=== PATIENT | male | born 1965 | race Caucasian/White ===

== ENCOUNTER 2018-04-10 06:12 | Inpatient (IN) ==
[2018-04-10 08:12] LABS: Baso % (Auto) 0.5 % (0.0-2.0); Eos # (Auto) 0.2 th/mm3 (0.0-0.4); Eos % (Auto) 1.9 % (0.0-4.0); Hematocrit 41.6 % (39.0-51.0); Hemoglobin 14.3 gm/dL (13.0-17.0); Lymph # (Auto) 0.9 th/mm3 (1.0-4.8); Lymph % (Auto) 9.5 % (9.0-44.0); Mean Corpuscular HGB Conc 34.2 % (32.0-36.0); Mean Corpuscular Hemoglobin 32.4 pg (27.0-34.0); Mean Corpuscular Volume 94.6 fL (80.0-100.0); Mean Platelet Volume 8.1 fL (7.0-11.0); Mono # (Auto) 0.6 th/mm3 (0.0-0.9); Mono % (Auto) 5.9 % (0.0-8.0); Neut # (Auto) 7.7 th/mm3 (1.8-7.7); Neut % (Auto) 82.2 % (16.0-70.0); Platelet Count 267 th/mm3 (150-450); Red Cell Distribution Width 13.8 % (11.6-17.2); White Blood Count 9.4 th/mm3 (4.0-11.0)
--- NOTE | 2018-04-10 08:16 | XR ---
EXAM DATE: 04/10/2018 8:04 AM EDT AGE/SEX: 52 years / Male INDICATIONS: Shortness of breath intermittent for 1 month. CLINICAL DATA: This is the patient's initial encounter. Patient reports that signs and symptoms have been present for 1 month and indicates a pain score of 0/10. MEDICAL/SURGICAL HISTORY: None. None. COMPARISON: No prior exams available for comparison. FINDINGS: A single AP view of the chest demonstrates the lungs to be symmetrically aerated without evidence of mass, infiltrate or effusion. Moderate enlargement of cardiac silhouette. Pulmonary vascularity is no rmal. The cardiomediastinal contours are unremarkable. Osseous structures are intact. CONCLUSION: Moderate enlargement of the cardiac silhouette could be cardiomyopathy or pericardial effusion. Electronically signed by: Robret Sanchez MD 04/10/2018 8:14 AM EDT
[2018-04-10 08:33] LABS: Alanine Aminotransferase 31 U/L (12-78); Albumin 3.7 g/dL (3.4-5.0); Anion Gap 6 meq/L (5-15); Aspartate Aminotransferase 13 U/L (15-37); Blood Urea Nitrogen 20 mg/dL (7-18); Calcium 8.8 mg/dL (8.5-10.1); Carbon Dioxide 26.9 meq/L (21.0-32.0); Chloride 107 meq/L (98-107); Glomerular Filtration Rate 59 mL/min (>89); Glucose,Random 102 mg/dL (74-106); Lipase 120 U/L (73-393); Potassium 4.4 meq/L (3.5-5.1); Sodium 140 meq/L (136-145)
[2018-04-10 08:39] LABS: Alkaline Phosphatase 57 U/L (45-117); Creatine Kinase 89 U/L (39-308); Total Protein 6.8 g/dL (6.4-8.2); Troponin I 0.41 ng/mL (0.02-0.05)
--- NOTE | 2018-04-10 09:33 | ED ---
HPI General Chief Complaint: Abdominal Pain Stated Complaint: Back pain,Abd pain Time Seen by Provider: 04/10/18 07:12 History of Present Illness HPI narrative: This is a 52-year-old male with a history of aortic regurgitation , who presents today with one-month history of intermittent exertional epigastric pain. Patient reports the pain comes on and is rated as a 6-7 on the 10 scale. He states that it starts shortly after exerting himself. He states that it is relieved by rest. Patient also reports that sometimes the epigastric discomfort will be relieved by eating. He states that he presents today because he is also had some shortness of breath when he works out. He denies any chest pain, chest pressure. He denies any previous history of such. He does report that he has known aortic regurgitation and was told that he had a slightly enlarged heart. There are no other symptoms at the time of my examination. Related Data Home Medications Medication Instructions Recorded Confirmed No Known Home Medications 04/10/18 04/10/18 Allergies Allergy/AdvReac Type Severity Reaction Status Date / Time tree and shrub pollen Allergy Intermediate itchy rash Verified 04/10/18 07:48 poison oak extract Allergy Swelling Verified 04/10/18 07:47 of Lip/Tongue/Throat Review of Systems ROS: all other systems reviewed are negative Constitutional Denies chills and Denies fever(s) Eyes Reports system reviewed and no additional complaints, except as [facility] ENT Reports system reviewed and no additional complaints, except as [facility] Cardiovascular Denies chest pain, Denies rapid heart rate, Denies irregular heart rhythm, Reports palpitations and Reports other (Occasional "skipped beat".) Respiratory Denies chest congestion, Denies cough, Denies pain on inspiration, Denies pain with cough and Reports dyspnea Gastrointestinal Denies dysphagia, Denies dyspepsia, Denies nausea, Denies vomiting and Reports other (Epigastric pain. Brought on by exertion. Relieved with rest.) Genitourinary Denies hematuria and Denies flank pain Musculoskeletal Denies back pain and Reports other Integumentary/Breasts Denies new lesions and Denies rash Neurologic Reports system reviewed and no additional complaints, except as [facility] Psychiatric Reports system reviewed and no additional complaints, except as [facility] Medical History Medical History Aortic valve regurgitation (Acute) Palpitations (Acute) Social History Social History Substance History: No History of Abuse Second Hand Smoke Exposure: No Smoking Status: Never smoker Tobacco Type: Smokeless Tobacco How Often Do You Have a Drink Containing Alcohol: 2 to 3 times a week Recent Travel in [facility] within the Last 8 Weeks: No Recent Out of Country Travel within the Last 8 Weeks: No Immunization History Tetanus Immunization: Unsure Hx Influenza Vaccine This Season: No Exam Narrative Exam Narrative: GENERAL: Well-developed well-nourished male in no acute respiratory distress. SKIN: Focused skin assessment warm/dry. HEAD: Atraumatic. Normocephalic. EYES: No scleral icterus. No injection or drainage. ENT: No nasal bleeding or discharge. Mucous membranes pink and moist. NECK: Trachea midline. No JVD. Supple. CARDIOVASCULAR: Regular rate and rhythm. 3/6 systolic murmur left upper sternal border. RESPIRATORY: No accessory muscle use. Clear to auscultation. Breath sounds equal bilaterally. GASTROINTESTINAL: Abdomen soft, non-tender, nondistended. Questionable minimal discomfort over the right upper quadrant. No true Otero sign. No rebound. No pulsatile masses. MUSCULOSKELETAL: No obvious deformities. No clubbing. No cyanosis. No edema. NEUROLOGICAL: Awake and alert. No obvious cranial nerve deficits. Motor grossly within normal limits. Normal speech. PSYCHIATRIC: Appropriate mood and affect; insight and judgment normal. Course Initial Documented Vital Signs Temperature 97.7 F 04/10/18 06:16 Pulse Rate 81 04/10/18 06:16 Respiratory Rate 16 04/10/18 06:16 Blood Pressure 146/92 H 04/10/18 06:16 Pulse Oximetry 99 04/10/18 06:16 Last Documented Vital Signs Temperature 97.8 F 04/14/18 03:00 Pulse Rate 64 04/14/18 06:00 Respiratory Rate 16 04/13/18 23:00 Blood Pressure 104/76 04/14/18 03:00 Pulse Oximetry 97 04/14/18 03:00 Medical Decision Making [facility] Narrative Medical decision making narrative: 52-year-old male with a history of aortic regurgitation, presents today with complaints of exertional epigastric pain. Patient's had this on and off 1 month. Patient is pain-free at the time of examination. EKG shows LVH with T-wave inversion in the lateral leads. There is no acute ST elevation noted. Troponin is elevated at 0.41. The patient is pain-free at the time of my examination. Case was discussed with Dr. Anil Triplett, ferryboat operator helper on-call, who is requested we order a stat echocardiogram as well as inform the medical team that he will likely taken to [facility] today. I have informed the patient of the findings and he is amenable to the plan. He has been given an aspirin and 5 mg of Lopressor. Differential Diagnosis Differential Diagnosis: ACS versus peptic ulcer disease versus pancreatitis versus cholecystitis Lab Data Lab results reviewed: Yes I reviewed the patient's lab results. Result diagrams: 04/14/18 03:03 04/14/18 03:03 Lab Results 04/10/18 04/10/18 04/10/18 Range/Units 08:00 08:00 10:15 WBC 9.4 (4.0-11.0) th/mm3 RBC 4.40 L (4.50-5.90) mil/mm3 Hgb 14.3 (13.0-17.0) gm/dL Hct 41.6 (39.0-51.0) % MCV 94.6 (80.0-100.0) fL MCH 32.4 (27.0-34.0) pg MCHC 34.2 (32.0-36.0) % RDW 13.8 (11.6-17.2) % Plt Count 267 (150-450) th/mm3 MPV 8.1 (7.0-11.0) fL Neut % (Auto) 82.2 H (16.0-70.0) % Lymph % (Auto) 9.5 (9.0-44.0) % [place] % (Auto) 5.9 (0.0-8.0) % Eos % (Auto) 1.9 (0.0-4.0) % Baso % (Auto) 0.5 (0.0-2.0) % Neut # (Auto) 7.7 (1.8-7.7) th/mm3 Lymph # (Auto) 0.9 L (1.0-4.8) th/mm3 [place] # (Auto) 0.6 (0.0-0.9) th/mm3 Eos # (Auto) 0.2 (0.0-0.4) th/mm3 Baso # (Auto) 0.0 (0.0-0.2) th/mm3 WBC Differential . Differential Comment Auto diff final PT 11.6 (9.8-11.6) sec INR 1.1 Ratio APTT 25.5 (24.3-30.1) sec Sodium 140 (136-145) meq/L Potassium 4.4 (3.5-5.1) meq/L Chloride 107 (98-107) meq/L Carbon Dioxide 26.9 (21.0-32.0) meq/L Anion Gap 6 (5-15) meq/L BUN 20 H (7-18) mg/dL Creatinine 1.29 (0.60-1.30) mg/dL Estimated GFR 59 L (>89) mL/min Random Glucose 102 (74-106) mg/dL Hemoglobin A1c (4.3-6.0) % Calcium 8.8 (8.5-10.1) mg/dL Total Bilirubin 1.0 (0.2-1.0) mg/dL AST 13 L (15-37) U/L ALT 31 (12-78) U/L Alkaline Phosphatase 57 (45-117) U/L Total Creatine Kinase 89 (39-308) U/L Troponin I 0.41 H (0.02-0.05) ng/mL Total Protein 6.8 (6.4-8.2) g/dL Albumin 3.7 (3.4-5.0) g/dL Lipase 120 (73-393) U/L Urine Color (Yellw/Straw) Urine Clarity (Clear) Urine pH (5.0-8.5) Ur Specific [place] (1.002-1.035) Urine Protein (Neg-Trace) mg/dL Urine Glucose (UA) (Negative) mg/dL Urine Ketones (Negative) mg/dL Urine Occult Blood (Negative) Urine Nitrate (Negative) Urine Bilirubin (Negative) Urine Urobilinogen (Less than 2) mg/dL Ur Leukocyte Esterase (Negative) Micro UA Comment Urine Culture Comments Nasal Screen MRSA (PCR) (Negative) Blood Type Blood Type Recheck Weak D (Du) Antibody Screen MTS Gel Crossmatch Bld Prod Order Comment 04/10/18 04/10/18 04/10/18 Range/Units 10:20 14:00 16:40 WBC (4.0-11.0) th/mm3 RBC (4.50-5.90) mil/mm3 Hgb (13.0-17.0) gm/dL Hct (39.0-51.0) % MCV (80.0-100.0) fL MCH (27.0-34.0) pg MCHC (32.0-36.0) % RDW (11.6-17.2) % Plt Count (150-450) th/mm3 MPV (7.0-11.0) fL Neut % (Auto) (16.0-70.0) % Lymph % (Auto) (9.0-44.0) % [place] % (Auto) (0.0-8.0) % Eos % (Auto) (0.0-4.0) % Baso % (Auto) (0.0-2.0) % Neut # (Auto) (1.8-7.7) th/mm3 Lymph # (Auto) (1.0-4.8) th/mm3 [place] # (Auto) (0.0-0.9) th/mm3 Eos # (Auto) (0.0-0.4) th/mm3 Baso # (Auto) (0.0-0.2) th/mm3 WBC Differential Differential Comment PT (9.8-11.6) sec INR Ratio APTT (24.3-30.1) sec Sodium (136-145) meq/L Potassium (3.5-5.1) meq/L Chloride (98-107) meq/L Carbon Dioxide (21.0-32.0) meq/L Anion Gap (5-15) meq/L BUN (7-18) mg/dL Creatinine (0.60-1.30) mg/dL Estimated GFR (>89) mL/min Random Glucose (74-106) mg/dL Hemoglobin A1c (4.3-6.0) % Calcium (8.5-10.1) mg/dL Total Bilirubin (0.2-1.0) mg/dL AST (15-37) U/L ALT (12-78) U/L Alkaline Phosphatase (45-117) U/L Total Creatine Kinase (39-308) U/L Troponin I (0.02-0.05) ng/mL Total Protein (6.4-8.2) g/dL Albumin (3.4-5.0) g/dL Lipase (73-393) U/L Urine Color Straw Yellow (Yellw/Straw) Urine Clarity Clear Clear (Clear) Urine pH 5.0 5.0 (5.0-8.5) Ur Specific [place] 1.006 1.060 H (1.002-1.035) Urine Protein Negative Negative (Neg-Trace) mg/dL Urine Glucose (UA) Negative Negative (Negative) mg/dL Urine Ketones Negative Negative (Negative) mg/dL Urine Occult Blood Negative Negative (Negative) Urine Nitrate Negative Negative (Negative) Urine Bilirubin Negative Negative (Negative) Urine Urobilinogen Less than 2 Less than 2 (Less than 2) mg/dL Ur Leukocyte Esterase Negative Negative (Negative) Micro UA Comment Culture not ind Culture not ind Urine Culture Comments Culture not ind Culture not ind Nasal Screen MRSA (PCR) Not detected (Negative) Blood Type Blood Type Recheck Weak D (Du) Antibody Screen MTS Gel Crossmatch Bld Prod Order Comment 04/10/18 04/10/18 04/10/18 Range/Units 16:45 19:58 19:58 WBC 8.7 (4.0-11.0) th/mm3 RBC 4.36 L (4.50-5.90) mil/mm3 Hgb 14.3 (13.0-17.0) gm/dL Hct 40.2 (39.0-51.0) % MCV 92.2 (80.0-100.0) fL MCH 32.7 (27.0-34.0) pg MCHC 35.5 (32.0-36.0) % RDW 13.4 (11.6-17.2) % Plt Count 263 (150-450) th/mm3 MPV 8.3 (7.0-11.0) fL Neut % (Auto) (16.0-70.0) % Lymph % (Auto) (9.0-44.0) % [place] % (Auto) (0.0-8.0) % Eos % (Auto) (0.0-4.0) % Baso % (Auto) (0.0-2.0) % Neut # (Auto) (1.8-7.7) th/mm3 Lymph # (Auto) (1.0-4.8) th/mm3 [place] # (Auto) (0.0-0.9) th/mm3 Eos # (Auto) (0.0-0.4) th/mm3 Baso # (Auto) (0.0-0.2) th/mm3 WBC Differential Differential Comment PT (9.8-11.6) sec INR Ratio APTT (24.3-30.1) sec Sodium (136-145) meq/L Potassium (3.5-5.1) meq/L Chloride (98-107) meq/L Carbon Dioxide (21.0-32.0) meq/L Anion Gap (5-15) meq/L BUN (7-18) mg/dL Creatinine (0.60-1.30) mg/dL Estimated GFR (>89) mL/min Random Glucose (74-106) mg/dL Hemoglobin A1c (4.3-6.0) % Calcium (8.5-10.1) mg/dL Total Bilirubin (0.2-1.0) mg/dL AST (15-37) U/L ALT (12-78) U/L Alkaline Phosphatase (45-117) U/L Total Creatine Kinase (39-308) U/L Troponin I 0.43 H (0.02-0.05) ng/mL Total Protein (6.4-8.2) g/dL Albumin (3.4-5.0) g/dL Lipase (73-393) U/L Urine Color (Yellw/Straw) Urine Clarity (Clear) Urine pH (5.0-8.5) Ur Specific [place] (1.002-1.035) Urine Protein (Neg-Trace) mg/dL Urine Glucose (UA) (Negative) mg/dL Urine Ketones (Negative) mg/dL Urine Occult Blood (Negative) Urine Nitrate (Negative) Urine Bilirubin (Negative) Urine Urobilinogen (Less than 2) mg/dL Ur Leukocyte Esterase (Negative) Micro UA Comment Urine Culture Comments Nasal Screen MRSA (PCR) (Negative) Blood Type A Positive Blood Type Recheck Required Weak D (Du) Antibody Screen Negative MTS Gel Crossmatch Bld Prod Order Comment 04/10/18 04/11/18 04/11/18 Range/Units 19:58 02:43 02:43 WBC 7.0 (4.0-11.0) th/mm3 RBC 4.27 L (4.50-5.90) mil/mm3 Hgb 13.6 (13.0-17.0) gm/dL Hct 39.7 (39.0-51.0) % MCV 93.0 (80.0-100.0) fL MCH 31.9 (27.0-34.0) pg MCHC 34.3 (32.0-36.0) % RDW 13.5 (11.6-17.2) % Plt Count 248 (150-450) th/mm3 MPV 8.0 (7.0-11.0) fL Neut % (Auto) 63.0 (16.0-70.0) % Lymph % (Auto) 22.2 (9.0-44.0) % [place] % (Auto) 8.8 H (0.0-8.0) % Eos % (Auto) 5.3 H (0.0-4.0) % Baso % (Auto) 0.7 (0.0-2.0) % Neut # (Auto) 4.4 (1.8-7.7) th/mm3 Lymph # (Auto) 1.6 (1.0-4.8) th/mm3 [place] # (Auto) 0.6 (0.0-0.9) th/mm3 Eos # (Auto) 0.4 (0.0-0.4) th/mm3 Baso # (Auto) 0.0 (0.0-0.2) th/mm3 WBC Differential . Differential Comment Auto diff final PT (9.8-11.6) sec INR Ratio APTT 25.8 (24.3-30.1) sec Sodium (136-145) meq/L Potassium (3.5-5.1) meq/L Chloride (98-107) meq/L Carbon Dioxide (21.0-32.0) meq/L Anion Gap (5-15) meq/L BUN (7-18) mg/dL Creatinine (0.60-1.30) mg/dL Estimated GFR (>89) mL/min Random Glucose (74-106) mg/dL Hemoglobin A1c (4.3-6.0) % Calcium (8.5-10.1) mg/dL Total Bilirubin (0.2-1.0) mg/dL AST (15-37) U/L ALT (12-78) U/L Alkaline Phosphatase (45-117) U/L Total Creatine Kinase (39-308) U/L Troponin I 0.61 H* (0.02-0.05) ng/mL Total Protein (6.4-8.2) g/dL Albumin (3.4-5.0) g/dL Lipase (73-393) U/L Urine Color (Yellw/Straw) Urine Clarity (Clear) Urine pH (5.0-8.5) Ur Specific [place] (1.002-1.035) Urine Protein (Neg-Trace) mg/dL Urine Glucose (UA) (Negative) mg/dL Urine Ketones (Negative) mg/dL Urine Occult Blood (Negative) Urine Nitrate (Negative) Urine Bilirubin (Negative) Urine Urobilinogen (Less than 2) mg/dL Ur Leukocyte Esterase (Negative) Micro UA Comment Urine Culture Comments Nasal Screen MRSA (PCR) (Negative) Blood Type Blood Type Recheck Weak D (Du) Antibody Screen MTS Gel Crossmatch Bld Prod Order Comment 04/11/18 04/12/18 04/13/18 Range/Units 02:43 03:38 00:53 WBC 7.9 (4.0-11.0) th/mm3 RBC 4.31 L (4.50-5.90) mil/mm3 Hgb 13.8 (13.0-17.0) gm/dL Hct 40.0 (39.0-51.0) % MCV 93.0 (80.0-100.0) fL MCH 32.1 (27.0-34.0) pg MCHC 34.5 (32.0-36.0) % RDW 13.9 (11.6-17.2) % Plt Count 238 (150-450) th/mm3 MPV 8.3 (7.0-11.0) fL Neut % (Auto) (16.0-70.0) % Lymph % (Auto) (9.0-44.0) % [place] % (Auto) (0.0-8.0) % Eos % (Auto) (0.0-4.0) % Baso % (Auto) (0.0-2.0) % Neut # (Auto) (1.8-7.7) th/mm3 Lymph # (Auto) (1.0-4.8) th/mm3 [place] # (Auto) (0.0-0.9) th/mm3 Eos # (Auto) (0.0-0.4) th/mm3 Baso # (Auto) (0.0-0.2) th/mm3 WBC Differential Differential Comment PT (9.8-11.6) sec INR Ratio APTT (24.3-30.1) sec Sodium 142 (136-145) meq/L Potassium 4.2 (3.5-5.1) meq/L Chloride 109 H (98-107) meq/L Carbon Dioxide 26.3 (21.0-32.0) meq/L Anion Gap 7 (5-15) meq/L BUN 17 (7-18) mg/dL Creatinine 1.18 (0.60-1.30) mg/dL Estimated GFR 65 L (>89) mL/min Random Glucose 91 (74-106) mg/dL Hemoglobin A1c (4.3-6.0) % Calcium 8.6 (8.5-10.1) mg/dL Total Bilirubin (0.2-1.0) mg/dL AST (15-37) U/L ALT (12-78) U/L Alkaline Phosphatase (45-117) U/L Total Creatine Kinase (39-308) U/L Troponin I (0.02-0.05) ng/mL Total Protein (6.4-8.2) g/dL Albumin (3.4-5.0) g/dL Lipase (73-393) U/L Urine Color (Yellw/Straw) Urine Clarity (Clear) Urine pH (5.0-8.5) Ur Specific [place] (1.002-1.035) Urine Protein (Neg-Trace) mg/dL Urine Glucose (UA) (Negative) mg/dL Urine Ketones (Negative) mg/dL Urine Occult Blood (Negative) Urine Nitrate (Negative) Urine Bilirubin (Negative) Urine Urobilinogen (Less than 2) mg/dL Ur Leukocyte Esterase (Negative) Micro UA Comment Urine Culture Comments Nasal Screen MRSA (PCR) (Negative) Blood Type A Positive Blood Type Recheck Weak D (Du) Antibody Screen Negative MTS Gel Crossmatch See Detail Bld Prod Order Comment 04/13/18 04/13/18 04/13/18 Range/Units 00:53 03:37 03:37 WBC (4.0-11.0) th/mm3 RBC (4.50-5.90) mil/mm3 Hgb (13.0-17.0) gm/dL Hct (39.0-51.0) % MCV (80.0-100.0) fL MCH (27.0-34.0) pg MCHC (32.0-36.0) % RDW (11.6-17.2) % Plt Count (150-450) th/mm3 MPV (7.0-11.0) fL Neut % (Auto) (16.0-70.0) % Lymph % (Auto) (9.0-44.0) % [place] % (Auto) (0.0-8.0) % Eos % (Auto) (0.0-4.0) % Baso % (Auto) (0.0-2.0) % Neut # (Auto) (1.8-7.7) th/mm3 Lymph # (Auto) (1.0-4.8) th/mm3 [place] # (Auto) (0.0-0.9) th/mm3 Eos # (Auto) (0.0-0.4) th/mm3 Baso # (Auto) (0.0-0.2) th/mm3 WBC Differential Differential Comment PT 11.4 (9.8-11.6) sec INR 1.1 Ratio APTT (24.3-30.1) sec Sodium (136-145) meq/L Potassium (3.5-5.1) meq/L Chloride (98-107) meq/L Carbon Dioxide (21.0-32.0) meq/L Anion Gap (5-15) meq/L BUN (7-18) mg/dL Creatinine (0.60-1.30) mg/dL Estimated GFR (>89) mL/min Random Glucose (74-106) mg/dL Hemoglobin A1c 5.9 (4.3-6.0) % Calcium (8.5-10.1) mg/dL Total Bilirubin (0.2-1.0) mg/dL AST (15-37) U/L ALT (12-78) U/L Alkaline Phosphatase (45-117) U/L Total Creatine Kinase (39-308) U/L Troponin I (0.02-0.05) ng/mL Total Protein (6.4-8.2) g/dL Albumin (3.4-5.0) g/dL Lipase (73-393) U/L Urine Color (Yellw/Straw) Urine Clarity (Clear) Urine pH (5.0-8.5) Ur Specific [place] (1.002-1.035) Urine Protein (Neg-Trace) mg/dL Urine Glucose (UA) (Negative) mg/dL Urine Ketones (Negative) mg/dL Urine Occult Blood (Negative) Urine Nitrate (Negative) Urine Bilirubin (Negative) Urine Urobilinogen (Less than 2) mg/dL Ur Leukocyte Esterase (Negative) Micro UA Comment Urine Culture Comments Nasal Screen MRSA (PCR) (Negative) Blood Type Blood Type Recheck Weak D (Du) Cancelled Antibody Screen MTS Gel Crossmatch Bld Prod Order Comment 04/14/18 04/14/18 Range/Units 03:03 03:03 WBC 6.4 (4.0-11.0) th/mm3 RBC 4.32 L (4.50-5.90) mil/mm3 Hgb 13.9 (13.0-17.0) gm/dL Hct 40.7 (39.0-51.0) % MCV 94.4 (80.0-100.0) fL MCH 32.2 (27.0-34.0) pg MCHC 34.1 (32.0-36.0) % RDW 13.9 (11.6-17.2) % Plt Count 231 (150-450) th/mm3 MPV 8.3 (7.0-11.0) fL Neut % (Auto) (16.0-70.0) % Lymph % (Auto) (9.0-44.0) % [place] % (Auto) (0.0-8.0) % Eos % (Auto) (0.0-4.0) % Baso % (Auto) (0.0-2.0) % Neut # (Auto) (1.8-7.7) th/mm3 Lymph # (Auto) (1.0-4.8) th/mm3 [place] # (Auto) (0.0-0.9) th/mm3 Eos # (Auto) (0.0-0.4) th/mm3 Baso # (Auto) (0.0-0.2) th/mm3 WBC Differential Differential Comment PT (9.8-11.6) sec INR Ratio APTT (24.3-30.1) sec Sodium 143 (136-145) meq/L Potassium 4.2 (3.5-5.1) meq/L Chloride 110 H (98-107) meq/L Carbon Dioxide 27.3 (21.0-32.0) meq/L Anion Gap 6 (5-15) meq/L BUN 12 (7-18) mg/dL Creatinine 1.04 (0.60-1.30) mg/dL Estimated GFR 75 L (>89) mL/min Random Glucose 93 (74-106) mg/dL Hemoglobin A1c (4.3-6.0) % Calcium 8.7 (8.5-10.1) mg/dL Total Bilirubin (0.2-1.0) mg/dL AST (15-37) U/L ALT (12-78) U/L Alkaline Phosphatase (45-117) U/L Total Creatine Kinase (39-308) U/L Troponin I (0.02-0.05) ng/mL Total Protein (6.4-8.2) g/dL Albumin (3.4-5.0) g/dL Lipase (73-393) U/L Urine Color (Yellw/Straw) Urine Clarity (Clear) Urine pH (5.0-8.5) Ur Specific [place] (1.002-1.035) Urine Protein (Neg-Trace) mg/dL Urine Glucose (UA) (Negative) mg/dL Urine Ketones (Negative) mg/dL Urine Occult Blood (Negative) Urine Nitrate (Negative) Urine Bilirubin (Negative) Urine Urobilinogen (Less than 2) mg/dL Ur Leukocyte Esterase (Negative) Micro UA Comment Urine Culture Comments Nasal Screen MRSA (PCR) (Negative) Blood Type Blood Type Recheck Weak D (Du) Antibody Screen MTS Gel Crossmatch Bld Prod Order Comment Imaging Data Radiologist's impression: Chest X-Ray 04/10/18 07:36 CONCLUSION: Moderate enlargement of the cardiac silhouette could be cardiomyopathy or pericardial effusion. Carotid Doppler Study 04/11/18 16:24 CONCLUSION: 1. Right Internal Carotid Artery: No significant stenosis or atherosclerotic plaque is visualized. 2. Left Internal Carotid Artery: No significant stenosis or atherosclerotic plaque is visualized. 3. Antegrade flow both vertebral arteries. ECG Data EKG Prior to Arrival: No Attestation: I personally reviewed and interpreted this ECG as follows: (Sinus rhythm rate is 76. Patient had LVH by voltage criteria. There were inverted T waves noted in V5 V6, 1 and aVL. No acute ST elevation noted.) Discharge Plan Discharge Disposition Patient Disposition: 30 Still Patient Discharge Details Diagnosis: Non-STEMI (non-ST elevated myocardial infarction), Cardiomegaly, Aortic regurgitation Physicians Team ED Provider: Mathew Sandoval Primary Care Provider: Primary Care Kiana Barroso Attending Provider: Rick Toscano Other Providers: Anil Triplett ; Mirian Hernandez Status ED Status: Left Department Discharge Information Discharge Date/Time: 04/10/18 11:01
--- NOTE | 2018-04-10 09:50 | P.HPFP ---
History of Present Illness Primary Care Physician: No Primary Care Physician <Rick Toscano - 04/11/18 11:53> No Primary Care Physician <Heath Vazquez - 04/10/18 09:50> History of Present Illness: Patient is a 52-year-old male with past history of aortic regurgitation, cardiomegaly who presents today for abdominal pain. He reports that he began having abdominal pain approximately 1 month ago, is typically present when he is physically active. Is not exacerbated by position or food. At the same time he will have a pain in the center of his back. He also occasionally notes shortness of breath. He denies nausea, vomiting, fever , chills, chest pain, left arm or jaw pain, lightheadedness, change in vision, headache. He did attempt to relieve the abdominal pain with an antacid to no relief. He also reports one episode of dizziness yesterday. He reports he came in today because "I know my body I know when something is up." Patient reports normal bowel movements, soft, brown, no blood or black spots. Normal urination, no dysuria, no change in frequency/color/smell. No other complaints today. 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 Family Mother: Cholecystectomy, "Leaky valve" Father: RA Social EtOH: On the weekends, 8-12 beers Smoking: Chew tobacco ~ 35 years Drugs: None <Heath Vazquez - 04/10/18 11:06> - Diagnosis (1) Non-STEMI (non-ST elevated myocardial infarction) (2) Aortic regurgitation (3) Nutrition, metabolism, and development symptoms <Rick Toscano - 04/11/18 11:53> (1) Non-STEMI (non-ST elevated myocardial infarction) (2) Aortic regurgitation (3) Nutrition, metabolism, and development symptoms <Heath Vazquez - 04/10/18 10:51> Inpatient Certification: I certify that the inpatient services were ordered in accordance with Medicare regulations governing the order. This includes certification that hospital inpatient services are reasonable and necessary and in the case of services not specified as inpatient-only under 42 CFR 419.22(n), that they are appropriately provided as inpatient services in accordance to with the 2-midnight benchmark under 43 CFR 412.3(e) <Rick Toscano 04/11/18 11:53> Review of Systems Constitutional: Denies body ache(s), Denies chills, Denies fever(s), Denies headache(s), Denies lack of energy, Denies weakness <Heath Vazquez 11:06> Eyes: Denies blind spots, Denies blurry vision, Denies change in vision, Denies double vision, Denies loss of vision <Heath Vazquez 04/10/18 11:06> Ears, Nose, Mouth, and Throat: Denies abnormal hearing, Denies ear pain, Denies nosebleed, Denies nasal discharge <Heath Vazquez 04/10/18 11:06> Cardiovascular: Reports shortness of breath when lying down (Occasional SOB while lying down), Denies chest pain, Denies chest pain at rest, Denies chest pain with activity, Denies excessive sweating, Denies fast heart rate, Denies foot swelling, Denies generalized swelling, Denies leg pain with activity, Denies radiating jaw, neck or arm pain <Heath Vazquez 04/10/18 11:06> Respiratory: Denies cough, Denies coughing up blood, Denies snoring, Denies wheezing <Heath Vazquez 04/10/18 11:06> Gastrointestinal: Reports abdominal pain, Reports bloating, Reports heartburn, Denies black, tarry stools, Denies bright, red blood in stools, Denies change in bowel habits, Denies change in stools, Denies coffee ground vomit, Denies constipation, Denies loose stools, Denies nausea, Denies vomiting, Denies vomiting blood <Heath Vazquez 04/10/18 11:06> Genitourinary: Denies painful urination, Denies urinary frequency <Heath Vazquez 04/10/18 11:06> Musculoskeletal: Reports back pain, Denies joint pain, Denies muscle weakness <Heath Vazquez 04/10/18 11:06> Skin/Breast: Denies rash, Denies skin ulcer, Denies sores <Heath Vazquez 04/10/18 11:06> Neurologic: Denies abnormal hearing, Denies abnormal speech, Denies confusion, Denies dizziness, Denies fainting, Denies weakness <SuelorieHeath Morocho 11:06> Psychiatric: Denies anxiety, Denies confusion <SueHeath melo 04/10/18 11: 06> Endocrine: Denies excessive sweating, Denies flushing <SuelorieHeath Morocho 05/20 11:06> Hematologic/Lymphatic: Denies easy bleeding, Denies easy bruising <SueHeath melo A 04/10/18 11:06> PMFSH - History History Provided By: Patient <SuelorieDarrion 04/10/18 09:50> - Medical History Medical History: Medical History (Last Updated 04/10/18 @ 06:19 by Cruzito Jc) Aortic valve regurgitation Palpitations <Rick Toscano 04/11/18 11:53> Medical History (Last Updated 04/10/18 @ 06:19 by Cruzito Jc) Aortic valve regurgitation Palpitations <SueHeath melo 04/10/18 09:50> - Tobacco History Second Hand Smoke Exposure: No <Heath Vazquez 04/10/18 09:50> Tobacco Use In Past 30 Days: Yes <SueHeath melo 04/10/18 09:50> Smoking Status: Never smoker <SueHeath melo 04/10/18 09:50> Tobacco Type: Smokeless Tobacco <SueHeath melo 04/10/18 09:50> - Alcohol History How Often Do You Have a Drink Containing Alcohol: 2 to 3 times a week <Heath Vazquez 04/10/18 09:50> - Substance Use History Substance History: No History of Abuse <SueHeath melo 04/10/18 09:50> - Travel History Recent Travel in the [facility] Within the Last 8 Weeks: No <Heath Vazquez 04/10 09:50> Recent Travel Out of the Country Within the Last 8 Weeks: No <Heath Vazquez 04/10/18 09:50> - Immunization History Tetanus Immunization: Unsure <Heath Vazquez 04/10/18 09:50> Hx Influenza Vaccine This Season: No <Heath Vazquez 04/10/18 09:50> Medications and Allergies Allergies Allergy/AdvReac Type Severity Reaction Status Date / Time tree and shrub pollen Allergy Intermediate itchy rash Verified 04/10/18 07:48 poison oak extract Allergy Swelling Verified 04/10/18 07:47 of Lip/Tongue/Throat <Rick Toscano - 04/11/18 11:53> Home Medications Medication Instructions Recorded Confirmed Type No Known Home Medications 04/10/18 04/10/18 History <Rick Toscano - 04/11/18 11:53> Active Medications: Active Medications Al Hydroxide/Mg Hydroxide (Milk Of [place]) 30 ml PO Q12H PRN PRN Reason: Mild Constipation Chlorhexidine Gluconate (Hibiclens 4% Topical) 1 applicatio 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 [facility] Stop: 04/16/18 16:24 Sodium Chloride 500 ml/ (Cefazolin Sodium 500 mg) 0 ml IRRIGATION PADDED [employer]ODUCTS 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 [facility] Stop: 04/16/18 16:27 Dextrose (D50w Vial) 50 ml IV.PUSH UNSCH PRN PRN Reason: PER HYPOGLYCEMIA PROTOCOL Sodium Chloride (Ns Inj) 1,000 mls @ 100 mls/hr IV.CONT .Q10H [facility] Last Admin: 04/11/18 09:16 Dose: Not Given Insulin Human Regular 100 unit (/ Sodium Chloride) 100 mls @ 3 mls/hr IV.CONT TITRATE PRN; Protocol PRN Reason: See Protocol Cefazolin Sodium 2,000 mg/ (Sodium Chloride) 100 mls @ 200 mls/hr IV.SIG [employer] [facility] Stop: 04/16/18 16:27 Metoprolol Tartrate (Lopressor) 12.5 mg PO [employer] [facility] Stop: 04/16/18 16:27 Mupirocin (Bactroban 2% Nasal Oint) 1 applicatio EACH NARE BID [facility] Stop: 04/14/18 16:27 Last Admin: 04/11/18 09:15 Dose: 1 applicatio Ondansetron HCl (Zofran Inj) 4 mg IV.PUSH Q6H PRN PRN Reason: NAUSEA OR VOMITING Senna/Docusate Sodium (Lizett-Colace) 1 tab PO BID [facility] Last Admin: 04/11/18 09:15 Dose: Not Given Sennosides (Senokot) 17.2 mg PO Q12H PRN PRN Reason: Moderate Constipation Sodium Chloride (Ns Flush) 2 ml IV.FLUSH PRN PRN PRN Reason: FLUSH AFTER USING IV ACCESS Sodium Chloride (Ns Flush) 2 ml IV.FLUSH BID [facility] Last Admin: 04/11/18 09:15 Dose: 2 ml Sodium Chloride (Ns Flush) 2 ml IV.FLUSH PRN PRN PRN Reason: FLUSH AFTER USING IV ACCESS Sodium Chloride (Ns Flush) 2 ml IV.FLUSH BID [facility] Last Admin: 04/11/18 09:15 Dose: Not Given <Rick Toscano - 04/11/18 11:53> Active Medications Sodium Chloride (Ns Flush) 2 ml IV.FLUSH PRN PRN PRN Reason: FLUSH AFTER USING IV ACCESS <Heath Vazquez - 04/10/18 09:50> Exam Vital signs: Vital Signs 04/10/18 12:35 04/10/18 17:00 04/10/18 17:01 Temperature 97.8 F Pulse Rate 70 75 Respiratory Rate 16 Blood Pressure 116/83 Pulse Oximetry 96 97 04/10/18 18:00 04/10/18 19:00 04/10/18 20:00 Temperature 98.4 F Pulse Rate 68 73 72 Respiratory Rate 18 Blood Pressure 113/78 Pulse Oximetry 97 97 04/10/18 21:00 04/10/18 22:00 04/10/18 23:00 Temperature 98.7 F Pulse Rate 66 68 96 H Respiratory Rate 20 Blood Pressure 106/79 Pulse Oximetry 99 04/11/18 00:00 04/11/18 01:00 04/11/18 02:00 Temperature Pulse Rate 54 L 56 L 54 L Respiratory Rate Blood Pressure Pulse Oximetry 04/11/18 02:15 04/11/18 03:00 04/11/18 04:00 Temperature 97.9 F Pulse Rate 78 78 Respiratory Rate 20 Blood Pressure 113/79 Pulse Oximetry 97 99 04/11/18 05:00 04/11/18 06:00 04/11/18 07:00 Temperature Pulse Rate 58 L 62 74 Respiratory Rate Blood Pressure Pulse Oximetry 04/11/18 07:27 04/11/18 08:00 04/11/18 09:00 Temperature 97.4 F L Pulse Rate 61 60 82 Respiratory Rate 16 Blood Pressure 122/87 Pulse Oximetry 98 98 04/11/18 09:45 04/11/18 10:00 Temperature Pulse Rate 68 Respiratory Rate Blood Pressure Pulse Oximetry 98 Intake & Output 04/10/18 04/11/18 04/11/18 18:59 06:59 18:59 Intake Total 495 / 495 240 / 240 Output Total 300 / 300 Balance 195 / 195 240 / 240 Weight 108.5 kg Intake: IV 15 / 15 Heparin/NS PF Inj 1,000 ML @ 0 15 / 15 mls/hr .ROUTE .[facility] Rx#: [id number] Oral 480 / 480 240 / 240 Output: Urine 300 / 300 Other: # Voids 3 Date of Last Bowel Movement 04/10/18 04/10/18 04/11/18 <Rick Toscano - 04/11/18 11:53> Vital Signs 04/10/18 06:16 04/10/18 06:20 04/10/18 07:50 Temperature 97.7 F Pulse Rate 81 Respiratory Rate 16 17 Blood Pressure 146/92 H Pulse Oximetry 99 97 Intake & Output 04/09/18 04/10/18 04/10/18 18:59 06:59 18:59 Weight 106.594 kg <Heath Vazquez - 04/10/18 09:50> Narrative: GENERAL: Laying in bed, no acute distress SKIN: Warm and dry. No acute lesions. No CVA tenderness. HEAD: Atraumatic. Normocephalic. EYES: Pupils equal and round. No scleral icterus. No injection or drainage. ENT: No nasal bleeding or discharge. Mucous membranes pink and moist. NECK: Trachea midline. No JVD. CARDIOVASCULAR: Regular rate and rhythm. Significant murmur at right sternal border. RESPIRATORY: No accessory muscle use. Clear to auscultation. Breath sounds equal bilaterally. GASTROINTESTINAL: Abdomen soft, non-tender, nondistended. Hepatic and splenic margins not palpable. MUSCULOSKELETAL: Extremities without clubbing, cyanosis, or edema. No obvious deformities. NEUROLOGICAL: Awake and alert. No obvious cranial nerve deficits. Motor grossly within normal limits. Five out of 5 muscle strength in the arms and legs. Normal speech. PSYCHIATRIC: Appropriate mood and affect; insight and judgment normal. <Heath Vazquez 04/10/18 11:06> Results - Labs Result diagrams: 04/11/18 02:43 04/11/18 02:43 <Rick Toscano 08/10/18 11:53> Abnormal lab results 04/10/18 04/10/18 04/10/18 Range/Units 14:00 19:58 19:58 RBC 4.36 L (4.50-5.90) mil/mm3 [place] % (Auto) (0.0-8.0) % Eos % (Auto) (0.0-4.0) % Chloride (98-107) meq/L Estimated GFR (>89) mL/min Troponin I 0.43 H (0.02-0.05) ng/mL Ur Specific [place] 1.060 H (1.002-1.035) 04/11/18 04/11/18 04/11/18 Range/Units 02:43 02:43 02:43 RBC 4.27 L (4.50-5.90) mil/mm3 [place] % (Auto) 8.8 H (0.0-8.0) % Eos % (Auto) 5.3 H (0.0-4.0) % Chloride 109 H (98-107) meq/L Estimated GFR 65 L (>89) mL/min Troponin I 0.61 H* (0.02-0.05) ng/mL Ur Specific [place] (1.002-1.035) Short CBC 04/10/18 04/11/18 Range/Units 19:58 02:43 WBC 8.7 7.0 (4.0-11.0) th/mm3 Hgb 14.3 13.6 (13.0-17.0) gm/dL Hct 40.2 39.7 (39.0-51.0) % Plt Count 263 248 (150-450) th/mm3 BMP 04/11/18 02:43 Sodium 142 Potassium 4.2 Chloride 109 H Carbon Dioxide 26.3 BUN 17 Creatinine 1.18 Calcium 8.6 Cardiac Enzymes 04/10/18 04/11/18 Range/Units 19:58 02:43 Troponin I 0.43 H 0.61 H* (0.02-0.05) ng/mL Urine 04/10/18 04/10/18 Range/Units 10:20 14:00 Urine Color Straw Yellow (Yellw/Straw) Urine Clarity Clear Clear (Clear) Urine pH 5.0 5.0 (5.0-8.5) Ur Specific [place] 1.006 1.060 H (1.002-1.035) Urine Protein Negative Negative (Neg-Trace) mg/dL Urine Glucose (UA) Negative Negative (Negative) mg/dL <Rick Toscano - 04/11/18 11:53> Abnormal lab results 04/10/18 04/10/18 Range/Units 08:00 08:00 RBC 4.40 L (4.50-5.90) mil/mm3 Neut % (Auto) 82.2 H (16.0-70.0) % Lymph # (Auto) 0.9 L (1.0-4.8) th/mm3 BUN 20 H (7-18) mg/dL Estimated GFR 59 L (>89) mL/min AST 13 L (15-37) U/L Troponin I 0.41 H (0.02-0.05) ng/mL Short CBC 04/10/18 Range/Units 08:00 WBC 9.4 (4.0-11.0) th/mm3 Hgb 14.3 (13.0-17.0) gm/dL Hct 41.6 (39.0-51.0) % Plt Count 267 (150-450) th/mm3 BMP 04/10/18 08:00 Sodium 140 Potassium 4.4 Chloride 107 Carbon Dioxide 26.9 BUN 20 H Creatinine 1.29 Calcium 8.8 Cardiac Enzymes 04/10/18 Range/Units 08:00 Total Creatine Kinase 89 (39-308) U/L Troponin I 0.41 H (0.02-0.05) ng/mL Liver Function 04/10/18 Range/Units 08:00 Total Bilirubin 1.0 (0.2-1.0) mg/dL AST 13 L (15-37) U/L ALT 31 (12-78) U/L Alkaline Phosphatase 57 (45-117) U/L Albumin 3.7 (3.4-5.0) g/dL <Heath Vazquez - 04/10/18 09:50> - Imaging Impressions Carotid Doppler Study 04/11/18 16:24 CONCLUSION: 1. Right Internal Carotid Artery: No significant stenosis or atherosclerotic plaque is visualized. 2. Left Internal Carotid Artery: No significant stenosis or atherosclerotic plaque is visualized. 3. Antegrade flow both vertebral arteries. <Rick Toscano - 04/11/18 11:53> Impressions Chest X-Ray 04/10/18 07:36 CONCLUSION: Moderate enlargement of the cardiac silhouette could be cardiomyopathy or pericardial effusion. <Heath Vazquez - 04/10/18 09:50> Caprini VTE Risk Assessment Caprini VTE Risk Assessment: No/Low Risk (score <= 1) <Heath Vazquez - 05/20 11:06> [place] Risk Assessment Model: Point Value = 1 Point Value = 2 Point Value = 3 Point Value = 5 Age 41-60 Minor surgery BMI > 25 kg/m2 Swollen legs Varicose veins or History of unexplained or recurrent spontaneous Oral contraceptives or hormone replacement Sepsis (< 1 month) Serious lung disease, including pneumonia (< 1 month) Abnormal pulmonary function Acute myocardial infarction Congestive heart failure (< 1 month) History of inflammatory bowel disease Medical patient at bed rest Age 61-74 Arthroscopic surgery Major open surgery (> 45 min) Laparoscopic surgery (> 45 min) Malignancy Confined to bed (> 72 hours) Immobilizing plaster cast Central venous access Age >= 75 History of VTE Family history of VTE Factor V Leiden Prothrombin [id number] Lupus anticoagulant Anticardiolipin antibodies Elevated serum homocysteine Heparin-induced thrombocytopenia Other congenital or acquired thrombophilia Stroke (< 1 month) Elective arthroplasty Hip, pelvis, or leg fracture Acute spinal cord injury (< 1 month) <Rick Toscano - 04/11/18 11:53> Point Value = 1 Point Value = 2 Point Value = 3 Point Value = 5 Age 41-60 Minor surgery BMI > 25 kg/m2 Swollen legs Varicose veins or History of unexplained or recurrent spontaneous Oral contraceptives or hormone replacement Sepsis (< 1 month) Serious lung disease, including pneumonia (< 1 month) Abnormal pulmonary function Acute myocardial infarction Congestive heart failure (< 1 month) History of inflammatory bowel disease Medical patient at bed rest Age 61-74 Arthroscopic surgery Major open surgery (> 45 min) Laparoscopic surgery (> 45 min) Malignancy Confined to bed (> 72 hours) Immobilizing plaster cast Central venous access Age >= 75 History of VTE Family history of VTE Factor V Leiden Prothrombin [id number] Lupus anticoagulant Anticardiolipin antibodies Elevated serum homocysteine Heparin-induced thrombocytopenia Other congenital or acquired thrombophilia Stroke (< 1 month) Elective arthroplasty Hip, pelvis, or leg fracture Acute spinal cord injury (< 1 month) <Heath Vazquez - 04/10/18 09:50> Prophylaxis Regimen: Total Risk Factor Score Risk Level Prophylaxis Regimen 0-1 Low Early ambulation 2 Moderate Order ONE of the following: *Sequential Compression Device (SCD) *Heparin 5000 units SQ BID 3-4 Higher Order ONE of the following medications: *Heparin 5000 units SQ TID *Enoxaparin/Lovenox 40 mg SQ daily (WT < 150 kg, CrCl > 30 mL/min) *Enoxaparin/Lovenox 30 mg SQ daily (WT < 150 kg, CrCl > 10-29 mL/min) *Enoxaparin/Lovenox 30 mg SQ BID (WT < 150 kg, CrCl > 30 mL/min) AND/OR *Sequential Compression Device (SCD) 5 or more Highest Order ONE of the following medications: *Heparin 5000 units SQ TID (Preferred with Epidurals) *Enoxaparin/Lovenox 40 mg SQ daily (WT < 150 kg, CrCl > 30 mL/min) *Enoxaparin/Lovenox 30 mg SQ daily (WT < 150 kg, CrCl > 10-29 mL/min) *Enoxaparin/Lovenox 30 mg SQ BID (WT < 150 kg, CrCl > 30 mL/min) AND *Sequential Compression Device (SCD) <Rick Toscano - 04/11/18 11:53> Total Risk Factor Score Risk Level Prophylaxis Regimen 0-1 Low Early ambulation 2 Moderate Order ONE of the following: *Sequential Compression Device (SCD) *Heparin 5000 units SQ BID 3-4 Higher Order ONE of the following medications: *Heparin 5000 units SQ TID *Enoxaparin/Lovenox 40 mg SQ daily (WT < 150 kg, CrCl > 30 mL/min) *Enoxaparin/Lovenox 30 mg SQ daily (WT < 150 kg, CrCl > 10-29 mL/min) *Enoxaparin/Lovenox 30 mg SQ BID (WT < 150 kg, CrCl > 30 mL/min) AND/OR *Sequential Compression Device (SCD) 5 or more Highest Order ONE of the following medications: *Heparin 5000 units SQ TID (Preferred with Epidurals) *Enoxaparin/Lovenox 40 mg SQ daily (WT < 150 kg, CrCl > 30 mL/min) *Enoxaparin/Lovenox 30 mg SQ daily (WT < 150 kg, CrCl > 10-29 mL/min) *Enoxaparin/Lovenox 30 mg SQ BID (WT < 150 kg, CrCl > 30 mL/min) AND *Sequential Compression Device (SCD) <Heath Vazquez - 04/10/18 09:50> Assessment and Plan - Assessment (1) Non-STEMI (non-ST elevated myocardial infarction) Code(s): I21.4 - Non-ST elevation (NSTEMI) myocardial infarction Status: Acute (2) Aortic regurgitation Code(s): I35.1 - Nonrheumatic aortic (valve) insufficiency Status: Acute (3) Nutrition, metabolism, and development symptoms Code(s): R63.8 - Other symptoms and signs concerning food and fluid intake Status: Acute <Rick Toscano - 04/11/18 11:53> (1) Non-STEMI (non-ST elevated myocardial infarction) Code(s): I21.4 - Non-ST elevation (NSTEMI) myocardial infarction Status: Acute Plan: Patient presenting with NSTEMI, initial troponins 0.41. ER physician who reports he had spoken with Dr. Triplett who recommended aspirin, beta-joselyn, will likely take to catheterization later today. No heparin drip at this time. Currently without chest pain. -Serial troponins -Serial EKGs -Aspirin, Metoprolol administered -Follow-up cardiology recommendations -Follow-up stat echocardiogram (2) Aortic regurgitation Code(s): I35.1 - Nonrheumatic aortic (valve) insufficiency Status: Acute Plan: History of aortic regurgitation -Follow-up echocardiogram (3) Nutrition, metabolism, and development symptoms Code(s): R63.8 - Other symptoms and signs concerning food and fluid intake Status: Acute Plan: Fluids: Tolerating p.o. Electrolytes: Monitor and replete as needed Nutrition: Regular diet following cath <Heath Vazquez - 04/10/18 10:51> <Heath Vazquez A - Last Filed: 04/10/18 10:51> (2) Aortic regurgitation Qualifiers: Cardiac valve disease etiology: etiology unspecified Qualified Code(s): I35.1 - Nonrheumatic aortic (valve) insufficiency <Rick Toscano E - Last Filed: 04/11/18 11:53> (2) Aortic regurgitation Qualifiers: Cardiac valve disease etiology: etiology unspecified Qualified Code(s): I35.1 - Nonrheumatic aortic (valve) insufficiency <Heath Vazquez A - Last Filed: 04/10/18 10:51> (2) Aortic regurgitation Qualifiers: Cardiac valve disease etiology: etiology unspecified Qualified Code(s): I35.1 - Nonrheumatic aortic (valve) insufficiency <Rick Toscano E - Last Filed: 04/11/18 11:53> (2) Aortic regurgitation Qualifiers: Cardiac valve disease etiology: etiology unspecified Qualified Code(s): I35.1 - Nonrheumatic aortic (valve) insufficiency
[2018-04-10] MEDS: Metoprolol Inj 5 MG/5 ML Vial IV.PUSH ONE ×2 (10:06→10:39)
[2018-04-10 10:46] LABS: Activated Partial Thrombo Time 25.5 sec (24.3-30.1); INR 1.1 Ratio; Prothrombin Time 11.6 sec (9.8-11.6)
[2018-04-10] MEDS ORDERED: Heparin/NS PF Inj 1,000 ML ONE (11:04)
[2018-04-10] MEDS ORDERED: Heparin 10,000 UNITS/10 ML Vial (for IV use) ONE (11:05)
[2018-04-10] MEDS ORDERED: fentaNYL Citrate Inj 100 MCG/2 ML Ampul ONE (11:10)
[2018-04-10 11:20] LABS: Bilirubin,Urine Negative (Negative); Clarity,Urine Clear (Clear); Color,Urine Straw (Yellw/Straw); Glucose,Urine (UA) Negative (Negative); Leukocyte Esterase,Urine Negative (Negative); Nitrite,Urine Negative (Negative); Specific Gravity,Urine 1.006 (1.002-1.035)
--- NOTE | 2018-04-10 11:33 | MB ---
cc: Anil Triplett MD DATE: 04/10/2018 REASON FOR CONSULTATION: Evaluation of aortic valve disease and angina. HISTORY OF PRESENT ILLNESS: Da Santos is a 52-year-old man who is known to have aortic valve disease. He has not been to a doctor in many years. For the past month, he has been noticing some epigastric pain, worse with exertion. He has also had some shortness of breath and particularly some shortness of breath with lying down and exertional shortness of breath. He has been extra tired and finally came into the hospital, where he was found to have critical aortic valve disease. Denies syncope. He has got a family history of aortic valve disease, in that his father has had his aortic valve replaced and has not been to a doctor in years. 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 FAMILY HISTORY: Father had aortic valve replacement. 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 He is single. He does not smoke. He will drink beer heavily on Fridays and Saturdays, but not during the week. Denies illicit drug use. PHYSICAL EXAMINATION: GENERAL: Reveals a robust well-developed white male, mildly overweight. VITAL SIGNS: Charted. HEENT: Unremarkable. NECK: Shows delayed carotid upstrokes. CHEST: Clear to auscultation. CARDIOVASCULAR: S1 normal. S2 is diminished. He has a prolonged severe aortic stenosis type murmur. ABDOMEN: Soft, nontender. No masses or organomegaly. EXTREMITIES: No clubbing, cyanosis, or edema. LABORATORY DATA: EKG shows sinus rhythm, LVH, and LV strain. Hematocrit is 41.6. Creatinine is 1.29. Troponins are elevated at 0.41. Echo shows a critical aortic stenosis. The aortic valve is heavily calcified. It is probably tricuspid. Aortic root is dilated at 4.6 cm. LV function is severely impaired. There is a round density at the apex that I think is a calcified hematoma. IMPRESSION: Critical aortic stenosis - symptomatic, elevated troponin, impaired left ventricular function, and dilated aortic root. PLAN: I am going to perform diagnostic cardiac catheterization today. We will do this radially and inject the coronaries and then consult CT surgery. It appears that he is more likely going to need open surgery, as opposed to TAVR, because of the apical thrombus. Further therapy to be determined. MD WOLFGANG Deluca/lesley/sabina , 10:58 AM , 11:05 AM
--- NOTE | 2018-04-10 12:20 | CATHPROC ---
[employer] HIS Report Study Information Study Number Admission Scheduled Start Study Start [id number] Apr 10 2018 9:51AM 04/10/2018 Apr 10 2018 10:54AM [place] [facility] Electrophysiology Study Admit Source Facility Department Emergency department [facility] Physician and Clinical Staff Initial Anil Crowley Tractor Trailer Driver Satinder Nice,ROBERT Tractor Trailer Driver Debbie Layton,ROBERT Recorder Krissy Agustin,RT(R) Scrub Weston Dhillon,RT(R) X-Ray Jayleen Larson,RT(R) Procedures Performed Procedure Location (Site) Vessel Name Angiogram LV Asc. Aorta (A) Coronary Angiograms LCA Left Coronary Coronary Angiograms RCA Right Coronary L Heart Cath Equipment Time Client Care Representative Description Size Mfg Part Number Used/Scraped TRANSDUCER, TRUWAVE [id number] 11:21 DOUGLAS ARZATE * Used W/STOCKCOCK *[id number] 534-545T *[id number] 534-546T *[id number] 534-518T *7038584 534-620T *4294442 534-523T *[id number] 534-550S *[id number] [id number] 11:21 MALLINCKRODT SYRINGE, ANGIOMAT 150ML 150ML *[id number] Used 2SUB [id number] 11:21 [employer] BLANKET,WARM AIR CCL * Used *[id number] 11:21 [employer] PACK, CCL CUSTOM * Used *[id number] 11:21 [employer] SUPPORT, ARTERIAL ADULT 16461 *[id number] Used [id number] 11:21 [employer] PACER PEN, SKIN DUAL W/ RULER * Used *[id number] BAND, RADIAL COMPRESSION TR [id number] 12:11 [facility] [place] [facility] 29CM Used LARGE 29 *[id number] 11:21 [employer], a Division of [employer] WIRE, EXCHANGE 260CM 3MMJ 260CM Used *[id number] [id number] 11:21 NAMIC MANIFOLD, 4 PORT * Used *[id number] [id number] 11:55 NAMIC TUBING, HIGH PRESSURE 48" 48" Used *[id number] 11:21 [employer]COMED OMNIPAQUE, 350 MG, 100ML 100ML [id number] Used 12:09 [employer]COMED OMNIPAQUE, 350 MG, 150ML 150ML [id number] Used 12:09 NYCOMED OMNIPAQUE, 350 MG, 50ML 50ML [id number] Used 11:21 Tehnologii obratnyh zadach JELCO NEEDLE 4056 *[id number] Used CATHETER, FR5 OPTITORQUE [id number] 11:59 TERUMO MEDICAL FR 5 Used ONDINA RADIAL *[id number] CATHETER, FR5 OPTITORQUE [id number] 11:14 [employer] MEDICAL FR 5 Used RADIAL TIG 4.0 *[id number] CATHETER, FR5 OPTITORQUE [id number] 11:14 TER[employer] MEDICAL FR 5 Used RADIAL TIG 4.0 *[id number] SHEATH, FR6 TRANSRADIAL 80-1060 11:21 TER[employer] MEDICAL FR 6 Used SLENDER 10CM *[id number] History: Risk Factors Family History of Hypertension Dyslipidemia Previous GA Previous Heart Failure Premature CAD No No No No No Prior Valve Prior PCI Prior CABG Surgery No No No Cerebrovascular Peripheral Artery Chronic Lung On Dialysis Diabetes Disease Disease Disease No No No No No History: Stress Tests Stress or Imaging Studies Performed No Labs Hgb (g/dl) Hct (%) RBC (MIL/MM3) WBC (l/cumm) Platelets (thousands) 11.60-17.00 35.00-51.00 4.00-5.90 4.00-11.00 150.00-450.00 14.3 41.6 4.4 9.4 267 Glucose (mg/dl) BUN (mg/dl) Creatinine (mg/dl) BUN:Creatinine (1:x) 74.00-106.00 7.00-18.00 0.50-1.30 10.00-20.00 102 20 1.2 16.7 Na (meq/l) K (meq/l) Cl (meq/l) CO2 (mmol/L) Ca (mg/dl) 136.00-145.00 3.50-5.10 98.00-107.00 21.00-32.00 8.50-10.10 140 4.4 107 26.9 8.8 PT (sec) PTT (sec) INR (PTT:PT) 9.80-11.60 24.30-30.10 0.90-1.10 11.6 25.5 1.1 Troponin I (ng/ml) CPK (u/l) CPK-MB (ng/ML) 0.02-0.05 26.00-308.00 0.50-3.60 0.4 89 Not Drawn Medication Medication Total Dose (Bolus/Oral) Medication Total Dosage/Unit 1% XYLOCAINE 20 mL FENTANYL 50 mcg RADIAL COCKTAIL 9 mL (Bolus) VERSED 4 mg Medications (Bolus/Oral) Medication Time Given Dosage/Unit Administered By Reason VERSED 04/10/2018 11:18:47 AM 1 mg Arlet, Satinder 1 mg VERSED given in lab by Satinder Nice RN in Left Antecubital via Peripheral IV. Ordered by Anil Triplett. FENTANYL 04/10/2018 11:19:05 AM 50 mcg Arlet, Satinder 50 mcg FENTANYL given in lab by Satinder Nice RN in Left Antecubital via Peripheral IV. Ordered by Anil Ontiveros. VERSED 04/10/2018 11:21:11 AM 1 mg Arlet, Satinder 1 mg VERSED given in lab by Satinder Nice RN via Peripheral IV. Ordered by Anil Triplett. VERSED 04/10/2018 11:23:10 AM 1 mg Arlet, Satinder 1 mg VERSED given in lab by Satinder Nice RN in Left Antecubital via Peripheral IV. Ordered by Anil Triplett. 1% XYLOCAINE 04/10/2018 11:23:45 AM 20 mL Anil Triplett 20 mL 1% XYLOCAINE given in lab by Anil Triplett in Right Radial via Subcutaneous. Ordered by Anil Triplett. Ntg 200mcg Verapamil 2.5mg Heparin RADIAL COCKTAIL 04/10/2018 11:26:00 AM 5 mL (Bolus) Anil Triplett 2500U 5 mL (Bolus) RADIAL COCKTAIL given in lab by Anil Triplett in Right Radial via Intra-arterial. Using [Solution Name]. Reason: Ntg 200mcg Verapamil 2.5mg Heparin 2500U. VERSED 04/10/2018 11:41:05 AM 1 mg Arlet, Satinder 1 mg VERSED given in lab by Satinder Nice RN in Left Antecubital via Peripheral IV. Ordered by Anil Triplett. RADIAL COCKTAIL 04/10/2018 11:42:17 AM 4 mL (Bolus) Anil Triplett 5 mL (Bolus) RADIAL COCKTAIL given in lab by Anil Triplett via Radial. Using [Solution Name]. Reason: Ntg 200mcg Verapamil 2.5mg Medication (Drip) Medication Time Given Dosage/Unit Concentration/Unit Diluent (ml) Solution IV Solutions 04/10/2018 11:04:25 AM 0 mL (IV) 500 NaCl .9 IV Solutions given in lab by Debbie Layton RN in Left Antecubital via Peripheral IV. Pump/Drip Benito w = 20 ml/hr using NaCl .9. Ordered by Anil Triplett. Initial Case Assessment Cardiovascular HR NIBP 76 133/97 Edema Present Skin color Skin None Normal Warm Dry Circulatory - Right Pulses Dorsalis Pedis Femoral Radial 2 2 2 Scale (0,1,2,3,4,d) Circulatory - Left Pulses Dorsalis Pedis Femoral Radial 2 2 Scale (0,1,2,3,4,d) Neurological State Oriented to time-place- Alert Moves all extremities person Respiration - General Respiration Rate SpO2 (%) (B/min) 14 97 Chronological Log Time Study Chronological Log 10:52:00 Patient arrived via Bed. 11:03:47 Patient Name, D.O.B, / Armband Verified By R.N. 11:03:48 Consent signed by the physician and the patient and verified by the [facility] staff. 11:03:49 Pre-op and post- op instructions given; patient acknowledges understanding of instructions. 11:04:09 Allens test performed on the right radial and ulnar artery. 11:04:11 Patient has been NPO for More than 6Hrs. 11:04:12 Skin Breakdown- none per pt 11:04:15 Patient Warmer Placed on the Table. 11:04:17 Loyd Prominences Protected 11:04:24 A # 20 IV was noted in the Antecubital (left). Grade = 0 IV Solutions given in lab by Debbie Layton RN in Left Antecubital via Peripheral IV. Pump/Dr ip Flow = 20 ml/hr using 11:04:25 NaCl .9. Ordered by Anil Triplett. 11:04:26 History and physical on the chart or being dictated. Vitals capture started with the following parameters, Patient=Adult, Interval=5 min, Initial Pr piecbg=321 mmHg, 11:06:29 Deflation Rate=5 mmHg, Cuff placed on Left Arm 11:07:17 HR=76 bpm, VROP=671/97 mmhg, SpO2=97.0 %, Resp=14 B/min, Pain=0, Jacey=10, Palmer=2 Assessment: Initial Case, HR=76 BPM, CPWE=652/97 mmhg, Edema=None, Color=Normal, Skin = Warm, D ry Right Pulses: Bebeto Ped=2, Femoral=2, Radial=2 11:09:14 Left Pulses: Bebeto Ped=2, Femoral=2 Neurological: State=Alert, Ox3, RAI Respiration: Resp=14 B/min, SpO2=97 % 11:09:23 Reference ECG taken 11:10:47 Right Radial and groin(s) prepped with 2% chlorhexidine, and draped after a 3 min. waiting time. 11:12:01 HR=73 bpm, XBAB=372/97 mmhg, SpO2=97.0 %, Resp=14 B/min, Pain=0, Jacey=10, Palmer=2 11:13:36 MD arrived. 11:17:39 HR=73 bpm, HYOW=044/96 mmhg, SpO2=96.0 %, Resp=10 B/min, Pain=0, Jacey=10, Palmer=2 11:18:40 Pressure channel 1 zeroed. 11:18:47 1 mg VERSED given in lab by Satinder Nice RN in Left Antecubital via Peripheral IV. Ordered by Anil Triplett. 11:19:05 50 mcg FENTANYL given in lab by Satinder Nice RN in Left Antecubital via Peripheral IV. Ord ered by Anil Triplett. Time Out. Correct patient, correct procedure, correct physician, labs, allergies, and equipment verified with photo lab specialist 11:20:11 team present. Fire risk assesment completed (see hard stop sheet for coding). Time Out Conc urred by MD and individual staff in procedure. 11:21:08 Case Start 11:21:11 1 mg VERSED given in lab by Satinder Nice RN via Peripheral IV. Ordered by Anil Triplett. 11:21:16 Verbal Stimulation=2 Physical Stimulation=2 Airway=2 Respiration=2 TOTAL=8. (0=absent, 1=li mited, 2=present) 11:21:59 HR=72 bpm, OUEK=015/95 mmhg, SpO2=96.0 %, Pain=0, Jacey=10, Palmer=2 11:23:10 1 mg VERSED given in lab by Arlet, Satinder, RN in Left Antecubital via Peripheral IV. Ordered by Anil Triplett. 11:23:45 20 mL 1% XYLOCAINE given in lab by Anil Triplett in Right Radial via Subcutaneous. Ordered by Anil Triplett. 11:24:16 Access site was Right Radial Artery . A SHEATH, FR6 TRANSRADIAL SLENDER 10CM FR 6 was advanced into the Radial (right) using the Perc utaneous 11:24:35 technique. 5 mL (Bolus) RADIAL COCKTAIL given in lab by Anil Triplett in Right Radial via Intra-arterial. Using [Solution Name]. 11:26:00 Reason: Ntg 200mcg Verapamil 2.5mg Heparin 2500U. 11:27:00 HR=80 bpm, VYPV=600/88 mmhg, SpO2=95 %, Pain=0, Jacey=10, Palmer=2 A JR 5.0 INFINITI CATHETER FR 5 was advanced over a wire. OMNIPAQUE, 350 MG, 100ML 100ML was us ed for 11:28:19 injections. 11:32:04 HR=74 bpm, LCTL=503/74 mmhg, SpO2=92 %, Pain=0, Jacey=10, Palmer=2 After removing the current catheter a AL 1 INFINITI CATHETER FR 5 was advanced over a WIRE, EXC HANGE 260CM 11:35:31 3MMJ 260CM. 11:37:03 HR=70 bpm, YNWG=863/79 mmhg, SpO2=93.0 %, Pain=0, Jacey=10, Palmer=2 11:39:00 Catheter was removed 11:41:05 1 mg VERSED given in lab by Satinder Nice, ROBERT in Left Antecubital via Peripheral IV. Ordered by Anil Triplett. 11:42:02 HR=74 bpm, UGKO=814/85 mmhg, SpO2=94.0 %, Resp=10 B/min, Pain=0, Jacey=10, Palmer=2 5 mL (Bolus) RADIAL COCKTAIL given in lab by Anil Triplett via Radial. Using [Solution Name]. R jon: Ntg 200mcg 11:42:17 Verapamil 2.5mg A AL 2 INFINITI CATHETER FR 5 was advanced over a wire. OMNIPAQUE, 350 MG, 100ML 100ML was used for 11:43:24 injections. 11:44:05 Pressure channel 1 zeroed. Recorded Pressure: Ao, HR=81, Condition=Condition 1 11:44:53 (Aorta) Ao 94/80/88 11:47:03 HR=68 bpm, INUO=708/76 mmhg, SpO2=90 %, Resp=8 B/min After removing the current catheter a JL 4.0 INFINITI CATHETER FR 6 was advanced over a WIRE, E XCHANGE 260CM 11:51:13 3MMJ 260CM. 11:52:04 HR=63 bpm, OZEY=879/75 mmhg, SpO2=90.0 % 11:57:03 HR=63 bpm, KPPO=564/74 mmhg, SpO2=93.0 %, Resp=15 B/min, Pain=0, Jacey=10, Palmer=2 11:58:03 The LCA was injected and visualized at various angles. OMNIPAQUE, 350 MG, 100ML 100ML used . After removing the current catheter a CATHETER, FR5 OPTITORQUE ONDINA RADIAL FR 5 was advanced o piyush a WIRE, 12:00:03 EXCHANGE 260CM 3MMJ 260CM. 12:02:02 HR=71 bpm, CCJT=786/80 mmhg, SpO2=92.0 %, Resp=10 B/min, Pain=0, Jacey=10, Palmer=2 12:04:59 The RCA was injected and visualized at various angles. OMNIPAQUE, 350 MG, 100ML 100ML use d. After removing the current catheter a PIGTAIL STR. INFINITI CATHETER FR 5 was advanced over a WIRE, EXCHANGE 12:06:42 260CM 3MMJ 260CM. 12:07:03 HR=70 bpm, SCHU=043/75 mmhg, SpO2=93.0 %, Resp=10 B/min, Pain=0, Jacey=10, Palmer=2 12:08:50 The Asc. Aorta (A) was injected at 20 cc/sec for a total of 40. OMNIPAQUE, 350 MG, 50ML 50 ML used. 12:10:21 Catheter was removed 12:10:29 Case End (Physician broke scrub) Radial Compression Device Used. 11 mLs of air placed in BAND, RADIAL COMPRESSION TR LARGE 29 2 9CM. Affected 12:11:58 hand 96 % O2 saturation. 12:12:04 HR=67 bpm, PMAT=600/80 mmhg, SpO2=97.0 %, Resp=14 B/min, Pain=0, Jacey=10, Palmer=2 12:12:08 No case complications noted. 12:12:09 Cine recording checked. 12:12:11 Holding Area notified. 12:12:18 A Left Heart Cath was performed. 12:16:37 Vitals capture stopped. 12:18:18 Patient moved to stretcher End Study - Contrast Media Used In Study Contrast Total Opened (mL) Total Used (mL) Total Wasted (mL) Omnipaque 175 175 0 End Study - Maximum Contrast Load Max Contrast Load (mL) 445.1 End Study - Radiation Exposure Fluoro Time (minutes) 24.2 End Study - Patient Disposition Complications Transferred To Interventional Outcome No Telemetry Bed No attempt made
--- NOTE | 2018-04-10 12:39 | ECHRPT ---
Indication: CARDIOMYOPATHY CONCLUSIONS Severely dilated left ventricle. Mild concentric left ventricular hypertrophy. The left ventricular systolic function is severely reduced with an estimated ejection fraction in th e range of 15%. There is diffuse global hypokinesis with distinct regional wall motion abnormalities. There is a small [id number] round mobile, calcified apical left ventricular thrombus. The right ventricular systoilc function is mildly decreased. The left atrial size is mildly enlarged. dilated proximal ascending aorta 4.56 cm Mitral annular calcification is present. Trace mitral valve regurgitation. Severe tricuspid calcific aortic valve stenosis. Aortic valve area is 0.38 cm. Aortic valve mean gradient is 45 mmHg. There is trace tricuspid valve regurgitation. The estimated pulmonary arterial pressure is 29 mmHg. The inferior vena cava is mildly dilated. BP: / HR: Rhythm: MEASUREMENTS (Male / Female) Normal Values Technical Quality: 2D ECHO LV Diastolic Diameter PLAX 7.5 cm 4.2 - 5.9 / 3.9 - 5.3 cm LV Systolic Diameter PLAX 6.9 cm IVS Diastolic Thickness 1.3 cm 0.6 - 1.0 / 0.6 - 0.9 cm LVPW Diastolic Thickness 1.2 cm 0.6 - 1.0 / 0.6 - 0.9 cm LV Relative Wall Thickness 0.3 RV Internal Dim ED PLAX 2.1 cm LVOT Diameter 2.1 cm LA Systolic Diameter LX 4.3 cm 3.0 - 4.0 / 2.7 - 3.8 cm DOPPLER AV Peak Velocity 441.0 cm/s AV Peak Gradient 77.8 mmHg AV Mean Gradient 45.0 mmHg AV Velocity Time Integral 107.0 cm LVOT Peak Velocity 43.6 cm/s LVOT Peak Gradient 0.8 mmHg LVOT Velocity Time Integral 11.8 cm AV Area Cont Eq vti 0.4 cm AV Area Cont Eq pk 0.3 cm TR Peak Velocity 183.0 cm/s TR Peak Gradient 13.4 mmHg Right Atrial Pressure 15.0 mmHg Pulmonary Artery Systolic Pressu 28.4 mmHg Right Ventricular Systolic Press 28.4 mmHg FINDINGS LEFT VENTRICLE Severely dilated left ventricle. Mild concentric left ventricular hypertrophy. The left ventricular systolic function is severely reduced with an estimated ejection fraction in th e range of 15%. There is diffuse global hypokinesis with distinct regional wall motion abnormalities. There is a small [id number] round mobile, calcified apical left ventricular thrombus. RIGHT VENTRICLE The right ventricular systoilc function is mildly decreased. LEFT ATRIUM The left atrial size is mildly enlarged. RIGHT ATRIUM The right atrial size is normal. ATRIAL SEPTUM Normal atrial septal thickness without atrial level shunting by limited color doppler interrogation. AORTA dilated proximal ascending aorta 4.56 cm MITRAL VALVE Mitral annular calcification is present. Trace mitral valve regurgitation. AORTIC VALVE Severe tricuspid calcific aortic valve stenosis. Aortic valve area is 0.38 cm. Aortic valve mean gradient is 45 mmHg. TRICUSPID VALVE There is trace tricuspid valve regurgitation. The estimated pulmonary arterial pressure is 29 mmHg. PULMONARY VALVE No pulmonary valve regurgitation or stenosis. VESSELS The inferior vena cava is mildly dilated. PERICARDIUM No pericardial effusion. Anil Triplett MD (Electronically Signed) Final Date:10 April 2018 12:39
--- NOTE | 2018-04-10 12:44 | MA ---
cc: Anil Triplett MD DATE: 04/10/2018 PROCEDURES PERFORMED: Coronary angiography supravalvular aortography. PREOPERATIVE DIAGNOSIS: Critical aortic stenosis. POSTOPERATIVE DIAGNOSIS: Critical aortic stenosis. DESCRIPTION OF PROCEDURE: The patient was brought to the cardiac catheterization lab in the fasting state. The right wrist was prepped and draped in a sterile fashion. He was sedated with IV Versed and IV fentanyl. Using 1% lidocaine for local anesthesia, a Terumo slender sheath was inserted in the right radial artery without difficulty. Next, coronary angiography was performed. His coronaries were difficult to visualize due to the dilated aorta and the aortic stenosis. I successfully imaged the left coronary artery with a 6-Vietnamese left #4 Aashish catheter. I successfully administered the right coronary artery with a Chaparro catheter. I was unsuccessful with the right Aashish left 4 and a left 2 Amplatz catheters. I then switched to a pigtail catheter, obtain a supravalvular aortogram. This was then removed. Terumo band was placed. There were no complications. FINDINGS: HEMODYNAMICS: Aortic pressure was 94/80 with a mean of 88. CORONARY ANGIOGRAPHY: Coronary circulation is right dominant. The left main coronary artery appears normal. It trifurcates into the left anterior descending, circumflex, and right coronary arteries. These were all large and normal appearing. The right coronary artery was dominant, large and normal. It has a high anterior takeoff. SUPRAVALVULAR AORTOGRAM: The aortic valve can be seen to be tricuspid. There is no aortic regurgitation. The aortic root is dilated. CONCLUSIONS: 1. Normal coronary arteries. 2. Known critical aortic stenosis by echo. 3. Tricuspid aortic valve. 4. Dilated aortic root with no aortic regurgitation. Anil Triplett MD VEW/DL , 12:32 PM , 12:38 PM
[2018-04-10] MEDS ORDERED: Iohexol 350 MG/ML 100 ML Vial (for Cath Lab) IVCONTRAST ONE (13:00)
[2018-04-10] MEDS ORDERED: Dextrose 50% in Water 50 ML Vial IV.PUSH PRN (16:24)
[2018-04-10] MEDS ORDERED: Insulin Regular (For Infusion) 100 UNIT in Sodium Chlor 0.9% Inj 99 ML IV.CONT PRN (16:24)
[2018-04-10] MEDS ORDERED: Sodium Chloride 0.9% Irr Bot 500 ML, ceFAZolin Inj 500 MG IRRIGATION SCH ×2 (16:30)
[2018-04-10] MEDS ORDERED: Chlorhexidine 4% Topical 120 APPLIC/120 ML Bottle TOPICAL SCH (16:30)
--- NOTE | 2018-04-10 16:35 | P.PNCV ---
- Note Subjective/Hospital Course: pt seen and evaluated , full consult to follow sts data discussed with pt RISK SCORES About the STS Risk Calculator Procedure: AV Replacement Risk of Mortality: 2.08% Morbidity or Mortality: 21.399% Long Length of Stay: 7.824% Short Length of Stay: 32.645% Permanent Stroke: 0.463% Prolonged Ventilation: 13.281% DSW Infection: 0.382% Renal Failure: 3.79% scheduled for AVR on Saturday Objective: Vital Signs - 24 hr 04/10/18 06:16 04/10/18 06:20 04/10/18 07:50 Temperature 97.7 F Pulse Rate 81 Respiratory Rate 16 17 Blood Pressure 146/92 H Pulse Oximetry 99 97 04/10/18 12:35 Temperature Pulse Rate Respiratory Rate Blood Pressure Pulse Oximetry 96 Labs: Laboratory Results - last 12 hr 04/10/18 04/10/18 04/10/18 08:00 08:00 10:15 WBC 9.4 RBC 4.40 L Hgb 14.3 Hct 41.6 MCV 94.6 MCH 32.4 MCHC 34.2 RDW 13.8 Plt Count 267 MPV 8.1 Neut % (Auto) 82.2 H Lymph % (Auto) 9.5 [place] % (Auto) 5.9 Eos % (Auto) 1.9 Baso % (Auto) 0.5 Neut # (Auto) 7.7 Lymph # (Auto) 0.9 L [place] # (Auto) 0.6 Eos # (Auto) 0.2 Baso # (Auto) 0.0 WBC Differential . Differential Comment Auto diff final PT 11.6 INR 1.1 APTT 25.5 Sodium 140 Potassium 4.4 Chloride 107 Carbon Dioxide 26.9 Anion Gap 6 BUN 20 H Creatinine 1.29 Estimated GFR 59 L Random Glucose 102 Calcium 8.8 Total Bilirubin 1.0 AST 13 L ALT 31 Alkaline Phosphatase 57 Total Creatine Kinase 89 Troponin I 0.41 H Total Protein 6.8 Albumin 3.7 Lipase 120 Urine Color Urine Clarity Urine pH Ur Specific [place] Urine Protein Urine Glucose (UA) Urine Ketones Urine Occult Blood Urine Nitrate Urine Bilirubin Urine Urobilinogen Ur Leukocyte Esterase Micro UA Comment Urine Culture Comments 04/10/18 10:20 WBC RBC Hgb Hct MCV MCH MCHC RDW Plt Count MPV Neut % (Auto) Lymph % (Auto) [place] % (Auto) Eos % (Auto) Baso % (Auto) Neut # (Auto) Lymph # (Auto) [place] # (Auto) Eos # (Auto) Baso # (Auto) WBC Differential Differential Comment PT INR APTT Sodium Potassium Chloride Carbon Dioxide Anion Gap BUN Creatinine Estimated GFR Random Glucose Calcium Total Bilirubin AST ALT Alkaline Phosphatase Total Creatine Kinase Troponin I Total Protein Albumin Lipase Urine Color Straw Urine Clarity Clear Urine pH 5.0 Ur Specific [place] 1.006 Urine Protein Negative Urine Glucose (UA) Negative Urine Ketones Negative Urine Occult Blood Negative Urine Nitrate Negative Urine Bilirubin Negative Urine Urobilinogen Less than 2 Ur Leukocyte Esterase Negative Micro UA Comment Culture not ind Urine Culture Comments Culture not ind Result Diagrams: 04/10/18 08:00 04/10/18 08:00
[2018-04-10] MEDS ORDERED: ceFAZolin Inj 2,000 MG in Sodium Chlor 0.9% Inj 80 ML IV.SIG SCH (17:00)
[2018-04-10 17:23] LABS: Bilirubin,Urine Negative (Negative); Clarity,Urine Clear (Clear); Color,Urine Yellow (Yellw/Straw); Glucose,Urine (UA) Negative (Negative); Leukocyte Esterase,Urine Negative (Negative); Nitrite,Urine Negative (Negative)
[2018-04-10 21:01] LABS: Hematocrit 40.2 % (39.0-51.0); Hemoglobin 14.3 gm/dL (13.0-17.0); Mean Corpuscular HGB Conc 35.5 % (32.0-36.0); Mean Corpuscular Hemoglobin 32.7 pg (27.0-34.0); Mean Corpuscular Volume 92.2 fL (80.0-100.0); Mean Platelet Volume 8.3 fL (7.0-11.0); Platelet Count 263 th/mm3 (150-450); Red Blood Count 4.36 mil/mm3 (4.50-5.90); Red Cell Distribution Width 13.4 % (11.6-17.2); White Blood Count 8.7 th/mm3 (4.0-11.0)
[2018-04-10] MEDS: Mupirocin 2% Nasal Oint Topical Syringe EACH NARE SCH (21:30)
--- NOTE | 2018-04-10 21:52 | ECG ---
Date Performed: 04/10/2018 Time Performed: 07:27:44 PTAGE: 52 years EKG: Sinus rhythm WITH FIRST DEGREE AV BLOCK POSSIBLE LEFT ATRIAL ENLARGEMENT LEFT VENTRICULAR HYPERTROPHY AND ST-T CH MAKSIM ABNORMAL ECG PREVIOUS TRACING : 02/17/2010 21.18 Compared to previous tracing, LVH and ST-T changes present DOCTOR: Devora Zendejas Interpretating Date/Time 04/10/2018 21:51:03
[2018-04-11 02:56] LABS: Baso % (Auto) 0.7 % (0.0-2.0); Eos # (Auto) 0.4 th/mm3 (0.0-0.4); Eos % (Auto) 5.3 % (0.0-4.0); Hematocrit 39.7 % (39.0-51.0); Hemoglobin 13.6 gm/dL (13.0-17.0); Lymph # (Auto) 1.6 th/mm3 (1.0-4.8); Lymph % (Auto) 22.2 % (9.0-44.0); Mean Corpuscular HGB Conc 34.3 % (32.0-36.0); Mean Corpuscular Hemoglobin 31.9 pg (27.0-34.0); Mono # (Auto) 0.6 th/mm3 (0.0-0.9); Mono % (Auto) 8.8 % (0.0-8.0); Neut # (Auto) 4.4 th/mm3 (1.8-7.7); Platelet Count 248 th/mm3 (150-450); Red Blood Count 4.27 mil/mm3 (4.50-5.90); Red Cell Distribution Width 13.5 % (11.6-17.2)
[2018-04-11 03:17] LABS: Calcium 8.6 mg/dL (8.5-10.1); Carbon Dioxide 26.3 meq/L (21.0-32.0); Potassium 4.2 meq/L (3.5-5.1)
--- NOTE | 2018-04-11 06:57 | P.PNFP ---
Subjective Interval history: Attending note: Pleasant 52-year-old gentleman admitted with an exertional epigastric discomfort and at the time of presentation the patient was aware of his heart "skipping all over the place ". Patient was taken to the [facility] by Dr. Anil Triplett, coronary arteries appeared patent however there was severe aortic valve disease with stenosis. Retro-respectively the patient has been symptomatic with increasing fatigue with exertion and recently while working when up 2 flights of stairs finding that he really was becoming more dyspneic. The epigastric pain would also come on with exertion and be relieved with rest. States his general health has been good, only minor surgery for a skin lesion in the past. Currently comfortable. Please refer to the resident H&P for complete discussion of past medical history, family history and social history, review of systems. Results - Labs Result diagrams: 04/11/18 02:43 04/11/18 02:43 Abnormal lab results 04/10/18 04/10/18 04/10/18 Range/Units 08:00 08:00 14:00 RBC 4.40 L (4.50-5.90) mil/mm3 Neut % (Auto) 82.2 H (16.0-70.0) % [place] % (Auto) (0.0-8.0) % Eos % (Auto) (0.0-4.0) % Lymph # (Auto) 0.9 L (1.0-4.8) th/mm3 Chloride (98-107) meq/L BUN 20 H (7-18) mg/dL Estimated GFR 59 L (>89) mL/min AST 13 L (15-37) U/L Troponin I 0.41 H (0.02-0.05) ng/mL Ur Specific [place] 1.060 H (1.002-1.035) 04/10/18 04/10/18 04/11/18 Range/Units 19:58 19:58 02:43 RBC 4.36 L (4.50-5.90) mil/mm3 Neut % (Auto) (16.0-70.0) % [place] % (Auto) (0.0-8.0) % Eos % (Auto) (0.0-4.0) % Lymph # (Auto) (1.0-4.8) th/mm3 Chloride (98-107) meq/L BUN (7-18) mg/dL Estimated GFR (>89) mL/min AST (15-37) U/L Troponin I 0.43 H 0.61 H* (0.02-0.05) ng/mL Ur Specific [place] (1.002-1.035) 04/11/18 04/11/18 Range/Units 02:43 02:43 RBC 4.27 L (4.50-5.90) mil/mm3 Neut % (Auto) (16.0-70.0) % [place] % (Auto) 8.8 H (0.0-8.0) % Eos % (Auto) 5.3 H (0.0-4.0) % Lymph # (Auto) (1.0-4.8) th/mm3 Chloride 109 H (98-107) meq/L BUN (7-18) mg/dL Estimated GFR 65 L (>89) mL/min AST (15-37) U/L Troponin I (0.02-0.05) ng/mL Ur Specific [place] (1.002-1.035) Short CBC 04/10/18 04/10/18 04/11/18 Range/Units 08:00 19:58 02:43 WBC 9.4 8.7 7.0 (4.0-11.0) th/mm3 Hgb 14.3 14.3 13.6 (13.0-17.0) gm/dL Hct 41.6 40.2 39.7 (39.0-51.0) % Plt Count 267 263 248 (150-450) th/mm3 BMP 04/10/18 04/11/18 08:00 02:43 Sodium 140 142 Potassium 4.4 4.2 Chloride 107 109 H Carbon Dioxide 26.9 26.3 BUN 20 H 17 Creatinine 1.29 1.18 Calcium 8.8 8.6 Cardiac Enzymes 04/10/18 04/10/18 04/11/18 Range/Units 08:00 19:58 02:43 Total Creatine Kinase 89 (39-308) U/L Troponin I 0.41 H 0.43 H 0.61 H* (0.02-0.05) ng/mL Liver Function 04/10/18 Range/Units 08:00 Total Bilirubin 1.0 (0.2-1.0) mg/dL AST 13 L (15-37) U/L ALT 31 (12-78) U/L Alkaline Phosphatase 57 (45-117) U/L Albumin 3.7 (3.4-5.0) g/dL Urine 04/10/18 04/10/18 Range/Units 10:20 14:00 Urine Color Straw Yellow (Yellw/Straw) Urine Clarity Clear Clear (Clear) Urine pH 5.0 5.0 (5.0-8.5) Ur Specific [place] 1.006 1.060 H (1.002-1.035) Urine Protein Negative Negative (Neg-Trace) mg/dL Urine Glucose (UA) Negative Negative (Negative) mg/dL - Imaging Impressions Chest X-Ray 04/10/18 07:36 CONCLUSION: Moderate enlargement of the cardiac silhouette could be cardiomyopathy or pericardial effusion. Physical Exam Vital signs: Vital Signs 04/10/18 07:50 04/10/18 10:10 04/10/18 12:35 Temperature Pulse Rate Respiratory Rate Blood Pressure Pulse Oximetry 97 97 96 04/10/18 17:00 04/10/18 17:01 04/10/18 18:00 Temperature 97.8 F Pulse Rate 70 75 68 Respiratory Rate 16 Blood Pressure 116/83 Pulse Oximetry 97 04/10/18 19:00 04/10/18 20:00 04/10/18 21:00 Temperature 98.4 F Pulse Rate 73 72 66 Respiratory Rate 18 Blood Pressure 113/78 Pulse Oximetry 97 97 04/10/18 22:00 04/10/18 23:00 04/11/18 00:00 Temperature 98.7 F Pulse Rate 68 96 H 54 L Respiratory Rate 20 Blood Pressure 106/79 Pulse Oximetry 99 04/11/18 01:00 04/11/18 02:00 04/11/18 02:15 Temperature Pulse Rate 56 L 54 L Respiratory Rate Blood Pressure Pulse Oximetry 97 04/11/18 03:00 04/11/18 04:00 04/11/18 05:00 Temperature 97.9 F Pulse Rate 78 78 58 L Respiratory Rate 20 Blood Pressure 113/79 Pulse Oximetry 99 04/11/18 06:00 Temperature Pulse Rate 62 Respiratory Rate Blood Pressure Pulse Oximetry Intake & Output 04/10/18 04/10/18 04/11/18 06:59 18:59 06:59 Intake Total 495 / 495 Output Total 300 / 300 Balance 195 / 195 Weight 106.594 kg 108.5 kg Intake: IV 15 / 15 Heparin/NS PF Inj 1,000 ML @ 0 15 / 15 mls/hr .ROUTE .[employer] [facility] Rx#: [id number] Oral 480 / 480 Output: Urine 300 / 300 Other: Date of Last Bowel Movement 04/10/18 04/10/18 Narrative: Vital signs noted, normotensive. General appearance: Middle-aged gentleman who is alert oriented and pleasant conversation resting comfortably. HEENT: Nonlocalizing. Lungs: Clear to auscultation, possibly minuscule rales at the base. Cardiac: Systolic murmur over the aortic area, unable at this time to appreciate any diastolic murmurs. Regular rhythm. No S3. Abdomen: Soft, no organomegaly, tenderness, masses. Extremities: Calves are supple, feet are warm and dry. Labs reviewed. Last troponin 0 0.61. EKG LVH/strain. Assessment and Plan - Assessment (1) Non-STEMI (non-ST elevated myocardial infarction) Code(s): I21.4 - Non-ST elevation (NSTEMI) myocardial infarction Status: Acute Plan: Patient presenting with NSTEMI, initial troponins 0.41. ER physician who reports he had spoken with Dr. Triplett who recommended aspirin, beta-joselyn, will likely take to catheterization later today. No heparin drip at this time. Currently without chest pain. -Serial troponins -Serial EKGs -Aspirin, Metoprolol administered -Follow-up cardiology recommendations -Follow-up stat echocardiogram (2) Aortic regurgitation Code(s): I35.1 - Nonrheumatic aortic (valve) insufficiency Status: Acute Plan: History of aortic regurgitation -Follow-up echocardiogram (3) Nutrition, metabolism, and development symptoms Code(s): R63.8 - Other symptoms and signs concerning food and fluid intake Status: Acute Plan: Fluids: Tolerating p.o. Electrolytes: Monitor and replete as needed Nutrition: Regular diet following cath - Assessment and Plan Clinical assessment: 52-year-old gentleman with progressive aortic stenosis becoming quite symptomatic. Markedly diminished ejection fraction. Cardiovascular surgery is planned for 04/14/2018. Medical team will follow as appropriate. Case discussed with resident medical team and agree with plans as ordered by resident medical team. Rick Toscano MD. (2) Aortic regurgitation Qualifiers: Cardiac valve disease etiology: etiology unspecified Qualified Code(s): I35.1 - Nonrheumatic aortic (valve) insufficiency
[2018-04-11] MEDS: Senna/Docusate Sodium 8.6/50 MG Tablet PO SCH ×3 (07:20→21:46)
--- NOTE | 2018-04-11 07:32 | MB ---
cc: Mirian Hernandez MD DATE: 04/10/2018 HISTORY OF PRESENT ILLNESS: This 52-year-old male presented to the emergency room with shortness of breath without exertion for the last month. No syncope or chest pain, but the breathing has become worse over the past week. He has not seen a physician since 2008. He was seen in the past for fatigue and worked up for presyncope in 2005, was seen at that time by Dr. Calderon, was found to have some heart murmur, had an echo, was told he had some aortic valve involvement. The patient presented with a troponin of 0.41. However, the heart catheterization showed no evidence of coronary disease, possibly elevated due to critical aortic stenosis. He underwent also an echocardiogram which showed a valve area of 0.38, with some trace tricuspid valve regurgitation, trace mitral valve regurgitation, pulmonary artery pressures of 29 mmHg, ejection fraction of 15%, diffuse global AP hypokinesis. There was also a small 12 x 14 mm, round mobile calcified apical left ventricular thrombus. We were consulted for aortic valve replacement. PAST MEDICAL HISTORY: Includes aortic valve disease. PAST SURGICAL HISTORY: He has had some right ulnar nerve surgery. He had a tumor removed, which was benign. ALLERGIES: INCLUDE TREE AND SHRUB POLLEN, POISON OAK EXTRACT. HOME MEDICATIONS: Include multivitamin, L-carnitine, baby aspirin. FAMILY HISTORY: Father had a history of aortic valve replacement, but apparently from suicide. Mother is alive, relatively healthy, has history of COPD. SOCIAL HISTORY: The patient is . No children. 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 No tobacco use. No illicit drugs. He does drink beer heavily on the weekends. He also admits to working out 5 days a week at the gym and he admits to using steroids, injecting and orally, in the late . REVIEW OF SYSTEMS: GENERAL: No night sweats, fever, heat and cold intolerance. SKIN: No psoriasis, itching or hives. HEENT: No blurred vision, hearing loss. RESPIRATORY: Positive for shortness of breath, paroxysmal nocturnal dyspnea. CARDIOVASCULAR: As above in the HPI. GASTROINTESTINAL: He has had some recent abdominal discomfort. No nausea or vomiting. GENITOURINARY: No burning, frequency, urgency. CENTRAL NERVOUS SYSTEM: No history of TIA, CVA or seizure disorder. ENDOCRINOLOGY: No history of diabetes and no hypothyroidism. PHYSICAL EXAMINATION: VITAL SIGNS: Blood pressure 146/90, heart rate of 80, temperature max 97.7, O2 saturation 97% on room air. GENERAL: The patient is awake, alert, in no acute distress. HEENT: Head is normocephalic, atraumatic. Pupils equal and reactive. Oral mucosa pink, moist. NECK: Supple. No JVD. HEART: Sounds S1, S2. Grade 3/6 systolic murmur best heard on the left sternal border. LUNGS: Clear to auscultation. No wheezes, rales or rhonchi. ABDOMEN: Soft, nontender. No masses or organomegaly. EXTREMITIES: No cyanosis, clubbing or edema. LABORATORY DATA: Shows hemoglobin of 14, hematocrit of 41, white cell count of 9, platelet count of 267. Sodium 140, potassium 4.4, BUN of 20, creatinine 1.29, AST 13, ALT 31. INR 1.1. Urinalysis is unremarkable. STUDY: EKG shows sinus rhythm with left ventricular hypertrophy. Echo again showing severe critical aortic stenosis with a valve area of 0.38. The aortic root is dilated to 4.6 cm. There is also again a small left apical ventricular thrombus. IMPRESSION AND PLAN: This is again a 52-year-old male with a significant cardiomyopathy, with an ejection fraction of 15%, severe aortic stenosis, mildly elevated troponin secondary to the severe aortic stenosis. No evidence of coronary artery disease as per the heart catheterization. Procedures, alternatives and risks have been discussed with the patient. Risk of mortality is 2.8. Planning, at this time, will be for aortic valve replacement. The patient wants to decide over the weekend whether he wants to go with a mechanical versus a tissue valve. Further planning as per Dr. Mirian Hernandez. Dictated by CELIO Acevedo MD [facility]/JERE , 04:43 PM , 04:53 PM
--- NOTE | 2018-04-11 08:11 | P.PNCA ---
Subjective Interval history: No complaints. No angina, SOB Physical Exam Vital signs: Vital Signs 04/10/18 10:10 04/10/18 12:35 04/10/18 17:00 Temperature Pulse Rate 70 Respiratory Rate Blood Pressure Pulse Oximetry 97 96 04/10/18 17:01 04/10/18 18:00 04/10/18 19:00 Temperature 97.8 F 98.4 F Pulse Rate 75 68 73 Respiratory Rate 16 18 Blood Pressure 116/83 113/78 Pulse Oximetry 97 97 04/10/18 20:00 04/10/18 21:00 04/10/18 22:00 Temperature Pulse Rate 72 66 68 Respiratory Rate Blood Pressure Pulse Oximetry 97 04/10/18 23:00 04/11/18 00:00 04/11/18 01:00 Temperature 98.7 F Pulse Rate 96 H 54 L 56 L Respiratory Rate 20 Blood Pressure 106/79 Pulse Oximetry 99 04/11/18 02:00 04/11/18 02:15 04/11/18 03:00 Temperature 97.9 F Pulse Rate 54 L 78 Respiratory Rate 20 Blood Pressure 113/79 Pulse Oximetry 97 99 04/11/18 04:00 04/11/18 05:00 04/11/18 06:00 Temperature Pulse Rate 78 58 L 62 Respiratory Rate Blood Pressure Pulse Oximetry 04/11/18 07:00 04/11/18 07:27 Temperature 97.4 F L Pulse Rate 74 61 Respiratory Rate 16 Blood Pressure 122/87 Pulse Oximetry 98 Intake & Output 04/10/18 04/11/18 04/11/18 18:59 06:59 18:59 Intake Total 495 / 495 240 / 240 Output Total 300 / 300 Balance 195 / 195 240 / 240 Weight 108.5 kg Intake: IV 15 / 15 Heparin/NS PF Inj 1,000 ML @ 0 15 / 15 mls/hr .ROUTE .[facility] Rx#: [id number] Oral 480 / 480 240 / 240 Output: Urine 300 / 300 Other: # Voids 3 Date of Last Bowel Movement 04/10/18 04/10/18 04/11/18 Narrative: Obese Alert in NAD Chest clear CV S1S2 RRR with murmur Abd soft Ext no C/C/E. Right wrist OK Assessment and Plan - Assessment (1) Elevated troponin Code(s): R74.8 - Abnormal levels of other serum enzymes Status: Acute Plan: secondary to cardiomyoapthy, not AMI (2) Critical aortic valve stenosis Code(s): I35.0 - Nonrheumatic aortic (valve) stenosis Status: Acute Plan: AVR needed (3) Normal coronary arteries Code(s): Z03.89 - Encounter for observation for other suspected diseases and conditions ruled out Status: Acute (4) Left ventricular apical thrombus Status: Acute Plan: will need anticoagulation post-op. It looks calcified and old (5) Dilated cardiomyopathy Code(s): I42.0 - Dilated cardiomyopathy Status: Acute Plan: Likely secondary to (6) Angina of effort Code(s): I20.8 - Other forms of angina pectoris Status: Acute Plan: secondary to - Plan Dr. Salazar missile control pilot and will see prn. Please call if questions or CV problems over the weekend.
[2018-04-11] MEDS: Mupirocin 2% Nasal Oint Topical Syringe EACH NARE SCH ×2 (09:15→21:45)
[2018-04-11] MEDS: Sod Chloride 0.9% Inj 1,000 ML IV.CONT SCH ×2 (09:16→21:45)
--- NOTE | 2018-04-11 10:06 | US ---
EXAM DATE: 04/11/2018 9:52 AM EDT AGE/SEX: 52 years / Male INDICATIONS: Pre-op for aortic valve replacement. CLINICAL DATA: This is the patient's initial encounter. Patient reports that signs and symptoms have been present for 1 day and indicates a pain score of 0/10. MEDICAL/SURGICAL HISTORY: . Aortic valve regurgitation. Palpitations. . COMPARISON: No prior exams available for comparison. VELOCITY PARAMETERS: ICA/CCA Ratio: Right 0.8 , Left 0.7 ICA: Right 46 cm/sec, Left 54 cm/sec CCA: Right 61 cm/sec, Left 76 cm/sec ECA: Right 53 cm/sec, Left 54 cm/sec Vertebral: Right 26 cm/sec antegrade, Left 27 cm/sec antegrade FINDINGS: Right Carotid: No significant plaque is visualized.The waveforms are within normal limits. Left Carotid: No significant plaque is visualized. The waveforms are within normal limits. Other: None. CONCLUSION: 1. Right Internal Carotid Artery: No significant stenosis or atherosclerotic plaque is visualized. 2. Left Internal Carotid Artery: No significant stenosis or atherosclerotic plaque is visualized. 3. Antegrade flow both vertebral arteries. Electronically signed by: Juwan Salgado MD 04/11/2018 10:04 AM EDT
--- NOTE | 2018-04-11 13:26 | P.PNCV ---
- Note Subjective/Hospital Course: 04/11 The ECHO and angiographic findings were discussed in detail with the patient and his family. The option of mechanical versus tissue valve was discussed in detail as well as the advantages and disadvantages of both types of valves. He understands the provided information and wishes to opt for the tissue valve to avoid life-long anticoagulation therapy. The risks, complications including but not limited to bleeding, infection, stroke, myocardial injury and , and benefits of the surgical procedure were discussed in details and all questions answered. He understands the provided information and agrees to proceed with the planned operation. We will plan on proceeding with the surgical procedure as describe above on Saturday. Thank you for allowing me to participate in the care of this patient. Objective: Vital Signs - 24 hr 04/10/18 17:00 04/10/18 17:01 04/10/18 18:00 Temperature 97.8 F Pulse Rate 70 75 68 Respiratory Rate 16 Blood Pressure 116/83 Pulse Oximetry 97 Result Diagrams: 04/11/18 02:43 04/11/18 02:43
--- NOTE | 2018-04-11 14:35 | ECG ---
Date Performed: 04/10/2018 Time Performed: 21:14:32 PTAGE: 52 years EKG: Sinus rhythm with 1st degree A-V block Prolonged QT interval Leftward axis LVH with secondary repolarization abno rmality Extensive ST-T changes may be due to hypertrophy and/or ischemia Abnormal ECG Since the PREVIOUS TRACING , no significant change noted PREVIOUS TRACIN04/10/2018 07.27 DOCTOR: Lj Peterson Interpretating Date/Time 04/11/2018 14:32:39
[2018-04-12 04:27] LABS: Hemoglobin 13.8 gm/dL (13.0-17.0); Mean Corpuscular HGB Conc 34.5 % (32.0-36.0); Mean Corpuscular Hemoglobin 32.1 pg (27.0-34.0); Mean Platelet Volume 8.3 fL (7.0-11.0); Platelet Count 238 th/mm3 (150-450); Red Blood Count 4.31 mil/mm3 (4.50-5.90); Red Cell Distribution Width 13.9 % (11.6-17.2); White Blood Count 7.9 th/mm3 (4.0-11.0)
[2018-04-12] MEDS: Sod Chloride 0.9% Inj 1,000 ML IV.CONT SCH ×2 (07:10→14:28)
[2018-04-12] MEDS: Senna/Docusate Sodium 8.6/50 MG Tablet PO SCH ×2 (09:22→20:43)
[2018-04-12] MEDS: Mupirocin 2% Nasal Oint Topical Syringe EACH NARE SCH ×2 (09:22→20:43)
--- NOTE | 2018-04-12 10:09 | P.PNFP ---
Subjective Interval history: Patient seen and examined today. No acute events overnight. Denies nausea, vomiting, fever, chills, abdominal pain, chest pain, shortness of breath, left arm or jaw pain, lightheadedness, dizziness, sweating. No other complaints at this time. Results - Labs Result diagrams: 04/12/18 03:38 04/11/18 02:43 Abnormal lab results 04/12/18 Range/Units 03:38 RBC 4.31 L (4.50-5.90) mil/mm3 Short CBC 04/12/18 Range/Units 03:38 WBC 7.9 (4.0-11.0) th/mm3 Hgb 13.8 (13.0-17.0) gm/dL Hct 40.0 (39.0-51.0) % Plt Count 238 (150-450) th/mm3 - Imaging Impressions Carotid Doppler Study 04/11/18 16:24 CONCLUSION: 1. Right Internal Carotid Artery: No significant stenosis or atherosclerotic plaque is visualized. 2. Left Internal Carotid Artery: No significant stenosis or atherosclerotic plaque is visualized. 3. Antegrade flow both vertebral arteries. Physical Exam Vital signs: Vital Signs 04/11/18 11:00 04/11/18 12:00 04/11/18 13:00 Temperature 97.8 F Pulse Rate 70 74 76 Respiratory Rate 16 Blood Pressure 121/81 Pulse Oximetry 99 04/11/18 14:00 04/11/18 15:21 04/11/18 15:23 Temperature 97.8 F Pulse Rate 68 70 70 Respiratory Rate 16 Blood Pressure 123/83 Pulse Oximetry 97 04/11/18 16:14 04/11/18 17:00 04/11/18 18:00 Temperature Pulse Rate 69 76 78 Respiratory Rate Blood Pressure Pulse Oximetry 04/11/18 19:00 04/11/18 20:00 04/11/18 21:00 Temperature 98.7 F Pulse Rate 69 72 66 Respiratory Rate 22 Blood Pressure 115/75 Pulse Oximetry 99 99 04/11/18 22:00 04/11/18 23:00 04/12/18 00:00 Temperature Pulse Rate 64 58 L 54 L Respiratory Rate 18 Blood Pressure Pulse Oximetry 04/12/18 01:00 04/12/18 02:00 04/12/18 03:00 Temperature 97.9 F Pulse Rate 69 59 L 66 Respiratory Rate 18 Blood Pressure 107/66 Pulse Oximetry 96 04/12/18 04:00 04/12/18 05:00 04/12/18 06:00 Temperature Pulse Rate 60 70 69 Respiratory Rate Blood Pressure Pulse Oximetry 04/12/18 07:00 Temperature 98.0 F Pulse Rate 75 Respiratory Rate 20 Blood Pressure 107/77 Pulse Oximetry 94 L Intake & Output 04/11/18 04/12/18 04/12/18 18:59 06:59 18:59 Intake Total 1939 1200 / 1200 Output Total 1999 900 / 900 Balance -60 / -60 300 / 300 Weight 106 kg Intake: Oral 1939 1200 / 1200 Output: Urine 1999 900 / 900 Other: Date of Last Bowel Movement 04/11/18 04/11/18 04/11/18 Narrative: GENERAL: Sitting in chair, no acute distress SKIN: Warm and dry. HEAD: Atraumatic. Normocephalic. EYES: Pupils equal and round. No scleral icterus. No injection or drainage. ENT: No nasal bleeding or discharge. Mucous membranes pink and moist. NECK: Trachea midline. No JVD. CARDIOVASCULAR: Regular rate and rhythm. Significant systolic murmur at right sternal border RESPIRATORY: No accessory muscle use. Clear to auscultation. Breath sounds equal bilaterally. GASTROINTESTINAL: Abdomen soft, non-tender, nondistended. Hepatic and splenic margins not palpable. MUSCULOSKELETAL: Extremities without clubbing, cyanosis, or edema. No obvious deformities. NEUROLOGICAL: Awake and alert. No obvious cranial nerve deficits. Motor grossly within normal limits. Five out of 5 muscle strength in the arms and legs. Normal speech. PSYCHIATRIC: Appropriate mood and affect; insight and judgment normal. Assessment and Plan - Assessment (1) Severe aortic stenosis Code(s): I35.0 - Nonrheumatic aortic (valve) stenosis Status: Acute Plan: Echocardiogram showing significant severe aortic stenosis as noted below. Cardiothoracic surgery on . -Plan for AVR on Saturday Echocardiogram conclusions: Severely dilated left ventricle. Mild concentric left ventricular hypertrophy. The left ventricular systolic function is severely reduced with an estimated ejection fraction in the range of 15%. There is diffuse global hypokinesis with distinct regional wall motion abnormalities. There is a small [id number] round mobile, calcified apical left ventricular thrombus. The right ventricular systoilc function is mildly decreased. The left atrial size is mildly enlarged. dilated proximal ascending aorta 4.56 cm Mitral annular calcification is present. Trace mitral valve regurgitation. Severe tricuspid calcific aortic valve stenosis. Aortic valve area is 0.38 cm. Aortic valve mean gradient is 45 mmHg. There is trace tricuspid valve regurgitation. The estimated pulmonary arterial pressure is 29 mmHg. The inferior vena cava is mildly dilated. (2) Non-STEMI (non-ST elevated myocardial infarction) Code(s): I21.4 - Non-ST elevation (NSTEMI) myocardial infarction Status: Acute Plan: Patient presenting with suspected NSTEMI, initial troponins 0.41. Currently without chest pain. Cardiac catheterization without significant pathology. Echocardiogram shows significant aortic stenosis requiring AVR. -See plan for severe aortic stenosis (3) Aortic regurgitation Code(s): I35.1 - Nonrheumatic aortic (valve) insufficiency Status: Acute Plan: History of aortic regurgitation, to have AVR (4) Nutrition, metabolism, and development symptoms Code(s): R63.8 - Other symptoms and signs concerning food and fluid intake Status: Acute Plan: Fluids: Tolerating p.o. Electrolytes: Monitor and replete as needed Nutrition: Regular diet (3) Aortic regurgitation Qualifiers: Cardiac valve disease etiology: etiology unspecified Qualified Code(s): I35.1 - Nonrheumatic aortic (valve) insufficiency
[2018-04-13] MEDS: Sod Chloride 0.9% Inj 1,000 ML IV.CONT SCH ×3 (03:38→21:36)
[2018-04-13 04:20] LABS: INR 1.1 Ratio; Prothrombin Time 11.4 sec (9.8-11.6)
[2018-04-13] MEDS: Senna/Docusate Sodium 8.6/50 MG Tablet PO SCH ×2 (08:29→20:26)
[2018-04-13] MEDS: Mupirocin 2% Nasal Oint Topical Syringe EACH NARE SCH ×2 (08:29→20:26)
--- NOTE | 2018-04-13 10:45 | P.PNFP ---
Subjective Interval history: Attending note: Patient seen with resident, out of bed in chair eating breakfast , has absolutely no physical complaints, anticipate surgery on 04/14/2018. Results - Labs Result diagrams: 04/12/18 03:38 04/11/18 02:43 Abnormal lab results 04/13/18 Range/Units 00:53 MTS Gel Crossmatch See Detail Physical Exam Vital signs: Vital Signs 04/12/18 11:00 04/12/18 12:00 04/12/18 13:00 Temperature 98.6 F Pulse Rate 64 70 84 Respiratory Rate 20 Blood Pressure 102/69 Pulse Oximetry 98 04/12/18 14:00 04/12/18 14:30 04/12/18 15:00 Temperature 97.9 F Pulse Rate 65 68 74 Respiratory Rate 20 Blood Pressure 105/72 Pulse Oximetry 96 04/12/18 16:00 04/12/18 17:00 04/12/18 19:00 Temperature 97.8 F Pulse Rate 73 75 64 Respiratory Rate Blood Pressure 110/77 Pulse Oximetry 98 04/12/18 20:00 04/12/18 21:00 04/12/18 22:00 Temperature Pulse Rate 66 66 62 Respiratory Rate Blood Pressure Pulse Oximetry 04/12/18 23:00 04/13/18 00:00 04/13/18 01:00 Temperature Pulse Rate 68 61 58 L Respiratory Rate 18 Blood Pressure Pulse Oximetry 04/13/18 02:00 04/13/18 03:00 04/13/18 04:00 Temperature 98 F Pulse Rate 62 70 70 Respiratory Rate Blood Pressure 106/69 Pulse Oximetry 97 04/13/18 05:00 04/13/18 06:00 04/13/18 07:00 Temperature 98.2 F Pulse Rate 63 65 78 Respiratory Rate 20 Blood Pressure 106/68 Pulse Oximetry 99 04/13/18 08:00 04/13/18 09:00 04/13/18 10:00 Temperature Pulse Rate 65 90 74 Respiratory Rate Blood Pressure Pulse Oximetry Intake & Output 04/12/18 04/13/18 04/13/18 18:59 06:59 18:59 Intake Total 1440 / 1440 480 / 480 Output Total 1600 / 1600 1550 / 1550 Balance -160 / -160 -1070 / -1070 Weight 105.5 kg Intake: Oral 1440 / 1440 480 / 480 Output: Urine 1600 / 1600 1550 / 1550 Other: Date of Last Bowel Movement 04/11/18 04/11/18 04/11/18 # Bowel Movements 0 Narrative: Vital signs noted. General appearance Very healthy middle-aged gentleman who appears quite comfortable. HEENT: Nonlocalizing. Lungs: Clear to auscultation. Cardiac: Systolic murmur over the aortic area, no irregularities, no S3. Assessment and Plan - Assessment (1) Severe aortic stenosis Code(s): I35.0 - Nonrheumatic aortic (valve) stenosis Status: Acute Plan: Echocardiogram showing significant severe aortic stenosis as noted below. Cardiothoracic surgery on . -Plan for AVR on Saturday Echocardiogram conclusions: Severely dilated left ventricle. Mild concentric left ventricular hypertrophy. The left ventricular systolic function is severely reduced with an estimated ejection fraction in the range of 15%. There is diffuse global hypokinesis with distinct regional wall motion abnormalities. There is a small [id number] round mobile, calcified apical left ventricular thrombus. The right ventricular systoilc function is mildly decreased. The left atrial size is mildly enlarged. dilated proximal ascending aorta 4.56 cm Mitral annular calcification is present. Trace mitral valve regurgitation. Severe tricuspid calcific aortic valve stenosis. Aortic valve area is 0.38 cm. Aortic valve mean gradient is 45 mmHg. There is trace tricuspid valve regurgitation. The estimated pulmonary arterial pressure is 29 mmHg. The inferior vena cava is mildly dilated. (2) Non-STEMI (non-ST elevated myocardial infarction) Code(s): I21.4 - Non-ST elevation (NSTEMI) myocardial infarction Status: Acute Plan: Patient presenting with suspected NSTEMI, initial troponins 0.41. Currently without chest pain. Cardiac catheterization without significant pathology. Echocardiogram shows significant aortic stenosis requiring AVR. -See plan for severe aortic stenosis (3) Aortic regurgitation Code(s): I35.1 - Nonrheumatic aortic (valve) insufficiency Status: Acute Plan: History of aortic regurgitation, to have AVR (4) Nutrition, metabolism, and development symptoms Code(s): R63.8 - Other symptoms and signs concerning food and fluid intake Status: Acute Plan: Fluids: Tolerating p.o. Electrolytes: Monitor and replete as needed Nutrition: Regular diet - Assessment and Plan Clinical assessment: 52-year-old gentleman with progressive aortic stenosis becoming quite symptomatic. Markedly diminished ejection fraction. Cardiovascular surgery is planned for 04/14/2018. Medical team will follow as appropriate. Case discussed with resident medical team and agree with plans as ordered by resident medical team. Rick Toscano MD. Clinical assessment 04/13/2010: Clinically stable for cardiac surgery, will transfer to cardiovascular services and be available on an as-needed basis for medical concerns. Rick Toscano MD (3) Aortic regurgitation Qualifiers: Cardiac valve disease etiology: etiology unspecified Qualified Code(s): I35.1 - Nonrheumatic aortic (valve) insufficiency
[2018-04-13 12:58] LABS: Hemoglobin A1c 5.9 % (4.3-6.0)
[2018-04-13] MEDS ORDERED: Chlorhexidine Gluconate 2% 1 Pack (2 Cloths) TOPICAL SCH (22:45)
[2018-04-13] MEDS ORDERED: Sodium Chlor 0.9% Inj 500 ML IV.SIG SCH (23:00)
[2018-04-14 03:33] LABS: Hematocrit 40.7 % (39.0-51.0); Hemoglobin 13.9 gm/dL (13.0-17.0); Mean Corpuscular HGB Conc 34.1 % (32.0-36.0); Mean Corpuscular Hemoglobin 32.2 pg (27.0-34.0); Mean Corpuscular Volume 94.4 fL (80.0-100.0); Mean Platelet Volume 8.3 fL (7.0-11.0); Platelet Count 231 th/mm3 (150-450); Red Blood Count 4.32 mil/mm3 (4.50-5.90); Red Cell Distribution Width 13.9 % (11.6-17.2); White Blood Count 6.4 th/mm3 (4.0-11.0)
[2018-04-14 03:42] LABS: Calcium 8.7 mg/dL (8.5-10.1); Carbon Dioxide 27.3 meq/L (21.0-32.0); Potassium 4.2 meq/L (3.5-5.1)
[2018-04-14] MEDS: Metoprolol Tartrate 25 MG Tablet PO SCH (05:24)
[2018-04-14] MEDS ORDERED: Heparin - SQ 10,000 UNITS/ML Vial ONE (06:49)
[2018-04-14] MEDS ORDERED: ceFAZolin 2 GM Premix Inj 2 GM/50 ML PIGGYBACK IV.SIG ONE (06:49)
[2018-04-14] MEDS ORDERED: CUST1000P IRRIGATION ONE (07:29)
[2018-04-14] MEDS ORDERED: Heparin 10,000 UNITS/10 ML Vial (for IV use) ONE ×2 (07:29→15:12)
[2018-04-14] MEDS ORDERED: Calcium Chloride Inj 1 GM/10 ML Syringe ONE (07:30)
[2018-04-14] MEDS ORDERED: Potassium Chlor 40 mEq Premix 40 MEQ/100 ML PIGGYBACK ONE (07:31)
[2018-04-14] MEDS ORDERED: Albumin Human 25% Inj 50 ML IV.SIG ONE (07:32)
[2018-04-14] MEDS: Sod Chloride 0.9% Inj 1,000 ML IV.CONT SCH ×2 (10:05→18:36)
[2018-04-14] MEDS: Senna/Docusate Sodium 8.6/50 MG Tablet PO SCH ×2 (11:53→20:31)
[2018-04-14] MEDS: Mupirocin 2% Nasal Oint Topical Syringe EACH NARE SCH (11:53)
[2018-04-14] MEDS ORDERED: Dexmedetomidine Inj 200 MCG/2 ML Vial IV.CONT ONE (12:00)
[2018-04-14] MEDS ORDERED: Heparin - SQ 10,000 UNITS/ML Vial OTHER ONE (12:00)
[2018-04-14] MEDS ORDERED: Protamine Sulfate Inj 250 MG/25 ML Vial IV.CONT ONE (12:00)
[2018-04-14] MEDS ORDERED: Dextrose 5% in Water Inj 100 ML IV.SIG ONE (12:00)
[2018-04-14] MEDS ORDERED: Phenylephrine/NS 1000 MCG/10ML Syringe IV.PUSH ONE (12:00)
[2018-04-14] MEDS ORDERED: Post-op Orders (for Pharmacy) OTHER STA (12:23)
[2018-04-14] MEDS ORDERED: Calcium Chloride Inj 1 GM/10 ML Syringe IV.PUSH PRN (12:23)
[2018-04-14] MEDS ORDERED: Dextrose 50% in Water 50 ML Vial IV.PUSH PRN (12:23)
[2018-04-14] MEDS ORDERED: Acetaminophen 650 MG Supp RECTAL PRN (12:23)
[2018-04-14] MEDS ORDERED: RESP: Racemic Epinephrine 2.25% 0.5 ML Neb NEB SCH (12:23)
[2018-04-14] MEDS ORDERED: fentaNYL Citrate Inj 100 MCG/2 ML Ampul IV.PUSH PRN (12:23)
[2018-04-14] MEDS ORDERED: Morphine Sulfate Inj 2 MG/ML Vial IV.PUSH PRN (12:23)
[2018-04-14] MEDS ORDERED: Phenylephrine Inj 40 MG in Dextrose 5% in Water Inj 496 ML IV.CONT PRN ×2 (12:23)
[2018-04-14] MEDS ORDERED: Insulin Regular (For Infusion) 100 UNIT in Sodium Chlor 0.9% Inj 99 ML IV.CONT PRN (12:23)
[2018-04-14] MEDS ORDERED: Clevidipine Inj 25 MG/50 ML VIAL IV.CONT PRN (12:23)
[2018-04-14] MEDS ORDERED: Albumin Human 5% Inj 250 ML IV.SIG PRN (12:23)
[2018-04-14] MEDS ORDERED: Metoprolol Inj 5 MG/5 ML Vial IV.PUSH PRN (12:23)
[2018-04-14] MEDS ORDERED: Calcium Chloride Inj 1 GM in Sodium Chlor 0.9% Inj 100 ML IV.SIG PRN (12:23)
[2018-04-14] MEDS ORDERED: Magnesium Sulfate Inj 2 GM in Sodium Chlor 0.9% Inj 96 ML IV.SIG PRN (12:23)
[2018-04-14] MEDS ORDERED: Potassium Chlor 20 mEq Premix 20 MEQ/100 ML PIGGYBACK IV.SIG PRN ×2 (12:23)
[2018-04-14] MEDS ORDERED: Dexmedetomidine Inj 200 MCG in Sodium Chlor 0.9% Inj 48 ML IV.CONT PRN (12:23)
[2018-04-14] MEDS ORDERED: hydrALAZINE HCl Inj 20 MG/ML Vial IV.PUSH PRN (12:23)
--- NOTE | 2018-04-14 12:36 | P.OP ---
Date of procedure: 04/14/18 Anesthesia: SIRISHAA Surgeon: Mirian Hernandez MD Operation and Findings: PREOPERATIVE DIAGNOSES 1. Critical Aortic Stenosis. 2. Severe Left Ventricular Dysfunction (EF 15%) 3. NSTEMI 4. Left Ventricular Apical Thrombus POSTOPERATIVE DIAGNOSES Same SURGICAL PROCEDURE Aortic Valve Replacement with a 29 mm Medtronic Mosaic Cinch Tissue valve. DRYING OVEN ATTENDANT KARRI Graham ANESTHESIA General endotracheal. AS400 ADMINISTRATOR Stephen Kwok CRNA, Bonny Mittal MD PREPARATION ChloraPrep. NEEDLE, SPONGE AND INSTRUMENT COUNT Correct. DRAINS Two 32-[place] mediastinal tubes. COMPLICATIONS None. INDICATIONS The patient is a 52-year-old gentleman with critical aortic stenosis, presenting for surgical correction of the above pathology. DESCRIPTION OF PROCEDURE The patient was brought to the operating room and placed supine on the OR table. Following the induction of adequate general endotracheal anesthesia and placement of appropriate monitoring devices, the patient was then prepped and draped in the standard sterile fashion. Median sternotomy was performed, the pericardium was divided in the midline and the cradle created. The patient was systemically heparinized and anticoagulation monitored by serial ACT measurements. Then 2 pursestring sutures of 2-0 Ethibond were placed on the aorta proximal to the takeoff of the innominate artery, another was placed in the right atrial appendage. At this point, aortic and 2-stage venous cannulae were introduced and attached to the arterial and venous components of the bypass circuit respectively. Antegrade cardioplegia cannula and a left ventricular vent, through the right superior pulmonary vein, were also placed. The patient was placed on cardiopulmonary bypass and core cooling initiated to a temperature of 32 degrees centigrade. The crossclamp was applied and 1.5 l of cardioplegia solution ([facility] HTK) given in an antegrade fashion in addition to topical cooling with slushed saline. Upon achieving adequate diastolic arrest of the heart a transverse aortotomy was performed. Additional 500 mL's of cardioplegia was then given directly into the coronary ostia. The aortic valve was then excised. The valve was very heavily calcified with the calcific process extending onto the anterior leaflet of the Mitral valve. Complete circumferential decalcification was performed and care was taken to aspirate and remove all particulate matter. Horizontal mattress sutures of interrupted 2- 0 Ethibond were placed on the aortic annulus with pledgets on the ventricular side. After adequate sizing, a 29 mm Medtronic Mosaic tissue valve was brought in the surgical field and the sutures passed through the skirt. The valve was seated using Cor-knots. This appeared to be a good fit. Gradual rewarming was initiated and the aortotomy closed in 2 layers. This was with 4-0 Prolene; the 1st layer being horizontal mattress, the 2nd layer being running baseball stitch. The cross clamp was removed and upon achieving normothermic cardiac activity, transesophageal echocardiography revealed a well-situated aortic prosthesis with no evidence of perivalvular leak and no aortic stenosis or aortic regurgitation. Protamine was administered. Decannulation was performed and all sites were inspected for hemostasis. At this point the closure was undertaken. The pericardium was reapproximated in the midline. Two ventricular pacing wires and 2 chest tubes placed, and the sternum was reapproximated using stainless steel sternal wires. The musculo-fascial layer was then closed in 3 layers. The patient tolerated the procedure well and was transferred to open heart recovery in stable condition.
[2018-04-14] MEDS ORDERED: Sodium Bicarbonate 8.4% Inj 50 MEQ/50 ML Syringe ONE (13:10)
[2018-04-14] MEDS ORDERED: fentaNYL Citrate Inj 250 MCG/5 ML Ampul ONE ×2 (13:27→14:48)
[2018-04-14] MEDS ORDERED: Sodium Bicarbonate 8.4% Inj 50 MEQ/50 ML Syringe IV.PUSH ONE (13:45)
[2018-04-14] MEDS ORDERED: Atropine Inj 1 MG/10 ML Syringe IV.PUSH ONE (13:45)
[2018-04-14] MEDS ORDERED: Atropine Inj 1 MG/10 ML Syringe ONE (13:45)
--- NOTE | 2018-04-14 13:48 | XR ---
EXAM DATE: 04/14/2018 1:23 PM EDT AGE/SEX: 52 years / Male INDICATIONS: Post op AVR. CLINICAL DATA: This is the patient's initial encounter. Patient reports that signs and symptoms have been present for 1 day and indicates a pain score of Nonresponsive. MEDICAL/SURGICAL HISTORY: . Aortic valve regurgitation. . Palpitations. COMPARISON: C, CHEST 1V SINGLE AP, 04/10/2018. . FINDINGS: The heart is enlarged. The patient is post median sternotomy. The endotracheal tube, nasogastric tube , mediastinal drain and right jugular line are in satisfactory position. The heart is enlarged. There is minimal atelectatic change in the lung bases. CONCLUSION: Cardiomegaly. Supportive but in satisfactory position. Minimal atelectatic changes within the lung bases. Electronically signed by: Andrew Palafox MD 04/14/2018 1:46 PM EDT
[2018-04-14] MEDS ORDERED: Propofol Inj 500 MG/50 ML Vial ONE ×2 (13:50→14:24)
[2018-04-14 13:56] LABS: Baso % (Auto) 0.2 % (0.0-2.0); Eos # (Auto) 0.1 th/mm3 (0.0-0.4); Eos % (Auto) 0.3 % (0.0-4.0); Hematocrit 38.3 % (39.0-51.0); Hemoglobin 12.5 gm/dL (13.0-17.0); Lymph # (Auto) 0.7 th/mm3 (1.0-4.8); Mean Corpuscular HGB Conc 32.7 % (32.0-36.0); Mean Corpuscular Hemoglobin 31.1 pg (27.0-34.0); Mean Corpuscular Volume 95.2 fL (80.0-100.0); Mean Platelet Volume 8.8 fL (7.0-11.0); Mono # (Auto) 1.3 th/mm3 (0.0-0.9); Mono % (Auto) 5.7 % (0.0-8.0); Neut # (Auto) 20.2 th/mm3 (1.8-7.7); Neut % (Auto) 90.8 % (16.0-70.0); Platelet Count 153 th/mm3 (150-450); Red Blood Count 4.02 mil/mm3 (4.50-5.90); Red Cell Distribution Width 14.1 % (11.6-17.2); White Blood Count 22.2 th/mm3 (4.0-11.0)
[2018-04-14] MEDS ORDERED: EPOPROSTENOL NEB SCH ×2 (14:00)
[2018-04-14] MEDS ORDERED: SODIUM CHLOR 0.9% NEB SCH ×2 (14:00)
[2018-04-14] MEDS ORDERED: DOPamine 800 MG/500 ML Premix 800 MG/500 ML PLAST..BAG IV.CONT PRN (14:02)
[2018-04-14 14:07] LABS: Activated Partial Thrombo Time 28.5 sec (24.3-30.1); INR 1.3 Ratio; Prothrombin Time 13.5 sec (9.8-11.6)
[2018-04-14] MEDS ORDERED: Propofol 1000 mg/100 ml Inj 1,000 MG/100 ML BOTTLE IV.CONT PRN (14:20)
--- NOTE | 2018-04-14 14:26 | ECG ---
Date Performed: 04/14/2018 Time Performed: 13:38:23 PTAGE: 52 years EKG: Marked baseline artifact SINUS BRADYCARDIA WITH FIRST DEGREE AV BLOCK BORDERLINE LEFT AXIS DEVIATION LEFT VENTRICULAR HYPERTROPHY AND ST-T CHANGE ABNORMAL ECG There is probably no significant difference although the marked artifact does affect things. I would repeat EKG. PREVIOUS TRACING : 04/10/2018 21.14 DOCTOR: Rene Adkins Interpretating Date/Time 04/14/2018 14:24:54
--- NOTE | 2018-04-14 14:27 | CT ---
EXAM DATE: 04/14/2018 2:21 PM EDT AGE/SEX: 52 years / Male INDICATIONS: Post cardiac valve placement, left side flaccid. CLINICAL DATA: This is the patient's initial encounter. Patient reports that signs and symptoms have been present for 1 day and indicates a pain score of Nonresponsive. MEDICAL/SURGICAL HISTORY: Non-responsive. . cardiac valve placement RADIATION DOSE: 62.19 CTDI (mGy) COMPARISON: No prior exams available for comparison. TECHNIQUE: CT of the head without contrast. Using automated exposure control and adjustment of the mA and/or kV according to patient size, radiation dose was kept as low as reasonably achievable to ob tain optimal diagnostic quality images. DICOM format image data is available electronically for revi ew and comparison. FINDINGS: Cerebrum: The ventricles are normal for age. No evidence of midline shift, mass lesion, hemorrhage or acute infarction. No extraaxial fluid collections are seen. Posterior Fossa: The cerebellum and brainstem are intact. The 4th ventricle is midline. The cerebe llopontine angle is unremarkable. Extracranial: The visualized portion of the orbits is intact. Skull: The calvaria is intact. No evidence of skull fracture. CONCLUSION: 1. Motion otherwise negative, CTA pending Report was called to Dr. Hernandez while on scanner Electronically signed by: Felipe Palafox MD 04/14/2018 2:25 PM EDT
[2018-04-14 14:30] LABS: Eosinophils 1 % (0-4); Lymphocytes 4 % (9-44); Monocytes 4 % (0-8); Platelet Estimate Normal (Normal); Platelet Morphology Normal (Normal); Promyelocyte 1 % (0-0)
--- NOTE | 2018-04-14 15:07 | CT ---
EXAM DATE: 04/14/2018 2:50 PM EDT AGE/SEX: 52 years / Male INDICATIONS: Post cardiac valve placement, left side flaccid. CLINICAL DATA: This is the patient's initial encounter. Patient reports that signs and symptoms have been present for 1 day and indicates a pain score of Nonresponsive. MEDICAL/SURGICAL HISTORY: Non-responsive. . cardiac valve placement RADIATION DOSE: 12.09 CTDI (mGy) ; Combined studies COMPARISON: [facility], CTA NECK W CONTRAST W 3D, 04/14/2018. . TECHNIQUE: Volumetric scanning was performed using a multi-row detector CT scanner during bolus infu kisha of 50 ml Visipaque 320 (iodixanol) nonionic water-soluble contrast as a cumulative dose for mul tiple exams. The data was post processed with a variety of visualization algorithms including full volume maximum intensity projection, multi-planar sliding thin slab reformation, curved planar reform ation, and surface rendering techniques. Using automated exposure control and adjustment of the mA a nd/or kV according to patient size, radiation dose was kept as low as reasonably achievable to obtain optimal diagnostic quality images. DICOM format image data is available electronically for review a nd comparison. FINDINGS: There is excellent visualization of the major intracranial arteries out to the second-order branch ve ssels. Occlusion of the right M1 segment. Intracranial vessels are otherwise patent CONCLUSION: 1. Right M1 embolic event. 2. Results were called to Dr. Hernandez at the time of this dictation. Electronically signed by: David Blackburn MD 04/14/2018 3:05 PM EDT
--- NOTE | 2018-04-14 15:08 | CT ---
EXAM DATE: 04/14/2018 2:51 PM EDT AGE/SEX: 52 years / Male INDICATIONS: Post cardiac valve placement, left side flaccid. CLINICAL DATA: This is the patient's initial encounter. Patient reports that signs and symptoms have been present for 1 day and indicates a pain score of Nonresponsive. MEDICAL/SURGICAL HISTORY: Non-responsive. . cardiac valve placement RADIATION DOSE: 12.09 CTDI (mGy) ; Combined studies COMPARISON: No prior exams available for comparison. TECHNIQUE: Volumetric scanning was performed using a multirow detector CT scanner during bolus infus ion of 50 ml Visipaque 320 (iodixanol) nonionic water-soluble contrast as a cumulative dose for mult iple exams. The data was postprocessed with a variety of visualization algorithms including full-vo lume maximum intensity projection, multiplanar sliding thin-slab reformation, curved-planar reformati on, and surface-rendering techniques. Using automated exposure control and adjustment of the mA and/ or kV according to patient size, radiation dose was kept as low as reasonably achievable to obtain op timal diagnostic quality images. DICOM format image data is available electronically for review and comparison. Percent stenosis is calculated using the diameter of the stenotic region over the diameter of the nor mal distal internal carotid artery. FINDINGS: Aortic Arch: There is a three-vessel origin of the great vessels from the aorta. No evidence of ost ial narrowing Right Carotid: The common carotid artery is intact. The carotid bulb has a normal configuration wit hout ulceration or narrowing. The internal carotid artery lumen is smooth without stenosis. The ext ernal carotid artery is intact. Left Carotid: The common carotid artery is intact. The carotid bulb has a normal configuration with out ulceration or narrowing. The internal carotid artery lumen is smooth without stenosis. The exte rnal carotid artery is intact. Vertebrals: Both vertebrals are diminutive but patent. CONCLUSION: Arch and cervical vessels are patent. Both vertebrals are symmetrically diminutive. Electronically signed by: David Blackburn MD 04/14/2018 3:07 PM EDT
--- NOTE | 2018-04-14 15:35 | P.RAD ---
Post Procedure Progress Note - Procedure Information Procedure Date: 04/14/18 Supervising Radiologist: Leon Tucker MD Assisting Physician: Andrew Palafox Anesthesia: General - Plan of Activity Patient to Unit: PACU Patient Condition: Good See PACS Report for procedural detail/treatment.
--- NOTE | 2018-04-14 15:47 | P.CONCC ---
History of Present Illness Service: Critical care medicine Consult date: 04/14/18 Requesting Physician: Mirian Hernandez Reason for Consult: postop resp failure Primary Care Provider: No Primary Care Physician Chief Complaint: s/p Aortic valve replacement History of Present Illness: 52-year-old male who was admitted with shortness of breath diagnosed to have a critical aortic stenosis as well as an apical LV thrombus by echo. He underwent cardiac catheterization by Dr. Anil Triplett and had essentially clean coronaries. Patient was evaluated by CT surgery Dr. Mirian Hernandez, and underwent aortic valve replacement on 04/14/2018 under general anesthesia following which he was transferred to CVICU. Critical care consult was requested by Dr. Hernandez for postop respiratory failure. I evaluated the patient immediately on being notified of the consult and CVICU. Patient was hypoxic initially with O2 sats in the 88% range which gradually improved with increasing PEEP on 100% FiO2. As patient started arousing from anesthesia it was noted that he was not moving his left upper and lower extremity however was able to follow commands with his right upper and lower extremity including squeezing my hands and limiting his right knee, wiggling toes on the right foot. Embolic stroke was suspected with left hemiplegia and stroke alert was called. I immediately discussed the case with Dr. Hernandez as well as with Dr. Satinder Palafox from interventional radiology. I also spoke with Dr. Hernandez from neurology following stroke alert who evaluated patient in CT room. Patient was taken for head CT which was negative for any bleed. CTA was concerning for right MCA occlusion hence patient was taken to interventional radiology to attempt mechanical clot retrieval. Patient did receive half an amp of atropine for bradycardia as well as was started on Levophed for borderline blood pressures prior to transporting for CAT scan. Review of Systems unobtainable due to endotracheal tube PMFSH - History History Provided By: Patient - Medical History Medical History: Medical History (Last Reviewed 04/14/18 @ 14:19 by Logan Villarreal) Aortic valve regurgitation Palpitations - Tobacco History Second Hand Smoke Exposure: No Tobacco Use In Past 30 Days: Yes (Snuff Daily) Smoking Status: Never smoker Tobacco Type: Smokeless Tobacco - Alcohol History How Often Do You Have a Drink Containing Alcohol: 2 to 3 times a week - Substance Use History Substance History: No History of Abuse - Travel History Recent Travel in the [facility] Within the Last 8 Weeks: No Recent Travel Out of the Country Within the Last 8 Weeks: No - Immunization History Tetanus Immunization: Unsure Hx Influenza Vaccine This Season: No Medications and Allergies Active Medications: Active Medications Acetaminophen (Tylenol) 650 mg PO Q4H PRN PRN Reason: FEVER > 101 F Acetaminophen (Tylenol Supp) 650 mg RECTAL Q4H PRN PRN Reason: FEVER > 101 F Hydrocodone Bitart/Acetaminophen ([place] 5/325) 1 tab PO Q3H PRN PRN Reason: PAIN SCALE 1 TO 5 Al Hydroxide/Mg Hydroxide (Milk Of [place]) 30 ml PO Q12H PRN PRN Reason: Mild Constipation Albuterol (Duoneb Neb (Prn)) 1 ampul NEB Q2HR NEB PRN PRN Reason: WHEEZING Albuterol (Duoneb Neb (Nahun)) 1 ampul NEB Q6HR NEB [facility] Amiodarone HCl (Cordarone) 200 mg PO Q12HR [facility] Aspirin (Aspirin Chew) 81 mg PO DAILY [facility] Calcium Chloride (Calcium Chloride Inj) 0.5 gm IV.PUSH UNSCH PRN PRN Reason: SEE LABEL COMMENTS Chlorhexidine Gluconate (Hibiclens 4% Topical) 1 applicatio TOPICAL MICROBIOLOGY TECHNICIAN [facility] Stop: 04/16/18 16:24 Chlorhexidine Gluconate (Chlorhexidine 2% Cloth) 3 pack TOPICAL MICROBIOLOGY TECHNICIAN [facility] Stop: 04/16/18 22:35 Sodium Chloride 500 ml/ (Cefazolin Sodium 500 mg) 0 ml IRRIGATION MICROBIOLOGY TECHNICIAN [facility] Stop: 04/16/18 16:27 Dextrose (D50w Vial) 50 ml IV.PUSH UNSCH PRN PRN Reason: PER HYPOGLYCEMIA PROTOCOL Dextrose (D50w Vial) 50 ml IV.PUSH UNSCH PRN PRN Reason: PER HYPOGLYCEMIA PROTOCOL Fentanyl Citrate (Fentanyl Inj) 25 mcg IV.PUSH Q1H PRN PRN Reason: BREAKTHROUGH PAIN Sodium Chloride (Ns Inj) 1,000 mls @ 100 mls/hr IV.CONT .Q10H [facility] Last Admin: 04/14/18 10:05 Dose: Not Given Insulin Human Regular 100 unit (/ Sodium Chloride) 100 mls @ 3 mls/hr IV.CONT TITRATE PRN; Protocol PRN Reason: See Protocol Cefazolin Sodium 2,000 mg/ (Sodium Chloride) 100 mls @ 200 mls/hr IV.SIG MICROBIOLOGY TECHNICIAN [facility] Stop: 04/16/18 16:27 Lactated Ringer's (Lr 1000 Ml Inj) 1,000 mls @ 30 mls/hr IV.SIG .Q24H [facility] Stop: 04/16/18 22:35 Last Infusion: 04/14/18 10:07 Dose: Infused Sodium Chloride (Ns Inj) 500 mls @ 30 mls/hr IV.SIG .Q10H [facility] Stop: 04/16/18 22:35 Acetaminophen (Ofirmev Inj) 1,000 mg in 100 mls @ 400 mls/hr IV.SIG Q6H [facility] Stop: 04/15/18 07:14 Albumin Human (Buminate 5% Inj) 250 mls @ 250 mls/hr IV.SIG UNSCH PRN PRN Reason: SEE LABEL COMMENTS Cefazolin Sodium 2,000 mg/ (Sodium Chloride) 100 mls @ 200 mls/hr IV.SIG Q8H [facility] Stop: 04/16/18 04:29 Clevidipine (Cleviprex Inj) 25 mg in 50 mls @ 2 mls/hr IV.CONT TITRATE PRN; Protocol PRN Reason: Per protocol Dexmedetomidine HCl 200 mcg/ (Sodium Chloride) 50 mls @ 5.27 mls/hr IV.CONT TITRATE PRN; Protocol PRN Reason: Per Protocol Insulin Human Regular 100 unit (/ Sodium Chloride) 100 mls @ 3 mls/hr IV.CONT TITRATE PRN; Protocol PRN Reason: See Protocol Magnesium Sulfate Inj 2 gm/ (Sodium Chloride) 100 mls @ 50 mls/hr IV.SIG PRN PRN PRN Reason: SEE LABEL COMMENTS Magnesium Sulfate Inj 2 gm/ (Sodium Chloride) 100 mls @ 50 mls/hr IV.SIG PRN PRN PRN Reason: SEE LABEL COMMENTS Potassium Chloride (Kcl 20 Meq Premix Inj) 20 meq in 100 mls @ 50 mls/hr IV.SIG PRN PRN PRN Reason: SEE LABEL COMMENTS Potassium Chloride (Kcl 20 Meq Premix Inj) 20 meq in 100 mls @ 50 mls/hr IV.SIG PRN PRN PRN Reason: SEE LABEL COMMENTS Potassium Chloride (Kcl 20 Meq Premix Inj) 20 meq in 100 mls @ 50 mls/hr IV.SIG PRN PRN PRN Reason: SEE LABEL COMMENTS Calcium Chloride 1 gm/ Sodium (Chloride) 110 mls @ 100 mls/hr IV.SIG PRN PRN PRN Reason: SEE LABEL COMMENTS Lactated Ringer's (Lr 1000 Ml Inj) 500 mls @ 500 mls/hr IV.SIG .Q1H PRN PRN Reason: SEE LABEL COMMENTS Phenylephrine HCl 40 mg/ (Dextrose) 500 mls @ 30 mls/hr IV.CONT TITRATE PRN; Protocol PRN Reason: Per Protocol Dopamine HCl/Dextrose (Dopamine 800 Mg/500 Ml Premix) 800 mg in 500 mls @ 11.869 mls/hr IV.CONT TITRATE PRN; Protocol PRN Reason: Per Protocol Epoprostenol Sodium 35 ml/ (Sodium Chloride) 100 mls @ 8 mls/hr NEB Q8H [facility] Norepinephrine Bitartrate (Levophed-Dextrose 4 Mg/250 Ml Drip) 4 mg in 250 mls @ 7.5 mls/hr IV.SIG TITRATE PRN; Protocol PRN Reason: Per Protocol Propofol (Diprivan 1000 Mg/100 Ml Inj) 1,000 mg in 100 mls @ 3.165 mls/hr IV.CONT TITRATE PRN; Protocol PRN Reason: Per Protocol Ketorolac Tromethamine (Toradol Inj) 15 mg IV.PUSH Q6H PRN PRN Reason: SEE LABEL COMMENTS Stop: 04/16/18 12:22 Meperidine HCl (Demerol Inj) 12.5 mg IV.PUSH Q4H PRN PRN Reason: SHIVERING Metoprolol Tartrate (Lopressor) 12.5 mg PO MICROBIOLOGY TECHNICIAN [facility] Stop: 04/16/18 16:27 Last Admin: 04/14/18 05:24 Dose: 12.5 mg Metoprolol Tartrate (Lopressor Inj) 2.5 mg IV.PUSH Q1H PRN PRN Reason: SEE LABEL COMMENTS Morphine Sulfate (Morphine Inj) 1 mg IV.PUSH Q10M PRN PRN Reason: PAIN SCALE 1 TO 5 Mupirocin (Bactroban 2% Nasal Oint) 1 applicatio EACH NARE BID [facility] Stop: 04/14/18 16:27 Last Admin: 04/14/18 11:53 Dose: Not Given Ondansetron HCl (Zofran Inj) 4 mg IV.PUSH Q6H PRN PRN Reason: NAUSEA OR VOMITING Ondansetron HCl (Zofran Inj) 4 mg IV.PUSH Q6H PRN PRN Reason: NAUSEA OR VOMITING Pantoprazole Sodium (Protonix) 40 mg PO DAILY@06 [facility] Phenylephrine HCl (Neosynephrine Inj) 0.1 mg IV.PUSH UNSCH PRN PRN Reason: SEE LABEL COMMENTS Potassium Chloride (K-Dur) 20 meq PO UNSCH PRN PRN Reason: SEE LABEL COMMENTS Potassium Chloride (K-Dur) 40 meq PO UNSCH PRN PRN Reason: SEE LABEL COMMENTS Povidone Iodine (Betadine 5% Antisepsis Kit) 1 applicatio EACH NARE MICROBIOLOGY TECHNICIAN [facility] Stop: 04/16/18 22:35 Senna/Docusate Sodium (Lizett-Colace) 1 tab PO BID [facility] Last Admin: 04/14/18 11:53 Dose: Not Given Sennosides (Senokot) 17.2 mg PO Q12H PRN PRN Reason: Moderate Constipation Sodium Bicarbonate (Sodium Bicarbonate 8.4% Inj) 50 meq IV.PUSH UNSCH PRN PRN Reason: SEE LABEL COMMENTS Sodium Bicarbonate (Sodium Bicarbonate 8.4% Inj) 100 meq IV.PUSH UNSCH PRN PRN Reason: SEE LABEL COMMENTS Sodium Chloride (Ns Flush) 2 ml IV.FLUSH PRN PRN PRN Reason: FLUSH AFTER USING IV ACCESS Sodium Chloride (Ns Flush) 2 ml IV.FLUSH BID [facility] Last Admin: 04/14/18 11:53 Dose: Not Given Sodium Chloride (Ns Flush) 2 ml IV.FLUSH PRN PRN PRN Reason: FLUSH AFTER USING IV ACCESS Sodium Chloride (Ns Flush) 2 ml IV.FLUSH BID [facility] Last Admin: 04/14/18 11:53 Dose: Not Given Sodium Chloride (Ns Flush) 2 ml IV.FLUSH PRN PRN PRN Reason: FLUSH AFTER USING IV ACCESS Sodium Chloride (Ns Flush) 2 ml IV.FLUSH BID [facility] Terbutaline Sulfate (Brethine Inj) 1 mg SQ ONCE PRN PRN Reason: Extravasation Terbutaline Sulfate (Brethine Inj) 1 mg SQ UNSCH PRN PRN Reason: For Extravasation Terbutaline Sulfate (Brethine Inj) 1 mg SQ UNSCH PRN PRN Reason: For Extravasation Terbutaline Sulfate (Brethine Inj) 1 mg SQ ONCE PRN PRN Reason: Extravasation Terbutaline Sulfate (Brethine Inj) 1 mg SQ UNSCH PRN PRN Reason: For Extravasation Allergies Allergy/AdvReac Type Severity Reaction Status Date / Time tree and shrub pollen Allergy Intermediate itchy rash Verified 04/10/18 07:48 poison oak extract Allergy Swelling Verified 04/10/18 07:47 of Lip/Tongue/Throat Home Medications Medication Instructions Recorded Confirmed Type No Known Home Medications 04/10/18 04/10/18 History Physical Exam Vital signs: Vital Signs 04/13/18 16:00 04/13/18 17:00 04/13/18 18:00 Temperature Pulse Rate 80 89 66 Respiratory Rate Blood Pressure Pulse Oximetry 04/13/18 19:00 04/13/18 20:00 04/13/18 21:00 Temperature 97.7 F Pulse Rate 72 68 61 Respiratory Rate Blood Pressure 96/66 L Pulse Oximetry 97 04/13/18 22:00 04/13/18 23:00 04/14/18 00:00 Temperature Pulse Rate 62 60 54 L Respiratory Rate 16 Blood Pressure Pulse Oximetry 04/14/18 01:00 04/14/18 02:00 04/14/18 03:00 Temperature 97.8 F Pulse Rate 63 58 L 65 Respiratory Rate Blood Pressure 104/76 Pulse Oximetry 97 04/14/18 04:00 04/14/18 05:00 04/14/18 06:00 Temperature Pulse Rate 65 63 64 Respiratory Rate Blood Pressure Pulse Oximetry 04/14/18 13:05 04/14/18 13:33 Temperature Pulse Rate 47 L Respiratory Rate 16 16 Blood Pressure Pulse Oximetry 83 L Intake & Output 04/13/18 04/14/18 04/14/18 18:59 06:59 18:59 Intake Total 1440 / 1440 620 / 620 4050 / 4050 Output Total 1500 / 1500 1900 / 1900 2600 / 2600 Balance -60 / -60 -1280 / -1280 1450 / 1450 Weight 105.5 kg Intake: IV 1050 / 1050 LR 1000 mL Inj 1,000 ML @ 30 1000 / 1000 mls/hr IV.SIG .Q24H [facility] Rx#: [id number] Ancef 2 GM Premix Inj 2 gm In 50 / 50 50 ml @ 0 mls/hr IV.SIG .STK- [facility] Rx#:[id number] Oral 1440 / 1440 620 / 620 Anesthesia Amount 3000 / 3000 Output: Urine 1500 / 1500 1900 / 1900 Estimated Blood Loss 2000 / 2000 Urine Amount (Catheter) 600 / 600 Indwelling Temp Sensing 600 / 600 Catheter Other: Date of Last Bowel Movement 04/11/18 04/13/18 # Bowel Movements 0 1 Narrative: HEENT/ Neuro: Sedated, arousable, orally intubated, no pallor, no icterus, tongue/ mucosa moist. Pupils bilaterally constricted 2 mm(immediate postop) following commands including squeezing with right hand as well as with mucosa and bending right knee however dense hemiplegia with no movements noted in left foot and lower extremity. Neck: No JVD Chest/Pulm: on mech vent, good air entry bilaterally, no wheezing or crackles CVS: Sternotomy site with wound VAC in place, S1-S2 regular, no murmur, chest tube in place with minimal sanguinous output. GI/abdomen: soft, nontender, bowel sounds sluggish Extremities: warm bilaterally, no edema - Urinary Catheter Management Indwelling Temp Sensing Catheter Cath placed during this visit: yes Reason for continuing: Hourly intake/output Insertion date: 04/14/18 Insertion time: 08:00 Assessment and Plan - Assessment and Plan Plan: 52-year-old male with: Critical aortic stenosis status post aortic valve replacement. Day 0 Postop respiratory failure on mechanical ventilation Embolic stroke with left hemiplegia LV thrombus Bradycardia Hypotension Plan: Neuro: Stroke alert called earlier. Head CT negative for bleed. CTA suggestive of right MCA territory occlusion following which patient taken for interventional radiology for mechanical clot retrieval. On aspirin preoperatively. Neurology consulted. Okay for aspirin and heparin gtt if needed per discussion with Dr. Mirian Hernandez. Neurochecks per protocol. Further recommendations per neurology. Cardiovascular: Status post aortic valve replacement postop day 0. Being followed by CT surgery Follow chest tube output. On Levophed to maintain map greater than 65. Use dopamine if needed for bradycardia. Received half amp of atropine following arrival to CVICU for bradycardia. Pulmonary: On mechanical ventilation. Vent bundle, bronchodilators as needed. Attempt to wean FiO2. PEEP increased to +8 earlier for hypoxia. Postop chest x-ray shows well-expanded lung baez, cardiomegaly. Hold off on maintaining till improvement in neurologic status following stroke alert. GI/liver: N.p.o. for now. If not extubated tomorrow will consider tube feeds. Renal/: IV hydration, strict intake output, monitor and replete electrolyte, follow BUN/creatinine. ID: Periop antibiotic prophylaxis per CT surgery. Heme: Follow CBC and coags. Antiplatelet therapy/anticoagulation to be decided by neurology/interventional radiology following intervention. Endocrine: Insulin drip for glycemic control if needed during immediate postop period. Prophylaxis: Protonix/SCDs. Subcu heparin/Lovenox when okay with CT surgery unless started on heparin GTT following stroke intervention. Discussed with Dr. Lawanda Hernandez, Dr. Hernandez, Dr. Satinder Palafox. Condition critical. Time spent on critical care excluding procedures 120 minutes including initial evaluation, discussion with multiple physicians, accompanying patient for imaging following stroke alert.
[2018-04-14] MEDS: Heparin Drip 25,000 UNIT/250 ML BAG IV.CONT PRN (16:17)
--- NOTE | 2018-04-14 16:18 | IR ---
CORRECTION REPORT, added Timeline, 05/30/18 EXAM DATE: 04/14/2018 4:00 PM EDT AGE/SEX: 52 years / Male INDICATIONS: 52-year-old male with right M1 occlusion post op. CLINICAL DATA: This is the patient's initial encounter. Patient reports that signs and symptoms have been present for 1 day and indicates a pain score of Nonresponsive. 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 . FLUORO TIME (min): 8.2 IMAGE SERIES: 6 ACCESS SITE: Right femoral artery CONTRAST (cc): 35 Visipaque (iodixanol) Anesthesia and pain control was provided by the Anesthesia department. DEVICE(S): Right common femoral artery Angio-Seal 6F TIMELINE: Interventional Team Called: 1440 Interentional Team Arrived: 1440 Interventional Team Ready 1440 Patient Arrival: 1443 Groin Puncture: 1456 Recanalization: 1521 PROCEDURE : 1. Ultrasound-guided puncture of the access site. 2. Conscious sedation with continuous EKG and Oximetry monitoring. 3. Cerebral angiography 4. Mechanical thrombectomy of right M1 occlusion The risks, benefits and alternatives to the procedure were explained and verbal and written consent w as obtained. The site was prepped in sterile fashion. Full sterile technique was used, including ca p, mask, sterile gloves and gown and a large sterile sheet. Hand hygiene and 2% chlorhexidine and/or betadine/alcohol prep was utilized per protocol for cutaneous antisepsis. Sterile gel and sterile p robe cover were utilized for ultrasound guidance. The skin and subcutaneous tissues were infiltrated with local anesthetic solution. With ultrasound and fluoroscopic guidance the selected artery was punctured and a Neuron Max sheath w as placed. A 5 [place] JB2 catheter was then used to select the right internal carotid artery. Angiogr aphy was performed confirming the findings of proximal right M1 occlusion. Next, a proximal men micro catheter was advanced with the assistance of an individual the microwire into the right M2 branch. AC E 68 catheter was then advanced to the leading edge of the thrombus and suction applied. Catheter was subsequently retracted and removed through the sheath. Follow-up cerebral angiography demonstrated T ICI 3 revascularization of the MCA territory. Wires and catheters were then removed. The puncture site was closed with 6 [place] Angio-Seal device and hemostasis was obtained. The patient tolerated the procedure well and there were no complications. Conscious sedation was performed with the prescribed dosages and duration as above in the presence of an independent trained radiology nurse to assist in the monitoring of the patient. EKG and oximetry remained stable throughout the procedure. CONCLUSION: 1. Proximal right M1 occlusion. 2. Uncomplicated mechanical thrombectomy of right M1 thrombus with TICI 3 revascularization. Electronically signed by: Leon Tucker MD 04/14/2018 4:17 PM EDT Electronically signed by: Leon Tucker MD 05/30/2018 3:49 PM EDT
--- NOTE | 2018-04-14 16:23 | MB ---
cc: Ward Hernandez MD, PhD DATE: 04/14/2018 REASON FOR CONSULTATION: Stroke alert. HISTORY OF PRESENT ILLNESS: Mr. Wood is a 52-year-old man who has a cardiomyopathy with an ejection fraction of 15%. Had a small left ventricular thrombus on echocardiogram, severe aortic valve stenosis. The patient underwent surgery earlier today for aortic valve replacement. He is noted to have dense left hemiplegia when he was awakening after anesthesia. A stroke alert was therefore called. He was able to move the right side well. PAST MEDICAL HISTORY: History of severe aortic stenosis, congestive heart failure, right ulnar nerve tumor removal. CURRENT MEDICATIONS: 1. Tylenol p.r.n. 2. [place] p.r.n. pain. 3. Albuterol p.r.n. 4. Amiodarone 200 mg b.i.d. 5. Aspirin 81 mg daily. 6. Calcium chloride. 7. Cefazolin. 8. Clevidipine. NEUROLOGICAL PHYSICAL EXAMINATION: VITAL SIGNS: Blood pressure is 104/76, pulse. HIGHER CORTICAL FUNCTION: The patient is sedated. Follows simple commands. Cranial nerves grossly intact. On motor exam, he has got a left hemiplegia. He can move the left arm slightly. Would grade at approximately 1/5 in strength. Left leg is 0/5 strength. He has normal movement of the right arm and right leg. IMAGING STUDIES: CT brain without contrast is negative. CT angiogram shows evidence of a right MCA thrombus. LABORATORY DATA: The white count 22,200, hemoglobin 12.5, hematocrit 38.3%, platelet count 153,000. PT 13.5, INR 1.3, APTT 28.5. Sodium is 143, potassium 4.2, chloride 110, CO2 27.3, BUN is 12, creatinine 1.04, GFR 75, glucose 163. IMPRESSION: Acute right middle cerebral artery stroke. There is evidence of large vessel occlusion in the right MCA. The patient is currently being transported to the interventional radiology suite for thrombectomy. He is not a candidate for IV tPA because of the recent surgery. Ward Hernandez MD, PhD TACO/rudy , 02:50 PM , 02:58 PM
[2018-04-14] MEDS: EPOPROSTENOL NEB SCH ×2 (18:36→22:02)
[2018-04-14] MEDS: SODIUM CHLOR NEB SCH ×2 (18:36→22:02)
[2018-04-14 18:45] LABS: INR 1.3 Ratio
[2018-04-14 18:59] LABS: Troponin I 5.26 ng/mL (0.02-0.05)
[2018-04-14] MEDS: ceFAZolin Inj 2,000 MG in Sodium Chlor 0.9% Inj 80 ML IV.SIG SCH (20:48)
--- NOTE | 2018-04-15 03:08 | XR ---
EXAM DATE: 04/15/2018 2:43 AM EDT AGE/SEX: 52 years / Male INDICATIONS: Short of breath. CLINICAL DATA: This is the patient's subsequent encounter. Patient reports that signs and symptoms h ave been present for 3 days and indicates a pain score of 0/10. MEDICAL/SURGICAL HISTORY: . Aortic valve regurgitation. CABG. COMPARISON: [facility] [place], CHEST 1V SINGLE AP, 04/14/2018. . FINDINGS: A single AP view of the chest demonstrates cardiomegaly with previous CABG. Mediastinal chest tubes a re stable. Bibasilar densities greater left lower lobe. Nasogastric tube and endotracheal tube remove d. Right jugular line stable position.. The cardiomediastinal contours are unremarkable. Osseous st ructures are intact. CONCLUSION: Cardiomegaly with bibasilar densities, greater left lower lobe. Electronically signed by: Robert Sanchez MD 04/15/2018 3:06 AM EDT
[2018-04-15] MEDS: Sod Chloride 0.9% Inj 1,000 ML IV.CONT SCH ×3 (03:41→23:20)
[2018-04-15] MEDS: ceFAZolin Inj 2,000 MG in Sodium Chlor 0.9% Inj 80 ML IV.SIG SCH ×3 (03:47→20:44)
[2018-04-15] MEDS: Ketorolac Inj 30 MG/ML (IVP) Vial IV.PUSH PRN ×2 (05:03→12:28)
[2018-04-15 05:08] LABS: Hematocrit 31.4 % (39.0-51.0); Hemoglobin 10.5 gm/dL (13.0-17.0); Mean Corpuscular HGB Conc 33.6 % (32.0-36.0); Mean Corpuscular Hemoglobin 31.6 pg (27.0-34.0); Mean Corpuscular Volume 94.1 fL (80.0-100.0); Mean Platelet Volume 8.3 fL (7.0-11.0); Platelet Count 163 th/mm3 (150-450); Red Blood Count 3.33 mil/mm3 (4.50-5.90); Red Cell Distribution Width 13.6 % (11.6-17.2); White Blood Count 12.8 th/mm3 (4.0-11.0)
[2018-04-15 05:32] LABS: Calcium 7.8 mg/dL (8.5-10.1); Carbon Dioxide 26.8 meq/L (21.0-32.0); Potassium 3.8 meq/L (3.5-5.1)
[2018-04-15] MEDS: Potassium Chlor 20 mEq Premix 20 MEQ/100 ML PIGGYBACK IV.SIG PRN (06:11)
[2018-04-15] MEDS: EPOPROSTENOL NEB SCH (06:12)
[2018-04-15] MEDS: Magnesium Sulfate Inj 2 GM in Sodium Chlor 0.9% Inj 96 ML IV.SIG PRN (06:12)
[2018-04-15] MEDS: SODIUM CHLOR NEB SCH (06:12)
[2018-04-15] MEDS ORDERED: Dextrose 50% in Water 50 ML Vial IV.PUSH PRN (09:04)
[2018-04-15] MEDS ORDERED: Sod Phosphate/Sod Biphosphate (Adult) Enema 133 ML Bottle RECTAL PRN (09:04)
[2018-04-15] MEDS ORDERED: Bisacodyl 10 MG Supp RECTAL PRN (09:04)
--- NOTE | 2018-04-15 09:09 | P.PNCC ---
Subjective Subjective Remarks/Hospital Course: 04/14: 52-year-old male who was admitted with shortness of breath diagnosed to have a critical aortic stenosis as well as an apical LV thrombus by echo. He underwent cardiac catheterization by Dr. Anil Triplett and had essentially clean coronaries. Patient was evaluated by CT surgery Dr. Mirian Hernandez, and underwent aortic valve replacement on 04/14/2018 under general anesthesia following which he was transferred to CVICU. Critical care consult was requested by Dr. Hernandez for postop respiratory failure. I evaluated the patient immediately on being notified of the consult and CVICU. Patient was hypoxic initially with O2 sats in the 88% range which gradually improved with increasing PEEP on 100% FiO2. As patient started arousing from anesthesia it was noted that he was not moving his left upper and lower extremity however was able to follow commands with his right upper and lower extremity including squeezing my hands and bending his right knee, wiggling toes on the right foot. Embolic stroke was suspected with left hemiplegia and stroke alert was called. I immediately discussed the case with Dr. Hernandez as well as with Dr. Satinder Palafox from interventional radiology. I also spoke with Dr. Hernandez from neurology following stroke alert who evaluated patient in CT room. Patient was taken for head CT which was negative for any bleed. CTA was concerning for right MCA occlusion hence patient was taken to interventional radiology to attempt mechanical clot retrieval. Patient did receive half an amp of atropine for bradycardia as well as was started on Levophed for borderline blood pressures prior to transporting for CAT scan. Objective Vital Signs / I&O: Vital Signs 04/14/18 13:00 04/14/18 13:05 04/14/18 13:33 Temperature 98.0 F Pulse Rate 56 L 47 L Respiratory Rate 17 16 16 Blood Pressure 117/65 Pulse Oximetry 86 L 83 L 04/14/18 15:42 04/14/18 15:54 04/14/18 16:39 Temperature 98.3 F Pulse Rate 64 Respiratory Rate 18 18 Blood Pressure 117/65 Pulse Oximetry 97 98 99 04/14/18 17:10 04/14/18 17:30 04/14/18 18:23 Temperature Pulse Rate 63 Respiratory Rate Blood Pressure Pulse Oximetry 98 99 04/14/18 19:00 04/14/18 19:45 04/14/18 20:30 Temperature 99.1 F Pulse Rate 59 L Respiratory Rate 16 12 Blood Pressure 124/68 Pulse Oximetry 99 98 97 04/14/18 21:45 04/14/18 22:01 04/14/18 23:05 Temperature Pulse Rate 61 Respiratory Rate 14 21 Blood Pressure Pulse Oximetry 97 97 04/14/18 23:15 04/14/18 23:20 04/15/18 03:32 Temperature 99.0 F 98.8 F Pulse Rate 64 60 Respiratory Rate 21 15 Blood Pressure 115/63 110/65 Pulse Oximetry 94 L 99 94 L 04/15/18 03:40 04/15/18 07:00 04/15/18 08:39 Temperature 97.8 F Pulse Rate 72 83 Respiratory Rate 24 18 Blood Pressure 130/64 Pulse Oximetry 98 93 L Intake & Output 04/14/18 04/15/18 04/15/18 18:59 06:59 18:59 Intake Total 4260 / 4260 600 / 600 Output Total 3415 / 3415 850 / 850 Balance 845 / 845 -250 / -250 Weight 110 kg Intake: IV 1260 / 1260 400 / 400 Ofirmev Inj 1,000 mg In 100 ml 100 / 100 200 / 200 @ 400 mls/hr IV.SIG Q6H [facility] Rx# :[id number] Calcium Chloride Inj 1 GM In NS 110 / 110 Inj 100 ML @ 100 mls/hr IV.SIG PRN PRN Rx#:[id number] LR 1000 mL Inj 1,000 ML @ 30 1000 / 1000 0 / 0 mls/hr IV.SIG .Q24H [facility] Rx#: [id number] Ancef 2 GM Premix Inj 2 gm In 50 / 50 50 ml @ 0 mls/hr IV.SIG .STK- [facility] Rx#:[id number] Ancef Inj 2,000 MG In NS Inj 80 200 / 200 ML @ 200 mls/hr IV.SIG Q8H [facility] Rx#:[id number] Oral 200 / 200 Anesthesia Amount 3000 / 3000 Output: Estimated Blood Loss 2000 / 2000 Urine Amount (Catheter) 1125 / 1125 500 / 500 Indwelling Temp Sensing 1125 / 1125 500 / 500 Catheter Gastric Drainage 50 / 50 Oral Orogastric Tube 50 / 50 Chest Tube Drainage 240 / 240 350 / 350 #1 240 / 240 350 / 350 Other: Date of Last Bowel Movement 04/13/18 Result Diagrams: 04/15/18 04:54 04/15/18 04:54 Objective Remarks: HEENT/Neuro: Pallor present, no icterus, tongue moist, SANA, Awake alert oriented 3, speech is slightly slurred. Following commands. Moving all 4 extremities with grade 4 power in left upper and lower extremities which is a significant improvement compared to his initial eval on 04/14 in the immediate postop period With dense left hemiplegia Neck: No JVD Chest/pulmonary: On 10 L O2 via facemask, air entry decreased bilaterally at bases, scattered rhonchi, no wheezing Cardiovascular: S1-S2 regular no gallop or murmur. Wound VAC over sternotomy site. Chest tube with 350cc output overnight GI/abdomen: Soft, nontender, bowel sounds present Extremities: Warm bilaterally, no edema Assessment and Plan - Assessment and Plan Plan: 52-year-old male with: Critical aortic stenosis status post aortic valve replacement 04/14 Postop respiratory failure Embolic stroke with left hemiplegia LV thrombus Bradycardia Hypotension Plan: Neuro: Stroke alert called on 04/14 immediate postop period following arrival to CVICU. Head CT negative for bleed. CTA suggestive of right MCA territory occlusion following which patient taken for interventional radiology and successful mechanical clot retrieval from occluded M! segment of right MCA performed. On aspirin preoperatively. Neurology consulted and following. Aspirin and heparin gtt per Neurology. Neurochecks per protocol. Awaiting repeat head CT on 04/15. Further recommendations per neurology. Cardiovascular: Status post aortic valve replacement postop day 1. Being followed by CT surgery Follow chest tube output. Off levophed. Pulmonary: Extubated on 04/14 night, requiring 10 lit O2. bronchodilators as needed. Attempt to wean FiO2. PEEP increased to +8 earlier for hypoxia. Postop chest x-ray shows well-expanded lung baez, cardiomegaly. Hold off on maintaining till improvement in neurologic status following stroke alert. GI/liver: Speech and swallow eval per stroke protocol. Advance p.o. diet as tolerated. Renal/: strict intake output, monitor and replete electrolyte, follow BUN/ creatinine. Lasix 20 mg IV 1 dose to mobilize fluids ID: Periop antibiotic prophylaxis per CT surgery. Heme: Follow CBC and coags. Antiplatelet therapy/anticoagulation per neurology. On heparin GTT, aspirin. Endocrine: Insulin drip for glycemic control if needed during immediate postop period. Prophylaxis: Protonix/SCDs. heparin GTT.
--- NOTE | 2018-04-15 09:18 | P.PNCV ---
- Note Subjective/Hospital Course: This 52-year-old male presented to the emergency room with shortness of breath without exertion for the last month. No syncope or chest pain, but the breathing has become worse over the past week. He has not seen a physician since 2008. He was seen in the past for fatigue and worked up for presyncope in 2005, was seen at that time by Dr. Calderon, was found to have some heart murmur , had an echo, was told he had some aortic valve involvement. The patient presented with a troponin of 0.41. However, the heart catheterization showed no evidence of coronary disease, possibly elevated due to critical aortic stenosis. He underwent also an echocardiogram which showed a valve area of 0.38 , with some trace tricuspid valve regurgitation, trace mitral valve regurgitation, pulmonary artery pressures of 29 mmHg, ejection fraction of 15%, diffuse global AP hypokinesis. There was also a small 12 x 14 mm, round mobile calcified apical left ventricular thrombus. We were consulted for aortic valve replacement. 04/11 The ECHO and angiographic findings were discussed in detail with the patient and his family. The option of mechanical versus tissue valve was discussed in detail as well as the advantages and disadvantages of both types of valves. He understands the provided information and wishes to opt for the tissue valve to avoid life-long anticoagulation therapy. The risks, complications including but not limited to bleeding, infection, stroke, myocardial injury and , and benefits of the surgical procedure were discussed in details and all questions answered. He understands the provided information and agrees to proceed with the planned operation. We will plan on proceeding with the surgical procedure as describe above on Saturday. Thank you for allowing me to participate in the care of this patient. surgery: 04/14 PREOPERATIVE DIAGNOSES 1. Critical Aortic Stenosis. 2. Severe Left Ventricular Dysfunction (EF 15%) 3. NSTEMI 4. Left Ventricular Apical Thrombus POSTOPERATIVE DIAGNOSES Same SURGICAL PROCEDURE Aortic Valve Replacement with a 29 mm Medtronic Mosaic Cinch Tissue valve. crystalloid 4000cc, cell saver 1000cc, EBL 2000cc stroke alert called 15 min after arrival to CVICU left sided weakness, left facial drooping stat CTA head showed acute right MCA stroke thrombectomy completed by IR, placed on Heparin gtt 04/15 Bp stable , low dose lasix given , follows commands , moving left arm and leg , left arm 3/5 left leg 4/5 left facial droop, follows commands consult OT/ speech / has PT / for repeat CT head this am will need coumadin keep in CVIVU for now Objective: Vital Signs - 24 hr 04/14/18 13:00 04/14/18 13:05 04/14/18 13:33 Temperature 98.0 F Pulse Rate 56 L 47 L Respiratory Rate 17 16 16 Blood Pressure 117/65 Pulse Oximetry 86 L 83 L 04/14/18 15:42 04/14/18 15:54 04/14/18 16:39 Temperature 98.3 F Pulse Rate 64 Respiratory Rate 18 18 Blood Pressure 117/65 Pulse Oximetry 97 98 99 04/14/18 17:10 04/14/18 17:30 04/14/18 18:23 Temperature Pulse Rate 63 Respiratory Rate Blood Pressure Pulse Oximetry 98 99 04/14/18 19:00 04/14/18 19:45 04/14/18 20:30 Temperature 99.1 F Pulse Rate 59 L Respiratory Rate 16 12 Blood Pressure 124/68 Pulse Oximetry 99 98 97 04/14/18 21:45 04/14/18 22:01 04/14/18 23:05 Temperature Pulse Rate 61 Respiratory Rate 14 21 Blood Pressure Pulse Oximetry 97 97 04/14/18 23:15 04/14/18 23:20 04/15/18 03:32 Temperature 99.0 F 98.8 F Pulse Rate 64 60 Respiratory Rate 21 15 Blood Pressure 115/63 110/65 Pulse Oximetry 94 L 99 94 L 04/15/18 03:40 04/15/18 07:00 04/15/18 08:39 Temperature 97.8 F Pulse Rate 72 83 Respiratory Rate 24 18 Blood Pressure 130/64 Pulse Oximetry 98 93 L GENERAL: A&O , speech slightly slurred SKIN: Warm and dry. prevena dressing to chest HEAD: Atraumatic. Normocephalic. left facial droop EYES: Pupils equal and round. No scleral icterus. No injection or drainage. ENT: No nasal bleeding or discharge. Mucous membranes pink and moist. NECK: Trachea midline. No JVD. CARDIOVASCULAR: Regular rate and rhythm. no rubs murmurs gallops RESPIRATORY: No accessory muscle use. Clear to auscultation. Breath sounds equal bilaterally. diminished in bases GASTROINTESTINAL: Abdomen soft, non-tender, nondistended. Hepatic and splenic margins not palpable. MUSCULOSKELETAL: Extremities without clubbing, cyanosis, or edema. No obvious deformities. NEUROLOGICAL: Awake and alert. left arm 3/5, left leg 4/5 PSYCHIATRIC: Appropriate mood and affect; insight and judgment normal. Labs: Laboratory Results - last 12 hr 04/14/18 04/14/18 04/14/18 21:19 21:20 23:05 WBC RBC Hgb Hct MCV MCH MCHC RDW Plt Count MPV APTT Sodium Potassium Chloride Carbon Dioxide Anion Gap BUN Creatinine Estimated GFR POC Glucose 95 105 113 H Random Glucose Calcium Magnesium 04/14/18 04/15/18 04/15/18 23:19 01:07 03:07 WBC RBC Hgb Hct MCV MCH MCHC RDW Plt Count MPV APTT 40.4 H Sodium Potassium Chloride Carbon Dioxide Anion Gap BUN Creatinine Estimated GFR POC Glucose 97 122 H Random Glucose Calcium Magnesium 04/15/18 04/15/18 04/15/18 04:54 04:54 04:54 WBC 12.8 H RBC 3.33 L Hgb 10.5 L D Hct 31.4 L MCV 94.1 MCH 31.6 MCHC 33.6 RDW 13.6 Plt Count 163 MPV 8.3 APTT 43.0 H Sodium 144 Potassium 3.8 Chloride 110 H Carbon Dioxide 26.8 Anion Gap 7 BUN 19 H Creatinine 1.34 H Estimated GFR 56 L POC Glucose Random Glucose 81 Calcium 7.8 L D Magnesium 2.0 Result Diagrams: 04/15/18 04:54 04/15/18 04:54 - Plan (1) Severe left ventricular systolic dysfunction Plan: will need mendel, eval for Life vest prior to discharge (3) Left ventricular apical thrombus Plan: on heparin acute MCA stroke, s/p thrombectomy/ on Heparin gtt s/p AVR tissue valve pt/ ot speech OOB with assist pulm toileting
--- NOTE | 2018-04-15 09:44 | US ---
EXAM DATE: 04/15/2018 9:16 AM EDT AGE/SEX: 52 years / Male INDICATIONS: Edema. CLINICAL DATA: This is the patient's initial encounter. Patient reports that signs and symptoms have been present for 2 days and indicates a pain score of 1/10. MEDICAL/SURGICAL HISTORY: . Aortic valve regurgitation. Palpitations. None. COMPARISON: No prior exams available for comparison. TECHNIQUE: Venous ultrasound of both lower extremities was performed from the inguinal ligament to t he proximal calf. Real-time, color Doppler and spectral tracing, compression and augmentation techni ques were used. FINDINGS: Right Leg: Normal compression of the deep venous system from the inguinal region to the proximal ángel f. No echogenic clot is seen. Normal response of the venous system to augmentation and respiration. Left Leg: Normal compression of the deep venous system from the inguinal region to the proximal calf . No echogenic clot is seen. Normal response of the venous system to augmentation and respiration. Other: None. CONCLUSION: 1. No DVT identified. Electronically signed by: Andrew Palafox MD 04/15/2018 9:42 AM EDT
--- NOTE | 2018-04-15 10:08 | CT ---
EXAM DATE: 04/15/2018 9:36 AM EDT AGE/SEX: 52 years / Male INDICATIONS: Follow up stroke. CLINICAL DATA: This is the patient's subsequent encounter. Patient reports that signs and symptoms h ave been present for 2 days and indicates a pain score of 0/10. MEDICAL/SURGICAL HISTORY: Cardiovascular disease. CABG. RADIATION DOSE: 56.35 CTDI (mGy) COMPARISON: C, CTA HEAD W CONTRAST W 3D, 04/14/2018. . TECHNIQUE: CT of the head without contrast. Using automated exposure control and adjustment of the mA and/or kV according to patient size, radiation dose was kept as low as reasonably achievable to ob tain optimal diagnostic quality images. DICOM format image data is available electronically for revi ew and comparison. FINDINGS: Cerebrum: Low density noted throughout the right basal ganglia and involving the anterior temporal l obe with mild associated edema effacing the anterior horn of the right lateral ventricle. No signific ant midline shift or intercurrent hemorrhage. Remaining rosario-white differentiation is preserved. Vent ricles are otherwise within normal limits. Posterior Fossa: The cerebellum and brainstem are intact. The 4th ventricle is midline. The cerebe llopontine angle is unremarkable. Extracranial: The visualized portion of the orbits is intact. Skull: The calvaria is intact. No evidence of skull fracture. CONCLUSION: 1. Findings consistent with evolving right basal ganglia and limited right temporal lobe infarction. 2. Minimal edema and mass effect on the right lateral ventricle. 3. No intercurrent hemorrhage. . Electronically signed by: Leon Tucker MD 04/15/2018 10:07 AM EDT
[2018-04-15] MEDS: Senna/Docusate Sodium 8.6/50 MG Tablet PO SCH ×2 (10:24→20:43)
[2018-04-15] MEDS: Insulin NovoLOG Aspart Correctional Sugar Inj SQ SCH ×4 (10:25→23:18)
[2018-04-15] MEDS: Amiodarone 200 MG Tablet PO SCH ×2 (10:25→20:43)
[2018-04-15] MEDS: Heparin Drip 25,000 UNIT/250 ML BAG IV.CONT PRN (11:44)
--- NOTE | 2018-04-15 12:08 | P.DIET ---
Nutritional Evaluation Screening comments: MDC for diet education s/p AVR on 04/14 received. Patient Navigator to provide education. Consult RD if complexities with diet education arise.
--- NOTE | 2018-04-15 12:46 | ECG ---
Date Performed: 04/15/2018 Time Performed: 03:58:42 PTAGE: 52 years EKG: Sinus rhythm Prolonged QT interval Leftward axis LVH with secondary repolarization abnormality Nonspecific ST and T wave abnormalities Abnormal ECG Prior EKG has marked artifact and I cannot compare. PREVIOUS TRACING : 04/14/2018 13.38 DOCTOR: Rene Adkins Interpretating Date/Time 04/15/2018 12:45:00
--- NOTE | 2018-04-15 13:09 | P.PNNEU ---
Subjective Subjective Comments: s/p thrombectomy of right M1 thrombus. No new neurologic sx. Active Medications: Active Medications Acetaminophen (Tylenol) 650 mg PO Q4H PRN PRN Reason: FEVER > 101 F Hydrocodone Bitart/Acetaminophen (Mccool 5/325) 1 tab PO Q3H PRN PRN Reason: PAIN SCALE 1 TO 5 Al Hydroxide/Mg Hydroxide (Milk Of Magnesia Liq) 30 ml PO Q12H PRN PRN Reason: Mild Constipation Al Hydroxide/Mg Hydroxide (Milk Of Magnesia Liq) 30 ml PO DAILY [facility] Albuterol (Duoneb Neb (Prn)) 1 ampul NEB Q2HR NEB PRN PRN Reason: WHEEZING Albuterol (Duoneb Neb (Nahun)) 1 ampul NEB Q6HR NEB [facility] Last Admin: 04/15/18 10:08 Dose: 1 ampul Albuterol (Duoneb Neb (Nahun)) 1 ampul NEB Q6HR WHILE AWAKE NEB [facility] Stop: 04/17/18 13:59 Amiodarone HCl (Cordarone) 200 mg PO Q12HR [facility] Last Admin: 04/15/18 10:25 Dose: 200 mg Bisacodyl (Dulcolax Supp) 10 mg RECTAL PRN PRN PRN Reason: SEE LABEL COMMENTS Chlorhexidine Gluconate (Hibiclens 4% Topical) 1 applicatio TOPICAL SHIPPING RECEIVING CLERK [facility] Stop: 04/16/18 16:24 Chlorhexidine Gluconate (Chlorhexidine 2% Cloth) 3 pack TOPICAL SHIPPING RECEIVING CLERK [facility] Stop: 04/16/18 22:35 Sodium Chloride 500 ml/ (Cefazolin Sodium 500 mg) 0 ml IRRIGATION SHIPPING RECEIVING CLERK [facility] Stop: 04/16/18 16:27 Dextrose (D50w Vial) 50 ml IV.PUSH UNSCH PRN PRN Reason: PER HYPOGLYCEMIA PROTOCOL Dextrose (D50w Vial) 50 ml IV.PUSH UNSCH PRN PRN Reason: PER HYPOGLYCEMIA PROTOCOL Docusate Sodium (Colace) 100 mg PO BID [facility] Glucagon (Glucagon Inj) 1 mg OTHER PRN PRN PRN Reason: For hypoglycemia Sodium Chloride (Ns Inj) 1,000 mls @ 100 mls/hr IV.CONT .Q10H [facility] Last Admin: 04/15/18 03:41 Dose: Not Given Insulin Human Regular 100 unit (/ Sodium Chloride) 100 mls @ 3 mls/hr IV.CONT TITRATE PRN; Protocol PRN Reason: See Protocol Last Titration: 04/15/18 03:32 Dose: 6 units/hr, 6 mls/hr Cefazolin Sodium 2,000 mg/ (Sodium Chloride) 100 mls @ 200 mls/hr IV.SIG SHIPPING RECEIVING CLERK [facility] Stop: 04/16/18 16:27 Lactated Ringer's (Lr 1000 Ml Inj) 1,000 mls @ 30 mls/hr IV.SIG .Q24H [facility] Stop: 04/16/18 22:35 Last Admin: 04/14/18 22:01 Dose: Not Given Sodium Chloride (Ns Inj) 500 mls @ 30 mls/hr IV.SIG .Q10H [facility] Stop: 04/16/18 22:35 Cefazolin Sodium 2,000 mg/ (Sodium Chloride) 100 mls @ 200 mls/hr IV.SIG Q8H [facility] Stop: 04/16/18 04:29 Last Infusion: 04/15/18 12:41 Dose: Infused Magnesium Sulfate Inj 2 gm/ (Sodium Chloride) 100 mls @ 50 mls/hr IV.SIG PRN PRN PRN Reason: SEE LABEL COMMENTS Last Infusion: 04/15/18 08:45 Dose: Infused Magnesium Sulfate Inj 2 gm/ (Sodium Chloride) 100 mls @ 50 mls/hr IV.SIG PRN PRN PRN Reason: SEE LABEL COMMENTS Potassium Chloride (Kcl 20 Meq Premix Inj) 20 meq in 100 mls @ 50 mls/hr IV.SIG PRN PRN PRN Reason: SEE LABEL COMMENTS Last Infusion: 04/15/18 08:45 Dose: Infused Potassium Chloride (Kcl 20 Meq Premix Inj) 20 meq in 100 mls @ 50 mls/hr IV.SIG PRN PRN PRN Reason: SEE LABEL COMMENTS Potassium Chloride (Kcl 20 Meq Premix Inj) 20 meq in 100 mls @ 50 mls/hr IV.SIG PRN PRN PRN Reason: SEE LABEL COMMENTS Dopamine HCl/Dextrose (Dopamine 800 Mg/500 Ml Premix) 800 mg in 500 mls @ 11.869 mls/hr IV.CONT TITRATE PRN; Protocol PRN Reason: Per Protocol Epoprostenol Sodium 35 ml/ (Sodium Chloride) 100 mls @ 8 mls/hr NEB Q8H [facility] Last Admin: 04/15/18 06:12 Dose: Not Given Norepinephrine Bitartrate (Levophed-Dextrose 4 Mg/250 Ml Drip) 4 mg in 250 mls @ 7.5 mls/hr IV.SIG TITRATE PRN; Protocol PRN Reason: Per Protocol Last Titration: 04/15/18 01:08 Dose: 0 mcg/min, 0 mls/hr Propofol (Diprivan 1000 Mg/100 Ml Inj) 1,000 mg in 100 mls @ 3.165 mls/hr IV.CONT TITRATE PRN; Protocol PRN Reason: Per Protocol Last Titration: 04/14/18 22:01 Dose: 0 mcg/kg/min, 0 mls/hr Insulin Aspart (Novolog Insulin Correctional Sugar Inj) 1 unit SQ 02,06,10,14, 18,22 [facility]; Protocol Last Admin: 04/15/18 10:25 Dose: 1 unit Ketorolac Tromethamine (Toradol Inj) 15 mg IV.PUSH Q6H PRN PRN Reason: SEE LABEL COMMENTS Stop: 04/16/18 12:22 Last Admin: 04/15/18 12:28 Dose: 15 mg Metoprolol Tartrate (Lopressor) 12.5 mg PO SHIPPING RECEIVING CLERK [facility] Stop: 04/16/18 16:27 Last Admin: 04/14/18 05:24 Dose: 12.5 mg Metoprolol Tartrate (Lopressor Inj) 2.5 mg IV.PUSH Q1H PRN PRN Reason: SEE LABEL COMMENTS Multivitamins/Minerals (Theragran-M) 1 tab PO DAILY [facility] Ondansetron HCl (Zofran Inj) 4 mg IV.PUSH Q6H PRN PRN Reason: NAUSEA OR VOMITING Ondansetron HCl (Zofran Inj) 4 mg IV.PUSH Q6H PRN PRN Reason: NAUSEA OR VOMITING Pantoprazole Sodium (Protonix) 40 mg PO DAILY@06 [facility] Last Admin: 04/15/18 06:11 Dose: 40 mg Polyethylene Glycol (Miralax) 17 gm PO DAILY [facility] Potassium Chloride (K-Dur) 20 meq PO UNSCH PRN PRN Reason: SEE LABEL COMMENTS Potassium Chloride (K-Dur) 40 meq PO UNSCH PRN PRN Reason: SEE LABEL COMMENTS Povidone Iodine (Betadine 5% Antisepsis Kit) 1 applicatio EACH NARE SHIPPING RECEIVING CLERK [facility] Stop: 04/16/18 22:35 Senna/Docusate Sodium (Lizett-Colace) 1 tab PO BID [facility] Last Admin: 04/15/18 10:24 Dose: 1 tab Sennosides (Senokot) 17.2 mg PO Q12H PRN PRN Reason: Moderate Constipation Sennosides (Senokot) 8.6 mg PO HS [facility] Sodium Biphosphate/Sodium Phosphate (Fleets Enema (Adult)) 118 ml RECTAL UNSCH PRN PRN Reason: SEE LABEL COMMENTS Sodium Chloride (Ns Flush) 2 ml IV.FLUSH PRN PRN PRN Reason: FLUSH AFTER USING IV ACCESS Sodium Chloride (Ns Flush) 2 ml IV.FLUSH BID [facility] Last Admin: 04/15/18 10:25 Dose: 2 ml Sodium Chloride (Ns Flush) 2 ml IV.FLUSH PRN PRN PRN Reason: FLUSH AFTER USING IV ACCESS Sodium Chloride (Ns Flush) 2 ml IV.FLUSH BID [facility] Last Admin: 04/15/18 10:11 Dose: Not Given Terbutaline Sulfate (Brethine Inj) 1 mg SQ ONCE PRN PRN Reason: Extravasation Terbutaline Sulfate (Brethine Inj) 1 mg SQ UNSCH PRN PRN Reason: For Extravasation Allergies/Adverse Reactions: Allergies Allergy/AdvReac Type Severity Reaction Status Date / Time tree and shrub pollen Allergy Intermediate itchy rash Verified 04/10/18 07:48 poison oak extract Allergy Swelling Verified 04/10/18 07:47 of Lip/Tongue/Throat Physical Exam Vital signs: Vital Signs 04/14/18 13:33 04/14/18 15:42 04/14/18 15:54 Temperature 98.3 F Pulse Rate 47 L 64 Respiratory Rate 16 18 18 Blood Pressure 117/65 Pulse Oximetry 97 98 04/14/18 16:39 04/14/18 17:10 04/14/18 17:30 Temperature Pulse Rate 63 Respiratory Rate Blood Pressure Pulse Oximetry 99 98 04/14/18 18:23 04/14/18 19:00 04/14/18 19:45 Temperature 99.1 F Pulse Rate 59 L Respiratory Rate 16 12 Blood Pressure 124/68 Pulse Oximetry 99 99 98 04/14/18 20:30 04/14/18 21:45 04/14/18 22:01 Temperature Pulse Rate 61 Respiratory Rate 14 Blood Pressure Pulse Oximetry 97 97 04/14/18 23:05 04/14/18 23:15 04/14/18 23:20 Temperature 99.0 F Pulse Rate 64 Respiratory Rate 21 21 Blood Pressure 115/63 Pulse Oximetry 97 94 L 99 04/15/18 03:32 04/15/18 03:40 04/15/18 07:00 Temperature 98.8 F 97.8 F Pulse Rate 60 72 82 Respiratory Rate 15 24 18 Blood Pressure 110/65 130/64 Pulse Oximetry 94 L 98 04/15/18 08:39 04/15/18 09:52 04/15/18 10:11 Temperature Pulse Rate 81 Respiratory Rate 18 Blood Pressure Pulse Oximetry 93 L 98 04/15/18 11:00 04/15/18 12:58 Temperature 97.9 F Pulse Rate 84 Respiratory Rate 20 20 Blood Pressure 113/73 Pulse Oximetry 97 Intake & Output 04/14/18 04/15/18 04/15/18 18:59 06:59 18:59 Intake Total 4260 / 4260 600 / 600 650 / 650 Output Total 3415 / 3415 850 / 850 Balance 845 / 845 -250 / -250 650 / 650 Weight 110 kg Intake: IV 1260 / 1260 400 / 400 650 / 650 Heparin/D5W 25,000 U/250 mL 25, 250 / 250 000 unit In 250 ml @ 1,200 UNITS/HR 12 mls/hr IV.CONT TITRATE PRN Rx#:[id number] Ofirmev Inj 1,000 mg In 100 ml 100 / 100 200 / 200 100 / 100 @ 400 mls/hr IV.SIG Q6H [facility] Rx# :[id number] Calcium Chloride Inj 1 GM In NS 110 / 110 Inj 100 ML @ 100 mls/hr IV.SIG PRN PRN Rx#:[id number] LR 1000 mL Inj 1,000 ML @ 30 1000 / 1000 0 / 0 mls/hr IV.SIG .Q24H [facility] Rx#: [id number] Magnesium Sulfate Inj 2 GM In 100 / 100 NS Inj 96 ML @ 50 mls/hr IV.SIG PRN PRN Rx#:[id number] KCl 20 mEq Premix Inj 20 meq In 100 / 100 100 ml @ 50 mls/hr IV.SIG PRN PRN Rx#:[id number] Ancef 2 GM Premix Inj 2 gm In 50 / 50 50 ml @ 0 mls/hr IV.SIG .STK- MED ONE Rx#:[id number] Ancef Inj 2,000 MG In NS Inj 80 200 / 200 100 / 100 ML @ 200 mls/hr IV.SIG Q8H [facility] Rx#:[id number] Oral 200 / 200 Anesthesia Amount 3000 / 3000 Output: Estimated Blood Loss 2000 / 2000 Urine Amount (Catheter) 1125 / 1125 500 / 500 Indwelling Temp Sensing 1125 / 1125 500 / 500 Catheter Gastric Drainage 50 / 50 Oral Orogastric Tube 50 / 50 Chest Tube Drainage 240 / 240 350 / 350 #1 240 / 240 350 / 350 Other: Date of Last Bowel Movement 04/13/18 04/13/18 - Routine Neurological Exam lethargic but arouses easily and follows commands. Speech is fluent with moderate dysarthria CN --PERRL. Mild left upper motor neuron CN 7 palsey MOTOR--1/5 proximal LUE, 2/5 distal LUE. 3/5 LLE 5/5 RUE and RLE - Urinary Catheter Management Indwelling Temp Sensing Catheter Cath placed during this visit: yes Reason for continuing: Hourly intake/output Insertion date: 04/14/18 Insertion time: 08:00 Objective Radiology Results: CT brain today shows area of low attenuation in right hemisphere involving basal ganglia with surrounding edema and mild to moderate mass effect. No hemorrhage is seen. Laboratory Results - last 24 hr 04/13/18 04/14/18 04/14/18 00:53 13:37 13:37 WBC 22.2 H D RBC 4.02 L Hgb 12.5 L POC Hgb (Calc) Hct 38.3 L POC Hct MCV 95.2 MCH 31.1 MCHC 32.7 RDW 14.1 Plt Count 153 D MPV 8.8 Prelim Diff (Auto) Slide review pending Neut % (Auto) 90.8 H Lymph % (Auto) 3.0 L [place] % (Auto) 5.7 Eos % (Auto) 0.3 Baso % (Auto) 0.2 Neut # (Auto) 20.2 H Lymph # (Auto) 0.7 L [place] # (Auto) 1.3 H Eos # (Auto) 0.1 Baso # (Auto) 0.0 WBC Differential Manual diff final Seg Neuts % (Manual) 80 H Band Neuts % (Manual) 10 H Lymphocytes % (Manual) 4 L Monocytes % (Manual) 4 Eosinophils % (Manual) 1 Promyelocytes % (Man) 1 H Abs Neuts (Manual) 20.2 H Differential Comment . Platelet Estimate Normal Platelet Morphology Normal PT 13.5 H INR 1.3 APTT 28.5 Fibrinogen 187 L POC Sodium Sodium POC Potassium Potassium POC Chloride Chloride Carbon Dioxide Anion Gap POC BUN BUN Creatinine POC Creatinine Estimated GFR POC Glucose Random Glucose Calcium Magnesium Total Creatine Kinase Troponin I Blood Type A Positive Antibody Screen Negative MTS Gel Crossmatch See Detail Bld Prod Order Comment 04/14/18 04/14/18 04/14/18 13:37 17:50 17:50 WBC RBC Hgb POC Hgb (Calc) 11.6 L Hct POC Hct 34.0 L MCV MCH MCHC RDW Plt Count MPV Prelim Diff (Auto) Neut % (Auto) Lymph % (Auto) [place] % (Auto) Eos % (Auto) Baso % (Auto) Neut # (Auto) Lymph # (Auto) [place] # (Auto) Eos # (Auto) Baso # (Auto) WBC Differential Seg Neuts % (Manual) Band Neuts % (Manual) Lymphocytes % (Manual) Monocytes % (Manual) Eosinophils % (Manual) Promyelocytes % (Man) Abs Neuts (Manual) Differential Comment Platelet Estimate Platelet Morphology PT 13.0 H INR 1.3 APTT 44.0 H D Fibrinogen POC Sodium 139 Sodium POC Potassium 4.7 Potassium POC Chloride 103 Chloride Carbon Dioxide Anion Gap POC BUN 13 BUN Creatinine POC Creatinine 1.1 Estimated GFR POC Glucose 163 H Random Glucose Calcium Magnesium Total Creatine Kinase 203 Troponin I 5.26 H* Blood Type Antibody Screen MTS Gel Crossmatch Bld Prod Order Comment 04/14/18 04/14/18 04/14/18 17:56 19:04 19:49 WBC RBC Hgb POC Hgb (Calc) Hct POC Hct MCV MCH MCHC RDW Plt Count MPV Prelim Diff (Auto) Neut % (Auto) Lymph % (Auto) [place] % (Auto) Eos % (Auto) Baso % (Auto) Neut # (Auto) Lymph # (Auto) [place] # (Auto) Eos # (Auto) Baso # (Auto) WBC Differential Seg Neuts % (Manual) Band Neuts % (Manual) Lymphocytes % (Manual) Monocytes % (Manual) Eosinophils % (Manual) Promyelocytes % (Man) Abs Neuts (Manual) Differential Comment Platelet Estimate Platelet Morphology PT INR APTT Fibrinogen POC Sodium Sodium POC Potassium Potassium POC Chloride Chloride Carbon Dioxide Anion Gap POC BUN BUN Creatinine POC Creatinine Estimated GFR POC Glucose 110 113 H 145 H Random Glucose Calcium Magnesium Total Creatine Kinase Troponin I Blood Type Antibody Screen MTS Gel Crossmatch Bld Prod Order Comment 04/14/18 04/14/18 04/14/18 21:19 21:20 23:05 WBC RBC Hgb POC Hgb (Calc) Hct POC Hct MCV MCH MCHC RDW Plt Count MPV Prelim Diff (Auto) Neut % (Auto) Lymph % (Auto) [place] % (Auto) Eos % (Auto) Baso % (Auto) Neut # (Auto) Lymph # (Auto) [place] # (Auto) Eos # (Auto) Baso # (Auto) WBC Differential Seg Neuts % (Manual) Band Neuts % (Manual) Lymphocytes % (Manual) Monocytes % (Manual) Eosinophils % (Manual) Promyelocytes % (Man) Abs Neuts (Manual) Differential Comment Platelet Estimate Platelet Morphology PT INR APTT Fibrinogen POC Sodium Sodium POC Potassium Potassium POC Chloride Chloride Carbon Dioxide Anion Gap POC BUN BUN Creatinine POC Creatinine Estimated GFR POC Glucose 95 105 113 H Random Glucose Calcium Magnesium Total Creatine Kinase Troponin I Blood Type Antibody Screen MTS Gel Crossmatch Bld Prod Order Comment 04/14/18 04/15/18 04/15/18 23:19 01:07 03:07 WBC RBC Hgb POC Hgb (Calc) Hct POC Hct MCV MCH MCHC RDW Plt Count MPV Prelim Diff (Auto) Neut % (Auto) Lymph % (Auto) [place] % (Auto) Eos % (Auto) Baso % (Auto) Neut # (Auto) Lymph # (Auto) [place] # (Auto) Eos # (Auto) Baso # (Auto) WBC Differential Seg Neuts % (Manual) Band Neuts % (Manual) Lymphocytes % (Manual) Monocytes % (Manual) Eosinophils % (Manual) Promyelocytes % (Man) Abs Neuts (Manual) Differential Comment Platelet Estimate Platelet Morphology PT INR APTT 40.4 H Fibrinogen POC Sodium Sodium POC Potassium Potassium POC Chloride Chloride Carbon Dioxide Anion Gap POC BUN BUN Creatinine POC Creatinine Estimated GFR POC Glucose 97 122 H Random Glucose Calcium Magnesium Total Creatine Kinase Troponin I Blood Type Antibody Screen MTS Gel Crossmatch Bld Prod Order Comment 04/15/18 04/15/18 04/15/18 04:54 04:54 04:54 WBC 12.8 H RBC 3.33 L Hgb 10.5 L D POC Hgb (Calc) Hct 31.4 L POC Hct MCV 94.1 MCH 31.6 MCHC 33.6 RDW 13.6 Plt Count 163 MPV 8.3 Prelim Diff (Auto) Neut % (Auto) Lymph % (Auto) [place] % (Auto) Eos % (Auto) Baso % (Auto) Neut # (Auto) Lymph # (Auto) [place] # (Auto) Eos # (Auto) Baso # (Auto) WBC Differential Seg Neuts % (Manual) Band Neuts % (Manual) Lymphocytes % (Manual) Monocytes % (Manual) Eosinophils % (Manual) Promyelocytes % (Man) Abs Neuts (Manual) Differential Comment Platelet Estimate Platelet Morphology PT INR APTT 43.0 H Fibrinogen POC Sodium Sodium 144 POC Potassium Potassium 3.8 POC Chloride Chloride 110 H Carbon Dioxide 26.8 Anion Gap 7 POC BUN BUN 19 H Creatinine 1.34 H POC Creatinine Estimated GFR 56 L POC Glucose Random Glucose 81 Calcium 7.8 L D Magnesium 2.0 Total Creatine Kinase Troponin I Blood Type Antibody Screen MTS Gel Crossmatch Bld Prod Order Comment 04/15/18 10:06 WBC RBC Hgb POC Hgb (Calc) Hct POC Hct MCV MCH MCHC RDW Plt Count MPV Prelim Diff (Auto) Neut % (Auto) Lymph % (Auto) [place] % (Auto) Eos % (Auto) Baso % (Auto) Neut # (Auto) Lymph # (Auto) [place] # (Auto) Eos # (Auto) Baso # (Auto) WBC Differential Seg Neuts % (Manual) Band Neuts % (Manual) Lymphocytes % (Manual) Monocytes % (Manual) Eosinophils % (Manual) Promyelocytes % (Man) Abs Neuts (Manual) Differential Comment Platelet Estimate Platelet Morphology PT INR APTT Fibrinogen POC Sodium Sodium POC Potassium Potassium POC Chloride Chloride Carbon Dioxide Anion Gap POC BUN BUN Creatinine POC Creatinine Estimated GFR POC Glucose 182 H Random Glucose Calcium Magnesium Total Creatine Kinase Troponin I Blood Type Antibody Screen MTS Gel Crossmatch Bld Prod Order Comment Review/Management - Diagnosis (1) CVA (cerebral vascular accident) Code(s): I63.9 - Cerebral infarction, unspecified Status: Acute Current Visit: Yes - Review/Management Plan: Because of size of the infarction and surrounding edema with mass effect, recommend stopping iv heparin due to risk of hemorrhagic conversion of the stroke. Continue asa but increase to [address] early next week and consider resuming anticoagulation if edema is decreasing.
[2018-04-15] MEDS: Docusate Sodium 100 MG Capsule PO SCH (20:44)
[2018-04-16] MEDS: ceFAZolin Inj 2,000 MG in Sodium Chlor 0.9% Inj 80 ML IV.SIG SCH (03:28)
[2018-04-16] MEDS: Insulin NovoLOG Aspart Correctional Sugar Inj SQ SCH ×6 (03:29→22:58)
[2018-04-16 04:34] LABS: Baso % (Auto) 0.2 % (0.0-2.0); Eos # (Auto) 0.1 th/mm3 (0.0-0.4); Eos % (Auto) 0.6 % (0.0-4.0); Hematocrit 22.7 % (39.0-51.0); Hemoglobin 7.7 gm/dL (13.0-17.0); Lymph % (Auto) 7.8 % (9.0-44.0); Mean Corpuscular HGB Conc 33.8 % (32.0-36.0); Mean Corpuscular Volume 94.5 fL (80.0-100.0); Mean Platelet Volume 8.3 fL (7.0-11.0); Mono # (Auto) 1.8 th/mm3 (0.0-0.9); Mono % (Auto) 14.1 % (0.0-8.0); Neut # (Auto) 9.8 th/mm3 (1.8-7.7); Neut % (Auto) 77.3 % (16.0-70.0); Platelet Count 130 th/mm3 (150-450); Red Cell Distribution Width 13.9 % (11.6-17.2); White Blood Count 12.7 th/mm3 (4.0-11.0)
[2018-04-16 04:49] LABS: Activated Partial Thrombo Time 23.6 sec (24.3-30.1); INR 1.3 Ratio
[2018-04-16 04:57] LABS: Calcium 7.6 mg/dL (8.5-10.1); Magnesium 1.8 mg/dL (1.5-2.5)
[2018-04-16] MEDS: Ketorolac Inj 30 MG/ML (IVP) Vial IV.PUSH PRN (06:15)
[2018-04-16] MEDS: Potassium Chlor 20 mEq Premix 20 MEQ/100 ML PIGGYBACK IV.SIG PRN (08:25)
[2018-04-16] MEDS: Magnesium Sulfate Inj 2 GM in Sodium Chlor 0.9% Inj 96 ML IV.SIG PRN (08:27)
[2018-04-16] MEDS: Senna/Docusate Sodium 8.6/50 MG Tablet PO SCH ×2 (08:28→20:52)
[2018-04-16] MEDS: Aspirin 325 MG Tablet PO SCH (08:28)
[2018-04-16] MEDS: Multivitamin/Minerals Therapeutic Tablet PO SCH (08:28)
[2018-04-16] MEDS: Amiodarone 200 MG Tablet PO SCH ×2 (08:29→20:52)
[2018-04-16] MEDS: Polyethylene Glycol 3350 17 GM Packet PO SCH (08:32)
[2018-04-16] MEDS: Docusate Sodium 100 MG Capsule PO SCH ×2 (08:32→20:53)
[2018-04-16] MEDS: Sod Chloride 0.9% Inj 1,000 ML IV.CONT SCH ×2 (08:37→20:53)
[2018-04-16] MEDS: Metoprolol Tartrate 25 MG Tablet PO SCH ×3 (10:53→20:52)
--- NOTE | 2018-04-16 12:57 | P.PNCV ---
- Note Subjective/Hospital Course: This 52-year-old male presented to the emergency room with shortness of breath without exertion for the last month. No syncope or chest pain, but the breathing has become worse over the past week. He has not seen a physician since 2008. He was seen in the past for fatigue and worked up for presyncope in 2005, was seen at that time by Dr. Calderon, was found to have some heart murmur , had an echo, was told he had some aortic valve involvement. The patient presented with a troponin of 0.41. However, the heart catheterization showed no evidence of coronary disease, possibly elevated due to critical aortic stenosis. He underwent also an echocardiogram which showed a valve area of 0.38 , with some trace tricuspid valve regurgitation, trace mitral valve regurgitation, pulmonary artery pressures of 29 mmHg, ejection fraction of 15%, diffuse global AP hypokinesis. There was also a small 12 x 14 mm, round mobile calcified apical left ventricular thrombus. We were consulted for aortic valve replacement. 04/11 The ECHO and angiographic findings were discussed in detail with the patient and his family. The option of mechanical versus tissue valve was discussed in detail as well as the advantages and disadvantages of both types of valves. He understands the provided information and wishes to opt for the tissue valve to avoid life-long anticoagulation therapy. The risks, complications including but not limited to bleeding, infection, stroke, myocardial injury and , and benefits of the surgical procedure were discussed in details and all questions answered. He understands the provided information and agrees to proceed with the planned operation. We will plan on proceeding with the surgical procedure as describe above on Saturday. Thank you for allowing me to participate in the care of this patient. surgery: 04/14 PREOPERATIVE DIAGNOSES 1. Critical Aortic Stenosis. 2. Severe Left Ventricular Dysfunction (EF 15%) 3. NSTEMI 4. Left Ventricular Apical Thrombus POSTOPERATIVE DIAGNOSES Same SURGICAL PROCEDURE Aortic Valve Replacement with a 29 mm Medtronic Mosaic Cinch Tissue valve. crystalloid 4000cc, cell saver 1000cc, EBL 2000cc stroke alert called 15 min after arrival to CVICU left sided weakness, left facial drooping stat CTA head showed acute right MCA stroke thrombectomy completed by IR, placed on Heparin gtt 04/15 Bp stable , low dose lasix given , follows commands , moving left arm and leg , left arm 3/5 left leg 4/5 left facial droop, follows commands consult OT/ speech / has PT / for repeat CT head this am will need coumadin keep in CVIVU for now 04/16 appreciate Neuro input, on full dose ASA, off Heparin gtt/ concern for conversion f/u CT brain next week if stable, then consider coumadin at that time has left peripheral vision neglect , left arm weakness 2-3/5 ambulated with 2 person assist start low dose BB , gentle diuresis , dc julian cath transfer to stepdown in am continue PT/OT speech / being evaluate for [facility] leave chest tube in today , thick bloody clots Objective: Vital Signs - 24 hr 04/15/18 12:58 04/15/18 14:55 04/15/18 15:00 Temperature 98.3 F Pulse Rate 84 Respiratory Rate 20 20 Blood Pressure 113/73 Pulse Oximetry 94 L 93 L 04/15/18 15:03 04/15/18 15:40 04/15/18 16:02 Temperature Pulse Rate 84 Respiratory Rate 18 Blood Pressure Pulse Oximetry 90 L 95 04/15/18 17:52 04/15/18 18:13 04/15/18 19:00 Temperature 97.7 F Pulse Rate 85 Respiratory Rate 36 H Blood Pressure 109/54 L Pulse Oximetry 91 L 92 L 97 04/15/18 20:05 04/15/18 23:00 04/16/18 03:00 Temperature 99.3 F 98.2 F Pulse Rate 89 80 75 Respiratory Rate 20 28 H 24 Blood Pressure 113/72 120/71 Pulse Oximetry 96 96 95 04/16/18 03:28 04/16/18 07:00 04/16/18 07:38 Temperature 98.4 F Pulse Rate 75 86 86 Respiratory Rate 18 20 18 Blood Pressure 132/72 Pulse Oximetry 94 L 94 L 04/16/18 11:00 Temperature 98.6 F Pulse Rate 97 H Respiratory Rate 20 Blood Pressure 120/58 L Pulse Oximetry 93 L GENERAL: A&O SKIN: Warm and dry. prevena dressing to chest HEAD: Atraumatic. Normocephalic. EYES: Pupils equal and round. No scleral icterus. No injection or drainage. ENT: No nasal bleeding or discharge. Mucous membranes pink and moist. NECK: Trachea midline. No JVD. CARDIOVASCULAR: Regular rate and rhythm. mild edema RESPIRATORY: No accessory muscle use. Clear to auscultation. Breath sounds equal bilaterally. diminished in bases / chest tube no air leak GASTROINTESTINAL: Abdomen soft, non-tender, nondistended. Hepatic and splenic margins not palpable. MUSCULOSKELETAL: Extremities without clubbing, cyanosis, or edema. No obvious deformities. NEUROLOGICAL: Awake and alert. left side weakness 2-3/5 LUE 4/5 LLE, some dysarthria PSYCHIATRIC: Appropriate mood and affect; Labs: Laboratory Results - last 12 hr 04/13/18 04/16/18 04/16/18 00:53 03:19 04:20 WBC RBC Hgb Hct MCV MCH MCHC RDW Plt Count MPV Neut % (Auto) Lymph % (Auto) [place] % (Auto) Eos % (Auto) Baso % (Auto) Neut # (Auto) Lymph # (Auto) [place] # (Auto) Eos # (Auto) Baso # (Auto) WBC Differential Differential Comment PT 13.0 H INR 1.3 APTT 23.6 L D Sodium Potassium Chloride Carbon Dioxide Anion Gap BUN Creatinine Estimated GFR POC Glucose 138 H Random Glucose Calcium Magnesium MTS Gel Crossmatch See Detail 04/16/18 04/16/18 04/16/18 04:20 04:20 10:20 WBC 12.7 H RBC 2.40 L Hgb 7.7 L D Hct 22.7 L MCV 94.5 MCH 32.0 MCHC 33.8 RDW 13.9 Plt Count 130 L MPV 8.3 Neut % (Auto) 77.3 H Lymph % (Auto) 7.8 L [place] % (Auto) 14.1 H Eos % (Auto) 0.6 Baso % (Auto) 0.2 Neut # (Auto) 9.8 H Lymph # (Auto) 1.0 [place] # (Auto) 1.8 H Eos # (Auto) 0.1 Baso # (Auto) 0.0 WBC Differential . Differential Comment Auto diff final PT INR APTT Sodium 140 Potassium 4.0 Chloride 106 Carbon Dioxide 26.0 Anion Gap 8 BUN 24 H Creatinine 1.44 H Estimated GFR 52 L POC Glucose 159 H Random Glucose 120 H Calcium 7.6 L Magnesium 1.8 MTS Gel Crossmatch Result Diagrams: 04/16/18 04:20 04/16/18 04:20 Telemetry: NSR - Plan (1) Severe left ventricular systolic dysfunction Plan: will need elias, eval for Life vest prior to discharge start ELIAS when creatinine improved (3) Left ventricular apical thrombus Plan: (5) S/P AVR Plan: on ASA, BB , gentle diuresis pulm toileting (6) Acute CVA (cerebrovascular accident) Plan: ASA, Neuro following PT/OT/ speech therapy eval for [place] [facility]
[2018-04-16] MEDS: Ferrous Sulfate 325 MG Tablet PO SCH ×2 (13:08→18:31)
--- NOTE | 2018-04-16 14:35 | P.PNCC ---
Subjective Subjective Remarks/Hospital Course: 04/14: 52-year-old male who was admitted with shortness of breath diagnosed to have a critical aortic stenosis as well as an apical LV thrombus by echo. He underwent cardiac catheterization by Dr. Anil Triplett and had essentially clean coronaries. Patient was evaluated by CT surgery Dr. Mirian Hernandez, and underwent aortic valve replacement on 04/14/2018 under general anesthesia following which he was transferred to CVICU. Critical care consult was requested by Dr. Hernandez for postop respiratory failure. I evaluated the patient immediately on being notified of the consult and CVICU. Patient was hypoxic initially with O2 sats in the 88% range which gradually improved with increasing PEEP on 100% FiO2. As patient started arousing from anesthesia it was noted that he was not moving his left upper and lower extremity however was able to follow commands with his right upper and lower extremity including squeezing my hands and bending his right knee, wiggling toes on the right foot. Embolic stroke was suspected with left hemiplegia and stroke alert was called. I immediately discussed the case with Dr. Hernandze as well as with Dr. Satinder Palafox from interventional radiology. I also spoke with Dr. Hernandez from neurology following stroke alert who evaluated patient in CT room. Patient was taken for head CT which was negative for any bleed. CTA was concerning for right MCA occlusion hence patient was taken to interventional radiology to attempt mechanical clot retrieval. Patient did receive half an amp of atropine for bradycardia as well as was started on Levophed for borderline blood pressures prior to transporting for CAT scan. 04/15: Successful mechanical clot retrieval from right MCA by IR yesterday. Extubated on 04/14, on facemask. Moving left side though weaker than right. Awake , alert, follows commands. 04/16: Awake and alert. On facemask O2. Diuresed with Lasix yesterday. Hemoglobin dropped to 7.7. Chest tube remains in place with decreasing drainage. Patient is awake and alert. He actually walk in the hallway today. Still has left-sided weakness in the upper extremity. Objective Vital Signs / I&O: Vital Signs 04/15/18 14:55 04/15/18 15:00 04/15/18 15:03 Temperature 98.3 F Pulse Rate 84 84 Respiratory Rate 20 18 Blood Pressure 113/73 Pulse Oximetry 94 L 93 L 04/15/18 15:40 04/15/18 16:02 04/15/18 17:52 Temperature Pulse Rate Respiratory Rate Blood Pressure Pulse Oximetry 90 L 95 91 L 04/15/18 18:13 04/15/18 19:00 04/15/18 20:05 Temperature 97.7 F Pulse Rate 85 89 Respiratory Rate 36 H 20 Blood Pressure 109/54 L Pulse Oximetry 92 L 97 96 04/15/18 23:00 04/16/18 03:00 04/16/18 03:28 Temperature 99.3 F 98.2 F Pulse Rate 80 75 75 Respiratory Rate 28 H 24 18 Blood Pressure 113/72 120/71 Pulse Oximetry 96 95 04/16/18 07:00 04/16/18 07:38 04/16/18 08:00 Temperature 98.4 F Pulse Rate 86 86 Respiratory Rate 20 18 Blood Pressure 132/72 Pulse Oximetry 94 L 94 L 94 L 04/16/18 11:00 Temperature 98.6 F Pulse Rate 97 H Respiratory Rate 20 Blood Pressure 120/58 L Pulse Oximetry 93 L Intake & Output 04/15/18 04/16/18 04/16/18 18:59 06:59 18:59 Intake Total 890 / 890 392 / 392 200 / 200 Output Total 845 / 845 560 / 560 Balance 45 / 45 -168 / -168 200 / 200 Weight 102 kg Intake: IV 650 / 650 392 / 392 200 / 200 Heparin/D5W 25,000 U/250 mL 25, 250 / 250 30 / 30 000 unit In 250 ml @ 1,200 UNITS/HR 12 mls/hr IV.CONT TITRATE PRN Rx#:[id number] NovoLIN R (IV Infusion) 100 32 / 32 UNIT In NS Inj 99 ML @ 3 UNITS/ HR 3 mls/hr IV.CONT TITRATE PRN Rx#:[id number] Diprivan 1000 mg/100 ml Inj 1, 130 / 130 000 mg In 100 ml @ 5 MCG/KG/MIN 3.165 mls/hr IV.CONT TITRATE PRN Rx#:[id number] Ofirmev Inj 1,000 mg In 100 ml 100 / 100 @ 400 mls/hr IV.SIG Q6H BORA Rx# :[id number] Magnesium Sulfate Inj 2 GM In 100 / 100 100 / 100 NS Inj 96 ML @ 50 mls/hr IV.SIG PRN PRN Rx#:[id number] KCl 20 mEq Premix Inj 20 meq In 100 / 100 100 / 100 100 ml @ 50 mls/hr IV.SIG PRN PRN Rx#:[id number] Ancef Inj 2,000 MG In NS Inj 80 100 / 100 200 / 200 ML @ 200 mls/hr IV.SIG Q8H BORA Rx#:[id number] Oral 240 / 240 Output: Urine Amount (Catheter) 465 / 465 560 / 560 Indwelling Temp Sensing 465 / 465 560 / 560 Catheter Chest Tube Drainage 380 / 380 #1 380 / 380 Other: Date of Last Bowel Movement 04/13/18 04/13/18 04/13/18 Result Diagrams: 04/16/18 04:20 04/16/18 04:20 Objective Remarks: HEENT/Neuro: Pallor present, no icterus, tongue moist, SANA, Awake alert oriented 3, speech is slightly slurred. Following commands. Moving all 4 extremities with grade 4 power in left upper and lower extremities which is a significant improvement compared to his initial eval on 04/14 in the immediate postop period With dense left hemiplegia Neck: No JVD Chest/pulmonary: On facemask O2, air entry decreased bilaterally at bases, scattered rhonchi, no wheezing Cardiovascular: S1-S2 regular no gallop or murmur. Wound VAC over sternotomy site. Chest tube in place. GI/abdomen: Soft, nontender, bowel sounds present Extremities: Warm bilaterally, no edema Assessment and Plan - Assessment and Plan Plan: 52-year-old male with: Critical aortic stenosis status post aortic valve replacement 04/14 Postop respiratory failure Embolic stroke with left hemiplegia LV thrombus Bradycardia Hypotension Plan: Neuro: Stroke alert called on 04/14 immediate postop period following arrival to CVICU. Head CT negative for bleed. CTA suggestive of right MCA territory occlusion following which patient taken for interventional radiology and successful mechanical clot retrieval from occluded M1 segment of right MCA performed. On aspirin preoperatively. Neurology consulted and following. On aspirin 325 mg daily. Heparin GTT stopped per neurology. Neurochecks per protocol. head CT on 04/15 shows right basal ganglia infarct with edema. Further recommendations per neurology. Cardiovascular: Status post aortic valve replacement postop day 2. Being followed by CT surgery Follow chest tube output. Off levophed. Pulmonary: Extubated on 04/14 night, requiring facemask O2. bronchodilators as needed. Postop chest x-ray shows well-expanded lung baez, cardiomegaly. GI/liver: Speech and swallow eval per stroke protocol. Advance p.o. diet as tolerated. Renal/: strict intake output, monitor and replete electrolyte, follow BUN/ creatinine. Lasix 20 mg IV to mobilize fluids ID: Periop antibiotic prophylaxis per CT surgery. Heme: Follow CBC and coags. Antiplatelet therapy/anticoagulation per neurology. On aspirin. Off heparin GTT. Drop in hemoglobin noted. Transfuse to keep hemoglobin above 7 g percent. Endocrine: SSI for glycemic control if needed. Prophylaxis: Protonix/SCDs. Subcu heparin/Lovenox when okay with CT surgery
--- NOTE | 2018-04-16 17:37 | P.PNNEU ---
Subjective Subjective Comments: moving left side better today Active Medications: Active Medications Acetaminophen (Tylenol) 650 mg PO Q4H PRN PRN Reason: FEVER > 101 F Hydrocodone Bitart/Acetaminophen ([place] 5/325) 1 tab PO Q3H PRN PRN Reason: PAIN SCALE 1 TO 5 Last Admin: 04/16/18 15:39 Dose: 1 tab Al Hydroxide/Mg Hydroxide (Milk Of Magnesia Liq) 30 ml PO Q12H PRN PRN Reason: Mild Constipation Al Hydroxide/Mg Hydroxide (Milk Of Magnesia Liq) 30 ml PO DAILY [facility] Last Admin: 04/16/18 08:32 Dose: 30 ml Albuterol (Duoneb Neb (Prn)) 1 ampul NEB Q2HR NEB PRN PRN Reason: WHEEZING Albuterol (Duoneb Neb (Nahun)) 1 ampul NEB Q6HR WHILE AWAKE NEB [facility] Stop: 04/17/18 13:59 Last Admin: 04/16/18 14:40 Dose: 1 ampul Amiodarone HCl (Cordarone) 200 mg PO Q12HR [facility] Last Admin: 04/16/18 08:29 Dose: 200 mg Aspirin (Aspirin) 325 mg PO DAILY [facility] Last Admin: 04/16/18 08:28 Dose: 325 mg Atorvastatin Calcium (Lipitor) 40 mg PO HS [facility] Bisacodyl (Dulcolax Supp) 10 mg RECTAL PRN PRN PRN Reason: SEE LABEL COMMENTS Dextrose (D50w Vial) 50 ml IV.PUSH UNSCH PRN PRN Reason: PER HYPOGLYCEMIA PROTOCOL Docusate Sodium (Colace) 100 mg PO BID [facility] Last Admin: 04/16/18 08:32 Dose: 100 mg Ferrous Sulfate (Ferosul) 325 mg PO BID@1200,1700 [facility] Last Admin: 04/16/18 13:08 Dose: 325 mg Glucagon (Glucagon Inj) 1 mg OTHER PRN PRN PRN Reason: For hypoglycemia Sodium Chloride (Ns Inj) 1,000 mls @ 100 mls/hr IV.CONT .Q10H [facility] Last Admin: 04/16/18 08:37 Dose: Not Given Insulin Human Regular 100 unit (/ Sodium Chloride) 100 mls @ 3 mls/hr IV.CONT TITRATE PRN; Protocol PRN Reason: See Protocol Last Titration: 04/15/18 21:29 Dose: Infused Lactated Ringer's (Lr 1000 Ml Inj) 1,000 mls @ 30 mls/hr IV.SIG .Q24H [facility] Stop: 04/16/18 22:35 Last Admin: 04/15/18 23:20 Dose: Not Given Sodium Chloride (Ns Inj) 500 mls @ 30 mls/hr IV.SIG .Q10H [facility] Stop: 04/16/18 22:35 Insulin Aspart (Novolog Insulin Correctional Sugar Inj) 0 unit SQ 02,06,10,14, 18,22 [facility]; Protocol Last Admin: 04/16/18 15:40 Dose: 3 unit Metoprolol Tartrate (Lopressor) 12.5 mg PO BID [facility] Last Admin: 04/16/18 10:56 Dose: 12.5 mg Miscellaneous (Pill Splitter) 1 each OTHER UNSCH [facility] Multivitamins/Minerals (Theragran-M) 1 tab PO DAILY [facility] Last Admin: 04/16/18 08:28 Dose: 1 tab Ondansetron HCl (Zofran Inj) 4 mg IV.PUSH Q6H PRN PRN Reason: NAUSEA OR VOMITING Ondansetron HCl (Zofran Inj) 4 mg IV.PUSH Q6H PRN PRN Reason: NAUSEA OR VOMITING Pantoprazole Sodium (Protonix) 40 mg PO DAILY@06 [facility] Last Admin: 04/16/18 06:16 Dose: 40 mg Polyethylene Glycol (Miralax) 17 gm PO DAILY [facility] Last Admin: 04/16/18 08:32 Dose: Not Given Senna/Docusate Sodium (Lizett-Colace) 1 tab PO BID [facility] Last Admin: 04/16/18 08:28 Dose: 1 tab Sennosides (Senokot) 17.2 mg PO Q12H PRN PRN Reason: Moderate Constipation Sennosides (Senokot) 8.6 mg PO HS [facility] Last Admin: 04/15/18 20:44 Dose: 8.6 mg Sodium Biphosphate/Sodium Phosphate (Fleets Enema (Adult)) 118 ml RECTAL UNSCH PRN PRN Reason: SEE LABEL COMMENTS Allergies/Adverse Reactions: Allergies Allergy/AdvReac Type Severity Reaction Status Date / Time tree and shrub pollen Allergy Intermediate itchy rash Verified 04/10/18 07:48 poison oak extract Allergy Swelling Verified 04/10/18 07:47 of Lip/Tongue/Throat Physical Exam Vital signs: Vital Signs 04/15/18 17:52 04/15/18 18:13 04/15/18 19:00 Temperature 97.7 F Pulse Rate 85 Respiratory Rate 36 H Blood Pressure 109/54 L Pulse Oximetry 91 L 92 L 97 04/15/18 20:05 04/15/18 23:00 04/16/18 03:00 Temperature 99.3 F 98.2 F Pulse Rate 89 80 75 Respiratory Rate 20 28 H 24 Blood Pressure 113/72 120/71 Pulse Oximetry 96 96 95 04/16/18 03:28 04/16/18 07:00 04/16/18 07:38 Temperature 98.4 F Pulse Rate 75 86 86 Respiratory Rate 18 20 18 Blood Pressure 132/72 Pulse Oximetry 94 L 94 L 04/16/18 08:00 04/16/18 11:00 04/16/18 14:41 Temperature 98.6 F Pulse Rate 97 H 85 Respiratory Rate 20 18 Blood Pressure 120/58 L Pulse Oximetry 94 L 93 L Intake & Output 04/15/18 04/16/18 04/16/18 18:59 06:59 18:59 Intake Total 890 / 890 392 / 392 200 / 200 Output Total 845 / 845 560 / 560 Balance 45 / 45 -168 / -168 200 / 200 Weight 102 kg Intake: IV 650 / 650 392 / 392 200 / 200 Heparin/D5W 25,000 U/250 mL 25, 250 / 250 30 / 30 000 unit In 250 ml @ 1,200 UNITS/HR 12 mls/hr IV.CONT TITRATE PRN Rx#:[id number] NovoLIN R (IV Infusion) 100 32 / 32 UNIT In NS Inj 99 ML @ 3 UNITS/ HR 3 mls/hr IV.CONT TITRATE PRN Rx#:[id number] Diprivan 1000 mg/100 ml Inj 1, 130 / 130 000 mg In 100 ml @ 5 MCG/KG/MIN 3.165 mls/hr IV.CONT TITRATE PRN Rx#:[id number] Ofirmev Inj 1,000 mg In 100 ml 100 / 100 @ 400 mls/hr IV.SIG Q6H NAHUN Rx# :[id number] Magnesium Sulfate Inj 2 GM In 100 / 100 100 / 100 NS Inj 96 ML @ 50 mls/hr IV.SIG PRN PRN Rx#:[id number] KCl 20 mEq Premix Inj 20 meq In 100 / 100 100 / 100 100 ml @ 50 mls/hr IV.SIG PRN PRN Rx#:[id number] Ancef Inj 2,000 MG In NS Inj 80 100 / 100 200 / 200 ML @ 200 mls/hr IV.SIG Q8H NAHUN Rx#:[id number] Oral 240 / 240 Output: Urine Amount (Catheter) 465 / 465 560 / 560 Indwelling Temp Sensing 465 / 465 560 / 560 Catheter Chest Tube Drainage 380 / 380 #1 380 / 380 Other: Date of Last Bowel Movement 04/13/18 04/13/18 04/13/18 - Routine Neurological Exam alert, follow commands, speech normal CN --left upper motor neuron CN 7, EOM intact MOTOR 4/5 LUE, 5-/5 LLE - Urinary Catheter Management Indwelling Temp Sensing Catheter Cath placed during this visit: yes Reason for continuing: Hourly intake/output Insertion date: 04/14/18 Insertion time: 08:00 Objective Laboratory Results - last 24 hr 04/13/18 04/15/18 04/15/18 00:53 18:22 20:16 WBC RBC Hgb Hct MCV MCH MCHC RDW Plt Count MPV Neut % (Auto) Lymph % (Auto) [place] % (Auto) Eos % (Auto) Baso % (Auto) Neut # (Auto) Lymph # (Auto) [place] # (Auto) Eos # (Auto) Baso # (Auto) WBC Differential Differential Comment PT INR APTT Sodium Potassium Chloride Carbon Dioxide Anion Gap BUN Creatinine Estimated GFR POC Glucose 174 H 184 H Random Glucose Calcium Magnesium MTS Gel Crossmatch See Detail 04/15/18 04/16/18 04/16/18 22:39 03:19 04:20 WBC RBC Hgb Hct MCV MCH MCHC RDW Plt Count MPV Neut % (Auto) Lymph % (Auto) [place] % (Auto) Eos % (Auto) Baso % (Auto) Neut # (Auto) Lymph # (Auto) [place] # (Auto) Eos # (Auto) Baso # (Auto) WBC Differential Differential Comment PT 13.0 H INR 1.3 APTT 23.6 L D Sodium Potassium Chloride Carbon Dioxide Anion Gap BUN Creatinine Estimated GFR POC Glucose 172 H 138 H Random Glucose Calcium Magnesium MTS Gel Crossmatch 04/16/18 04/16/18 04/16/18 04:20 04:20 10:20 WBC 12.7 H RBC 2.40 L Hgb 7.7 L D Hct 22.7 L MCV 94.5 MCH 32.0 MCHC 33.8 RDW 13.9 Plt Count 130 L MPV 8.3 Neut % (Auto) 77.3 H Lymph % (Auto) 7.8 L [place] % (Auto) 14.1 H Eos % (Auto) 0.6 Baso % (Auto) 0.2 Neut # (Auto) 9.8 H Lymph # (Auto) 1.0 [place] # (Auto) 1.8 H Eos # (Auto) 0.1 Baso # (Auto) 0.0 WBC Differential . Differential Comment Auto diff final PT INR APTT Sodium 140 Potassium 4.0 Chloride 106 Carbon Dioxide 26.0 Anion Gap 8 BUN 24 H Creatinine 1.44 H Estimated GFR 52 L POC Glucose 159 H Random Glucose 120 H Calcium 7.6 L Magnesium 1.8 MTS Gel Crossmatch 04/16/18 15:34 WBC RBC Hgb Hct MCV MCH MCHC RDW Plt Count MPV Neut % (Auto) Lymph % (Auto) [place] % (Auto) Eos % (Auto) Baso % (Auto) Neut # (Auto) Lymph # (Auto) [place] # (Auto) Eos # (Auto) Baso # (Auto) WBC Differential Differential Comment PT INR APTT Sodium Potassium Chloride Carbon Dioxide Anion Gap BUN Creatinine Estimated GFR POC Glucose 142 H Random Glucose Calcium Magnesium MTS Gel Crossmatch Review/Management - Diagnosis (1) CVA (cerebral vascular accident) Code(s): I63.9 - Cerebral infarction, unspecified Status: Acute Current Visit: Yes - Review/Management Plan: Continue asa but increase to [address] early next week and consider resuming anticoagulation if edema is decreasing.
[2018-04-17 04:51] LABS: Hematocrit 21.7 % (39.0-51.0); Hemoglobin 7.3 gm/dL (13.0-17.0); Mean Corpuscular HGB Conc 33.9 % (32.0-36.0); Mean Corpuscular Hemoglobin 31.8 pg (27.0-34.0); Mean Platelet Volume 8.4 fL (7.0-11.0); Platelet Count 141 th/mm3 (150-450); Red Blood Count 2.31 mil/mm3 (4.50-5.90); Red Cell Distribution Width 13.8 % (11.6-17.2)
[2018-04-17 05:01] LABS: INR 1.1 Ratio; Prothrombin Time 11.1 sec (9.8-11.6)
[2018-04-17 05:45] LABS: Calcium 7.9 mg/dL (8.5-10.1)
[2018-04-17] MEDS: Sod Chloride 0.9% Inj 1,000 ML IV.CONT SCH ×2 (06:22→15:12)
[2018-04-17] MEDS: Docusate Sodium 100 MG Capsule PO SCH ×2 (08:44→21:10)
[2018-04-17] MEDS: Multivitamin/Minerals Therapeutic Tablet PO SCH (08:45)
[2018-04-17] MEDS: Metoprolol Tartrate 25 MG Tablet PO SCH ×2 (08:45→21:09)
[2018-04-17] MEDS: Amiodarone 200 MG Tablet PO SCH ×2 (08:45→21:09)
[2018-04-17] MEDS: Polyethylene Glycol 3350 17 GM Packet PO SCH (08:46)
[2018-04-17] MEDS: Aspirin 325 MG Tablet PO SCH (08:46)
[2018-04-17] MEDS: Senna/Docusate Sodium 8.6/50 MG Tablet PO SCH ×2 (08:46→21:09)
[2018-04-17] MEDS: Insulin NovoLOG Aspart Correctional Sugar Inj SQ SCH ×4 (09:23→21:53)
[2018-04-17 11:04] LABS: Albumin 2.7 g/dL (3.4-5.0)
[2018-04-17 11:05] LABS: Total Protein 5.8 g/dL (6.4-8.2)
--- NOTE | 2018-04-17 12:34 | P.PNCV ---
- Note Subjective/Hospital Course: This 52-year-old male presented to the emergency room with shortness of breath without exertion for the last month. No syncope or chest pain, but the breathing has become worse over the past week. He has not seen a physician since 2008. He was seen in the past for fatigue and worked up for presyncope in 2005, was seen at that time by Dr. Calderon, was found to have some heart murmur , had an echo, was told he had some aortic valve involvement. The patient presented with a troponin of 0.41. However, the heart catheterization showed no evidence of coronary disease, possibly elevated due to critical aortic stenosis. He underwent also an echocardiogram which showed a valve area of 0.38 , with some trace tricuspid valve regurgitation, trace mitral valve regurgitation, pulmonary artery pressures of 29 mmHg, ejection fraction of 15%, diffuse global AP hypokinesis. There was also a small 12 x 14 mm, round mobile calcified apical left ventricular thrombus. We were consulted for aortic valve replacement. 04/11 The ECHO and angiographic findings were discussed in detail with the patient and his family. The option of mechanical versus tissue valve was discussed in detail as well as the advantages and disadvantages of both types of valves. He understands the provided information and wishes to opt for the tissue valve to avoid life-long anticoagulation therapy. The risks, complications including but not limited to bleeding, infection, stroke, myocardial injury and , and benefits of the surgical procedure were discussed in details and all questions answered. He understands the provided information and agrees to proceed with the planned operation. We will plan on proceeding with the surgical procedure as describe above on Saturday. Thank you for allowing me to participate in the care of this patient. surgery: 04/14 PREOPERATIVE DIAGNOSES 1. Critical Aortic Stenosis. 2. Severe Left Ventricular Dysfunction (EF 15%) 3. NSTEMI 4. Left Ventricular Apical Thrombus POSTOPERATIVE DIAGNOSES Same SURGICAL PROCEDURE Aortic Valve Replacement with a 29 mm Medtronic Mosaic Cinch Tissue valve. crystalloid 4000cc, cell saver 1000cc, EBL 2000cc stroke alert called 15 min after arrival to CVICU left sided weakness, left facial drooping stat CTA head showed acute right MCA stroke thrombectomy completed by IR, placed on Heparin gtt 04/15 Bp stable , low dose lasix given , follows commands , moving left arm and leg , left arm 3/5 left leg 4/5 left facial droop, follows commands consult OT/ speech / has PT / for repeat CT head this am will need coumadin keep in CVIVU for now 04/16 appreciate Neuro input, on full dose ASA, off Heparin gtt/ concern for conversion f/u CT brain next week if stable, then consider coumadin at that time has left peripheral vision neglect , left arm weakness 2-3/5 ambulated with 2 person assist start low dose BB , gentle diuresis , dc julian cath transfer to stepdown in am continue PT/OT speech / being evaluate for [facility] leave chest tube in today , thick bloody clots 04/17 ct dc without difficulty left arm weakness improving ambulating with assistance and walker ok to transfer to stepdown continue full dose aspirin HGB 7.3/ transfuse 2 units of PRBC with lasix after each unit Objective: Vital Signs - 24 hr 04/16/18 14:41 04/16/18 15:00 04/16/18 19:00 Temperature 99.1 F 99.2 F Pulse Rate 85 80 77 Respiratory Rate 18 20 24 Blood Pressure 120/71 101/50 L Pulse Oximetry 95 04/16/18 21:37 04/16/18 23:00 04/16/18 23:03 Temperature 98.9 F Pulse Rate 79 77 Respiratory Rate 22 26 H 24 Blood Pressure 104/54 L Pulse Oximetry 94 L 04/17/18 03:00 04/17/18 06:21 04/17/18 07:00 Temperature 99.5 F 100.6 F H Pulse Rate 73 76 Respiratory Rate 24 22 20 Blood Pressure 111/72 135/77 Pulse Oximetry 04/17/18 08:00 04/17/18 10:04 04/17/18 11:00 Temperature 99.8 F H Pulse Rate 81 79 Respiratory Rate 24 18 18 Blood Pressure 111/76 Pulse Oximetry 95 GENERAL: A&O x 3 SKIN: Warm and dry. prevena dressing to chest HEAD: Normocephalic. EYES: No scleral icterus. No injection or drainage. NECK: Supple, trachea midline. No JVD or lymphadenopathy. CARDIOVASCULAR: Regular rate and rhythm without murmurs, gallops, or rubs. RESPIRATORY: Breath sounds equal bilaterally. No accessory muscle use. occasional insp and exp wheezing / chest tubes dc GASTROINTESTINAL: Abdomen soft, non-tender, nondistended. MUSCULOSKELETAL: No cyanosis, or edema. BACK: Nontender without obvious deformity. No CVA tenderness. Labs: Laboratory Results - last 12 hr 04/17/18 04/17/18 04/17/18 02:58 04:30 04:30 WBC 13.0 H RBC 2.31 L Hgb 7.3 L Hct 21.7 L MCV 94.0 MCH 31.8 MCHC 33.9 RDW 13.8 Plt Count 141 L MPV 8.4 PT INR Sodium 136 Potassium 5.0 D Chloride 104 Carbon Dioxide 25.0 Anion Gap 7 BUN 19 H Creatinine 1.25 Estimated GFR 61 L POC Glucose 132 H Random Glucose 124 H Calcium 7.9 L Magnesium Total Bilirubin Direct Bilirubin Indirect Bilirubin AST ALT Alkaline Phosphatase Lactate Dehydrogenase Total Protein Albumin Blood Type Antibody Screen MTS Gel Crossmatch 04/17/18 04/17/18 04/17/18 04:30 04:30 09:17 WBC RBC Hgb Hct MCV MCH MCHC RDW Plt Count MPV PT 11.1 INR 1.1 Sodium Potassium Chloride Carbon Dioxide Anion Gap BUN Creatinine Estimated GFR POC Glucose 157 H Random Glucose Calcium Magnesium 2.2 Total Bilirubin Direct Bilirubin Indirect Bilirubin AST ALT Alkaline Phosphatase Lactate Dehydrogenase Total Protein Albumin Blood Type Antibody Screen MTS Gel Crossmatch 04/17/18 04/17/18 10:32 10:33 WBC RBC Hgb Hct MCV MCH MCHC RDW Plt Count MPV PT INR Sodium Potassium Chloride Carbon Dioxide Anion Gap BUN Creatinine Estimated GFR POC Glucose Random Glucose Calcium Magnesium Total Bilirubin 0.8 Direct Bilirubin 0.2 Indirect Bilirubin 0.6 AST 24 ALT 19 Alkaline Phosphatase 45 Lactate Dehydrogenase 309 H Total Protein 5.8 L Albumin 2.7 L Blood Type A Positive Antibody Screen Negative MTS Gel Crossmatch See Detail Result Diagrams: 04/17/18 04:30 04/17/18 04:30 Cardiovascular: NSR - Plan (1) Severe left ventricular systolic dysfunction Plan: will need elias, eval for Life vest prior to discharge start ELIAS when creatinine improved (3) Left ventricular apical thrombus Plan: (5) S/P AVR Plan: on ASA, BB , gentle diuresis pulm toileting (6) Acute CVA (cerebrovascular accident) Plan: ASA, Neuro following PT/OT/ speech therapy will need repeat CT brain possible saturday to eval for anticoagulation eval for [facility] (7) Blood loss anemia Plan: for 2 units PRBC
[2018-04-17] MEDS: Ferrous Sulfate 325 MG Tablet PO SCH ×2 (12:45→18:26)
--- NOTE | 2018-04-17 16:51 | P.PNCC ---
Subjective Subjective Remarks/Hospital Course: 04/14: 52-year-old male who was admitted with shortness of breath diagnosed to have a critical aortic stenosis as well as an apical LV thrombus by echo. He underwent cardiac catheterization by Dr. Anil Triplett and had essentially clean coronaries. Patient was evaluated by CT surgery Dr. Mirian Hernandez, and underwent aortic valve replacement on 04/14/2018 under general anesthesia following which he was transferred to CVICU. Critical care consult was requested by Dr. Hernandez for postop respiratory failure. I evaluated the patient immediately on being notified of the consult and CVICU. Patient was hypoxic initially with O2 sats in the 88% range which gradually improved with increasing PEEP on 100% FiO2. As patient started arousing from anesthesia it was noted that he was not moving his left upper and lower extremity however was able to follow commands with his right upper and lower extremity including squeezing my hands and bending his right knee, wiggling toes on the right foot. Embolic stroke was suspected with left hemiplegia and stroke alert was called. I immediately discussed the case with Dr. Hernandez as well as with Dr. Satinder Palafox from interventional radiology. I also spoke with Dr. Hernandez from neurology following stroke alert who evaluated patient in CT room. Patient was taken for head CT which was negative for any bleed. CTA was concerning for right MCA occlusion hence patient was taken to interventional radiology to attempt mechanical clot retrieval. Patient did receive half an amp of atropine for bradycardia as well as was started on Levophed for borderline blood pressures prior to transporting for CAT scan. 04/15: Successful mechanical clot retrieval from right MCA by IR yesterday. Extubated on 04/14, on facemask. Moving left side though weaker than right. Awake , alert, follows commands. 04/16: Awake and alert. On facemask O2. Diuresed with Lasix yesterday. Hemoglobin dropped to 7.7. Chest tube remains in place with decreasing drainage. Patient is awake and alert. He actually walk in the hallway today. Still has left-sided weakness in the upper extremity. 04/17: Awake and alert. On nasal cannula. Left-sided weakness gradually improving. Objective Vital Signs / I&O: Vital Signs 04/16/18 19:00 04/16/18 21:37 04/16/18 23:00 Temperature 99.2 F 98.9 F Pulse Rate 77 79 77 Respiratory Rate 24 22 26 H Blood Pressure 101/50 L 104/54 L Pulse Oximetry 94 L 04/16/18 23:03 04/17/18 03:00 04/17/18 06:21 Temperature 99.5 F Pulse Rate 73 Respiratory Rate 24 24 22 Blood Pressure 111/72 Pulse Oximetry 04/17/18 07:00 04/17/18 08:00 04/17/18 10:04 Temperature 100.6 F H Pulse Rate 76 81 Respiratory Rate 20 24 18 Blood Pressure 135/77 Pulse Oximetry 95 04/17/18 11:00 04/17/18 12:49 04/17/18 15:00 Temperature 99.8 F H 99.5 F 100.1 F H Pulse Rate 79 75 83 Respiratory Rate 18 20 20 Blood Pressure 111/76 115/55 L 106/70 Pulse Oximetry Intake & Output 04/16/18 04/17/18 04/17/18 18:59 06:59 18:59 Intake Total 1160 / 1160 0 / 0 Output Total 1520 / 1520 250 / 250 Balance -360 / -360 -250 / -250 0 / 0 Weight 112.3 kg Intake: IV 200 / 200 Magnesium Sulfate Inj 2 GM In 100 / 100 NS Inj 96 ML @ 50 mls/hr IV.SIG PRN PRN Rx#:[id number] KCl 20 mEq Premix Inj 20 meq In 100 / 100 100 ml @ 50 mls/hr IV.SIG PRN PRN Rx#:[id number] Oral 960 / 960 Intake (Blood Product) Amt 0 / 0 Rbc As-3 Leukoreduced Unit 0 / 0 [id number] Output: Urine 250 / 250 Urine Amount (Catheter) 1500 / 1500 Indwelling Temp Sensing 1500 / 1500 Catheter Chest Tube Drainage 20 / 20 #1 20 / 20 Other: # Incontinent Voids 3 Date of Last Bowel Movement 04/13/18 04/17/18 Result Diagrams: 04/17/18 04:30 04/17/18 04:30 Objective Remarks: HEENT/Neuro: Pallor present, no icterus, tongue moist, SANA, Awake alert oriented 3, speech is slightly slurred. Following commands. Moving all 4 extremities with grade 4 power in left upper and lower extremities which is a significant improvement compared to his initial eval on 04/14 in the immediate postop period With dense left hemiplegia Neck: No JVD Chest/pulmonary: On nasal cannula O2, air entry decreased bilaterally at bases, scattered rhonchi, no wheezing Cardiovascular: S1-S2 regular no gallop or murmur. Wound VAC over sternotomy site. Chest tube in place. GI/abdomen: Soft, nontender, bowel sounds present Extremities: Warm bilaterally, no edema Assessment and Plan - Assessment and Plan Plan: 52-year-old male with: Critical aortic stenosis status post aortic valve replacement 04/14 Postop respiratory failure Embolic stroke with left hemiplegia LV thrombus Bradycardia Hypotension Plan: Neuro: Stroke alert called on 04/14 immediate postop period following arrival to CVICU. Head CT negative for bleed. CTA suggestive of right MCA territory occlusion following which patient taken for interventional radiology and successful mechanical clot retrieval from occluded M1 segment of right MCA performed. On aspirin preoperatively. Neurology consulted and following. On aspirin 325 mg daily. Heparin GTT stopped per neurology. Neurochecks per protocol. head CT on 04/15 shows right basal ganglia infarct with edema. Further recommendations per neurology. Will eventually need anticoagulation when cleared by neurology. Cardiovascular: Status post aortic valve replacement postop day 2. Being followed by CT surgery Chest tube discontinued. Off levophed. Diuresed. Pulmonary: Extubated on 04/14 night, continue nasal cannula O2. bronchodilators as needed. Postop chest x-ray shows well-expanded lung baez, cardiomegaly. GI/liver: Speech and swallow eval per stroke protocol. Advance p.o. diet as tolerated. Renal/: strict intake output, monitor and replete electrolyte, follow BUN/ creatinine. Lasix 20 mg IV to mobilize fluids ID: Periop antibiotic prophylaxis per CT surgery. Heme: Follow CBC and coags. Antiplatelet therapy/anticoagulation per neurology. On aspirin. Off heparin GTT. Drop in hemoglobin noted. Transfuse to keep hemoglobin above 7 g percent. Endocrine: SSI for glycemic control if needed. Prophylaxis: Protonix/SCDs. Subcu heparin/Lovenox when okay with CT surgery Critical care will sign off at this time, please reconsult if needed.
--- NOTE | 2018-04-17 18:08 | P.PNNEU ---
Subjective Subjective Comments: no new neurologic sx. improving left sided strength and coordination Active Medications: Active Medications Acetaminophen (Tylenol) 650 mg PO Q4H PRN PRN Reason: FEVER > 101 F Hydrocodone Bitart/Acetaminophen (Townsend 5/325) 1 tab PO Q3H PRN PRN Reason: PAIN SCALE 1 TO 5 Last Admin: 04/17/18 15:18 Dose: 1 tab Al Hydroxide/Mg Hydroxide (Milk Of Magnesia Liq) 30 ml PO Q12H PRN PRN Reason: Mild Constipation Al Hydroxide/Mg Hydroxide (Milk Of Magnesia Liq) 30 ml PO DAILY [facility] Last Admin: 04/17/18 08:46 Dose: 30 ml Albuterol (Duoneb Neb (Prn)) 1 ampul NEB Q2HR NEB PRN PRN Reason: WHEEZING Amiodarone HCl (Cordarone) 200 mg PO Q12HR [facility] Last Admin: 04/17/18 08:45 Dose: 200 mg Aspirin (Aspirin) 325 mg PO DAILY [facility] Last Admin: 04/17/18 08:46 Dose: 325 mg Atorvastatin Calcium (Lipitor) 40 mg PO HS [facility] Last Admin: 04/16/18 20:52 Dose: 40 mg Bisacodyl (Dulcolax Supp) 10 mg RECTAL PRN PRN PRN Reason: SEE LABEL COMMENTS Dextrose (D50w Vial) 50 ml IV.PUSH UNSCH PRN PRN Reason: PER HYPOGLYCEMIA PROTOCOL Docusate Sodium (Colace) 100 mg PO BID [facility] Last Admin: 04/17/18 08:44 Dose: 100 mg Ferrous Sulfate (Ferosul) 325 mg PO BID@1200,1700 [facility] Last Admin: 04/17/18 12:45 Dose: 325 mg Glucagon (Glucagon Inj) 1 mg OTHER PRN PRN PRN Reason: For hypoglycemia Sodium Chloride (Ns Inj) 1,000 mls @ 100 mls/hr IV.CONT .Q10H [facility] Last Admin: 04/17/18 15:12 Dose: Not Given Insulin Aspart (Novolog Insulin Correctional Sugar Inj) 0 unit SQ ACHS [facility]; Protocol Last Admin: 04/17/18 14:26 Dose: 7 unit Metoprolol Tartrate (Lopressor) 12.5 mg PO BID [facility] Last Admin: 04/17/18 08:45 Dose: 12.5 mg Miscellaneous (Pill Splitter) 1 each OTHER UNSCH [facility] Multivitamins/Minerals (Theragran-M) 1 tab PO DAILY [facility] Last Admin: 04/17/18 08:45 Dose: 1 tab Ondansetron HCl (Zofran Inj) 4 mg IV.PUSH Q6H PRN PRN Reason: NAUSEA OR VOMITING Ondansetron HCl (Zofran Inj) 4 mg IV.PUSH Q6H PRN PRN Reason: NAUSEA OR VOMITING Pantoprazole Sodium (Protonix) 40 mg PO DAILY@06 [facility] Last Admin: 04/17/18 06:20 Dose: 40 mg Polyethylene Glycol (Miralax) 17 gm PO DAILY [facility] Last Admin: 04/17/18 08:46 Dose: 17 gm Senna/Docusate Sodium (Lizett-Colace) 1 tab PO BID [facility] Last Admin: 04/17/18 08:46 Dose: 1 tab Sennosides (Senokot) 17.2 mg PO Q12H PRN PRN Reason: Moderate Constipation Sennosides (Senokot) 8.6 mg PO HS [facility] Last Admin: 04/16/18 20:52 Dose: 8.6 mg Sodium Biphosphate/Sodium Phosphate (Fleets Enema (Adult)) 118 ml RECTAL UNSCH PRN PRN Reason: SEE LABEL COMMENTS Allergies/Adverse Reactions: Allergies Allergy/AdvReac Type Severity Reaction Status Date / Time tree and shrub pollen Allergy Intermediate itchy rash Verified 04/10/18 07:48 poison oak extract Allergy Swelling Verified 04/10/18 07:47 of Lip/Tongue/Throat Physical Exam Vital signs: Vital Signs 04/16/18 19:00 04/16/18 21:37 04/16/18 23:00 Temperature 99.2 F 98.9 F Pulse Rate 77 79 77 Respiratory Rate 24 22 26 H Blood Pressure 101/50 L 104/54 L Pulse Oximetry 94 L 04/16/18 23:03 04/17/18 03:00 04/17/18 06:21 Temperature 99.5 F Pulse Rate 73 Respiratory Rate 24 24 22 Blood Pressure 111/72 Pulse Oximetry 04/17/18 07:00 04/17/18 08:00 04/17/18 10:04 Temperature 100.6 F H Pulse Rate 76 81 Respiratory Rate 20 24 18 Blood Pressure 135/77 Pulse Oximetry 95 04/17/18 11:00 04/17/18 12:49 04/17/18 15:00 Temperature 99.8 F H 99.5 F 100.1 F H Pulse Rate 79 75 83 Respiratory Rate 18 20 20 Blood Pressure 111/76 115/55 L 106/70 Pulse Oximetry Intake & Output 04/16/18 04/17/18 04/17/18 18:59 06:59 18:59 Intake Total 1160 / 1160 960 / 960 Output Total 1520 / 1520 250 / 250 1410 / 1410 Balance -360 / -360 -250 / -250 -450 / -450 Weight 112.3 kg Intake: IV 200 / 200 Magnesium Sulfate Inj 2 GM In 100 / 100 NS Inj 96 ML @ 50 mls/hr IV.SIG PRN PRN Rx#:[id number] KCl 20 mEq Premix Inj 20 meq In 100 / 100 100 ml @ 50 mls/hr IV.SIG PRN PRN Rx#:[id number] Oral 960 / 960 960 / 960 Intake (Blood Product) Amt 0 / 0 Rbc As-3 Leukoreduced Unit 0 / 0 [id number] Output: Urine 250 / 250 1400 / 1400 Urine Amount (Catheter) 1500 / 1500 Indwelling Temp Sensing 1500 / 1500 Catheter Chest Tube Drainage #1 Other: # Incontinent Voids 3 4 Date of Last Bowel Movement 04/13/18 04/17/18 # Bowel Movements 1 - Routine Neurological Exam alert. speech normal CN --mild let umn cn 7 palsey. PERRL, EOM intact MOTOR 4/5 LUE and LLE 5/5 RUE and RLE - Urinary Catheter Management Indwelling Temp Sensing Catheter Cath placed during this visit: yes, but has since been removed by the nurse Reason for continuing: Hourly intake/output Insertion date: 04/14/18 Insertion time: 08:00 Removal date: 04/16/18 Removal time: 14:00 Objective Laboratory Results - last 24 hr 04/16/18 04/16/18 04/17/18 18:24 21:04 02:58 WBC RBC Hgb Hct MCV MCH MCHC RDW Plt Count MPV PT INR Sodium Potassium Chloride Carbon Dioxide Anion Gap BUN Creatinine Estimated GFR POC Glucose 192 H 135 H 132 H Random Glucose Calcium Magnesium Total Bilirubin Direct Bilirubin Indirect Bilirubin AST ALT Alkaline Phosphatase Lactate Dehydrogenase Total Protein Albumin Blood Type Antibody Screen MTS Gel Crossmatch 04/17/18 04/17/18 04/17/18 04:30 04:30 04:30 WBC 13.0 H RBC 2.31 L Hgb 7.3 L Hct 21.7 L MCV 94.0 MCH 31.8 MCHC 33.9 RDW 13.8 Plt Count 141 L MPV 8.4 PT 11.1 INR 1.1 Sodium 136 Potassium 5.0 D Chloride 104 Carbon Dioxide 25.0 Anion Gap 7 BUN 19 H Creatinine 1.25 Estimated GFR 61 L POC Glucose Random Glucose 124 H Calcium 7.9 L Magnesium Total Bilirubin Direct Bilirubin Indirect Bilirubin AST ALT Alkaline Phosphatase Lactate Dehydrogenase Total Protein Albumin Blood Type Antibody Screen MTS Gel Crossmatch 04/17/18 04/17/18 04/17/18 04:30 09:17 10:32 WBC RBC Hgb Hct MCV MCH MCHC RDW Plt Count MPV PT INR Sodium Potassium Chloride Carbon Dioxide Anion Gap BUN Creatinine Estimated GFR POC Glucose 157 H Random Glucose Calcium Magnesium 2.2 Total Bilirubin Direct Bilirubin Indirect Bilirubin AST ALT Alkaline Phosphatase Lactate Dehydrogenase Total Protein Albumin Blood Type A Positive Antibody Screen Negative MTS Gel Crossmatch See Detail 04/17/18 04/17/18 10:33 13:44 WBC RBC Hgb Hct MCV MCH MCHC RDW Plt Count MPV PT INR Sodium Potassium Chloride Carbon Dioxide Anion Gap BUN Creatinine Estimated GFR POC Glucose 161 H Random Glucose Calcium Magnesium Total Bilirubin 0.8 Direct Bilirubin 0.2 Indirect Bilirubin 0.6 AST 24 ALT 19 Alkaline Phosphatase 45 Lactate Dehydrogenase 309 H Total Protein 5.8 L Albumin 2.7 L Blood Type Antibody Screen MTS Gel Crossmatch Review/Management - Diagnosis (1) CVA (cerebral vascular accident) Code(s): I63.9 - Cerebral infarction, unspecified Status: Acute Current Visit: Yes - Review/Management Plan: exam is improving Continue asa [address] early next week and consider resuming anticoagulation if edema is decreasing.
[2018-04-17] MEDS ORDERED: Digoxin Inj 500 MCG/2 ML Ampul IV.PUSH ONE (21:00)
[2018-04-18] MEDS ORDERED: Digoxin Inj 500 MCG/2 ML Ampul IV.PUSH ONE ×2 (01:00→05:00)
[2018-04-18] MEDS: Sod Chloride 0.9% Inj 1,000 ML IV.CONT SCH ×3 (01:14→21:38)
[2018-04-18 04:47] LABS: Hematocrit 23.5 % (39.0-51.0); Hemoglobin 7.9 gm/dL (13.0-17.0); Mean Corpuscular HGB Conc 33.7 % (32.0-36.0); Mean Corpuscular Hemoglobin 31.3 pg (27.0-34.0); Mean Corpuscular Volume 92.9 fL (80.0-100.0); Mean Platelet Volume 8.1 fL (7.0-11.0); Platelet Count 186 th/mm3 (150-450); Red Blood Count 2.53 mil/mm3 (4.50-5.90); Red Cell Distribution Width 14.5 % (11.6-17.2); White Blood Count 13.6 th/mm3 (4.0-11.0)
[2018-04-18 04:51] LABS: INR 1.1 Ratio; Prothrombin Time 11.6 sec (9.8-11.6)
[2018-04-18 05:24] LABS: Calcium 8.3 mg/dL (8.5-10.1); Carbon Dioxide 27.8 meq/L (21.0-32.0); Magnesium 2.1 mg/dL (1.5-2.5); Potassium 4.8 meq/L (3.5-5.1)
--- NOTE | 2018-04-18 06:21 | XR ---
EXAM DATE: 04/18/2018 6:13 AM EDT AGE/SEX: 52 years / Male INDICATIONS: Chest tube removal. CLINICAL DATA: This is the patient's subsequent encounter. Patient reports that signs and symptoms h ave been present for 4 - 6 days and indicates a pain score of 5/10. MEDICAL/SURGICAL HISTORY: Cardiovascular disease. CABG. [place] [facility] [place]. . FINDINGS: The patient is status post sternotomy. The heart size is enlarged. There is silhouetting of the left heart border. This increased density at the left mid and lower lung. There is minimal increased densi ty at the medial right base. The mediastinal drains have been removed. A pneumothorax is not seen. CONCLUSION: Left mid and lower lung atelectasis, consolidation and/or effusion. Cardiomegaly. Electronically signed by: Gerhard Linda MD 04/18/2018 6:20 AM EDT
[2018-04-18] MEDS: Metoprolol Tartrate 25 MG Tablet PO SCH ×2 (08:38→21:41)
[2018-04-18] MEDS: Aspirin 325 MG Tablet PO SCH (08:39)
[2018-04-18] MEDS: Docusate Sodium 100 MG Capsule PO SCH ×2 (08:39→21:47)
[2018-04-18] MEDS: Multivitamin/Minerals Therapeutic Tablet PO SCH (08:39)
[2018-04-18] MEDS: Senna/Docusate Sodium 8.6/50 MG Tablet PO SCH ×2 (08:40→21:47)
[2018-04-18] MEDS: Polyethylene Glycol 3350 17 GM Packet PO SCH (08:40)
[2018-04-18] MEDS: Insulin NovoLOG Aspart Correctional Sugar Inj SQ SCH ×4 (08:42→21:47)
[2018-04-18] MEDS: Digoxin 250 MCG Tablet PO SCH (10:50)
--- NOTE | 2018-04-18 12:52 | ECG ---
Date Performed: 04/17/2018 Time Performed: 19:08:04 PTAGE: 52 years EKG: Atrial fibrillation with rapid ventricular response. Left ventricular hypertrophy Lateral S T-T changes are probably due to ventricular hypertrophy Abnormal ECG Compared to PREVIOUS TRACING , atrial fibrillation has replaced Sinus rhythm . PREVIOUS TRACIN04/15/2018 03.58 DOCTOR: Anil Triplett Interpretating Date/Time 04/18/2018 12:50:36
[2018-04-18] MEDS: Ferrous Sulfate 325 MG Tablet PO SCH ×2 (13:39→18:38)
--- NOTE | 2018-04-18 15:16 | US ---
EXAM DATE: 04/18/2018 2:22 PM EDT AGE/SEX: 52 years / Male INDICATIONS: Left pleural effusion. CLINICAL DATA: This is the patient's subsequent encounter. Patient reports that signs and symptoms h ave been present for 1 day and indicates a pain score of 0/10. MEDICAL/SURGICAL HISTORY: . Aortic valve regurgitation. Palpitations. Stroke. . Aortic valve replacement. COMPARISON: No prior exams available for comparison. MEASUREMENTS: Skin To Parietal Pleura:__2.7 cm Skin To Max Safe Depth:__3.7 cm Estimated Fluid Volume:__250 cc Fluid Composition:__inadequate fluid FINDINGS: No marking was performed. CONCLUSION: Small volume complex left chest pleural fluid collection. If sampling for diagnostic purposes is clin ically indicated, this could be performed under CT guidance. Electronically signed by: Gerhard Bond MD 04/18/2018 3:15 PM EDT
--- NOTE | 2018-04-18 15:47 | P.PNCV ---
- Note Subjective/Hospital Course: This 52-year-old male presented to the emergency room with shortness of breath without exertion for the last month. No syncope or chest pain, but the breathing has become worse over the past week. He has not seen a physician since 2008. He was seen in the past for fatigue and worked up for presyncope in 2005, was seen at that time by Dr. Calderon, was found to have some heart murmur , had an echo, was told he had some aortic valve involvement. The patient presented with a troponin of 0.41. However, the heart catheterization showed no evidence of coronary disease, possibly elevated due to critical aortic stenosis. He underwent also an echocardiogram which showed a valve area of 0.38 , with some trace tricuspid valve regurgitation, trace mitral valve regurgitation, pulmonary artery pressures of 29 mmHg, ejection fraction of 15%, diffuse global AP hypokinesis. There was also a small 12 x 14 mm, round mobile calcified apical left ventricular thrombus. We were consulted for aortic valve replacement. 04/11 The ECHO and angiographic findings were discussed in detail with the patient and his family. The option of mechanical versus tissue valve was discussed in detail as well as the advantages and disadvantages of both types of valves. He understands the provided information and wishes to opt for the tissue valve to avoid life-long anticoagulation therapy. The risks, complications including but not limited to bleeding, infection, stroke, myocardial injury and , and benefits of the surgical procedure were discussed in details and all questions answered. He understands the provided information and agrees to proceed with the planned operation. We will plan on proceeding with the surgical procedure as describe above on Saturday. Thank you for allowing me to participate in the care of this patient. surgery: 04/14 PREOPERATIVE DIAGNOSES 1. Critical Aortic Stenosis. 2. Severe Left Ventricular Dysfunction (EF 15%) 3. NSTEMI 4. Left Ventricular Apical Thrombus POSTOPERATIVE DIAGNOSES Same SURGICAL PROCEDURE Aortic Valve Replacement with a 29 mm Medtronic Mosaic Cinch Tissue valve. crystalloid 4000cc, cell saver 1000cc, EBL 2000cc stroke alert called 15 min after arrival to CVICU left sided weakness, left facial drooping stat CTA head showed acute right MCA stroke thrombectomy completed by IR, placed on Heparin gtt 04/15 Bp stable , low dose lasix given , follows commands , moving left arm and leg , left arm 3/5 left leg 4/5 left facial droop, follows commands consult OT/ speech / has PT / for repeat CT head this am will need coumadin keep in CVIVU for now 04/16 appreciate Neuro input, on full dose ASA, off Heparin gtt/ concern for conversion f/u CT brain next week if stable, then consider coumadin at that time has left peripheral vision neglect , left arm weakness 2-3/5 ambulated with 2 person assist start low dose BB , gentle diuresis , dc julian cath transfer to stepdown in am continue PT/OT speech / being evaluate for [facility] leave chest tube in today , thick bloody clots 04/17 ct dc without difficulty left arm weakness improving ambulating with assistance and walker ok to transfer to stepdown continue full dose aspirin HGB 7.3/ transfuse 2 units of PRBC with lasix after each unit 04/18 pt had low grade temp yesterday after first unit PRBC second unit not given worsening chest xray , US done approximately 250cc/ fluid no thoracentesis if no improvement with pulm toileting , then may need CT chest continue diuresis / aspiration precaution PT/OT / CT Brain pending as per Neuro / eval for potential anticoagulation pt will also need life vest Objective: Vital Signs - 24 hr 04/17/18 19:00 04/17/18 20:00 04/17/18 20:46 Temperature 99.2 F Pulse Rate 116 H 102 H Respiratory Rate Blood Pressure 95/62 L Pulse Oximetry 93 L 95 04/17/18 21:00 04/17/18 22:00 04/17/18 23:00 Temperature 98 F Pulse Rate 102 H 94 H 88 Respiratory Rate Blood Pressure 111/75 Pulse Oximetry 98 04/18/18 00:00 04/18/18 01:00 04/18/18 02:00 Temperature Pulse Rate 92 H 89 72 Respiratory Rate Blood Pressure Pulse Oximetry 04/18/18 03:00 04/18/18 04:00 04/18/18 05:00 Temperature 98.4 F Pulse Rate 70 70 83 Respiratory Rate Blood Pressure 108/62 Pulse Oximetry 97 04/18/18 06:00 04/18/18 07:00 04/18/18 08:00 Temperature 98 F Pulse Rate 67 72 72 Respiratory Rate 18 Blood Pressure 133/79 Pulse Oximetry 98 97 04/18/18 09:00 04/18/18 10:00 04/18/18 11:00 Temperature Pulse Rate 72 72 72 Respiratory Rate Blood Pressure Pulse Oximetry 04/18/18 12:00 Temperature Pulse Rate 72 Respiratory Rate Blood Pressure Pulse Oximetry Labs: Laboratory Results - last 12 hr 04/18/18 04/18/18 04/18/18 04:30 04:30 04:30 WBC 13.6 H RBC 2.53 L Hgb 7.9 L Hct 23.5 L MCV 92.9 MCH 31.3 MCHC 33.7 RDW 14.5 Plt Count 186 D MPV 8.1 PT 11.6 INR 1.1 Sodium 133 L Potassium 4.8 Chloride 99 Carbon Dioxide 27.8 Anion Gap 6 BUN 20 H Creatinine 1.19 Estimated GFR 64 L Random Glucose 115 H Calcium 8.3 L Magnesium 2.1 Result Diagrams: 04/18/18 04:30 04/18/18 04:30 - Plan (1) Severe left ventricular systolic dysfunction Plan: will need elias, eval for Life vest prior to discharge start ELIAS continue diuresis (3) Left ventricular apical thrombus Plan: (5) S/P AVR Plan: on ASA, BB , gentle diuresis pulm toileting (6) Acute CVA (cerebrovascular accident) Plan: ASA, Neuro following PT/OT/ speech therapy will need repeat CT brain possible saturday to eval for anticoagulation eval for [facility] (7) Blood loss anemia Plan: s/p one unit PRBC start ferrous sulfate (8) Pleural effusion Plan: continue diuresis
[2018-04-18] MEDS: Piperacil/Tazo 4.5 GM Premix 4.5 GM/100 ML BAG IV.SIG SCH ×2 (18:38→23:29)
[2018-04-19 05:05] LABS: INR 1.1 Ratio; Prothrombin Time 10.9 sec (9.8-11.6)
[2018-04-19 05:14] LABS: Hematocrit 24.6 % (39.0-51.0); Hemoglobin 8.2 gm/dL (13.0-17.0); Mean Corpuscular HGB Conc 33.5 % (32.0-36.0); Mean Corpuscular Hemoglobin 30.9 pg (27.0-34.0); Mean Corpuscular Volume 92.5 fL (80.0-100.0); Mean Platelet Volume 8.1 fL (7.0-11.0); Platelet Count 242 th/mm3 (150-450); Red Blood Count 2.66 mil/mm3 (4.50-5.90); Red Cell Distribution Width 15.2 % (11.6-17.2); White Blood Count 12.1 th/mm3 (4.0-11.0)
[2018-04-19] MEDS: Piperacil/Tazo 4.5 GM Premix 4.5 GM/100 ML BAG IV.SIG SCH ×4 (05:21→23:09)
[2018-04-19 05:29] LABS: Carbon Dioxide 28.9 meq/L (21.0-32.0); Magnesium 2.2 mg/dL (1.5-2.5); Potassium 3.9 meq/L (3.5-5.1)
[2018-04-19] MEDS: Sod Chloride 0.9% Inj 1,000 ML IV.CONT SCH ×2 (09:43→16:37)
[2018-04-19] MEDS: Metoprolol Tartrate 25 MG Tablet PO SCH ×2 (09:44→20:14)
[2018-04-19] MEDS: Ramipril 2.5 MG Capsule PO SCH (09:44)
[2018-04-19] MEDS: Insulin NovoLOG Aspart Correctional Sugar Inj SQ SCH ×4 (09:44→20:16)
[2018-04-19] MEDS: Digoxin 250 MCG Tablet PO SCH (09:44)
[2018-04-19] MEDS: Senna/Docusate Sodium 8.6/50 MG Tablet PO SCH ×2 (09:45→20:14)
[2018-04-19] MEDS: Polyethylene Glycol 3350 17 GM Packet PO SCH (09:45)
[2018-04-19] MEDS: Aspirin 325 MG Tablet PO SCH (09:45)
[2018-04-19] MEDS: Multivitamin/Minerals Therapeutic Tablet PO SCH (09:45)
[2018-04-19] MEDS: Docusate Sodium 100 MG Capsule PO SCH ×2 (09:45→20:14)
--- NOTE | 2018-04-19 10:00 | P.PNCV ---
- Note Subjective/Hospital Course: This 52-year-old male presented to the emergency room with shortness of breath without exertion for the last month. No syncope or chest pain, but the breathing has become worse over the past week. He has not seen a physician since 2008. He was seen in the past for fatigue and worked up for presyncope in 2005, was seen at that time by Dr. Calderon, was found to have some heart murmur , had an echo, was told he had some aortic valve involvement. The patient presented with a troponin of 0.41. However, the heart catheterization showed no evidence of coronary disease, possibly elevated due to critical aortic stenosis. He underwent also an echocardiogram which showed a valve area of 0.38 , with some trace tricuspid valve regurgitation, trace mitral valve regurgitation, pulmonary artery pressures of 29 mmHg, ejection fraction of 15%, diffuse global AP hypokinesis. There was also a small 12 x 14 mm, round mobile calcified apical left ventricular thrombus. We were consulted for aortic valve replacement. 04/11 The ECHO and angiographic findings were discussed in detail with the patient and his family. The option of mechanical versus tissue valve was discussed in detail as well as the advantages and disadvantages of both types of valves. He understands the provided information and wishes to opt for the tissue valve to avoid life-long anticoagulation therapy. The risks, complications including but not limited to bleeding, infection, stroke, myocardial injury and , and benefits of the surgical procedure were discussed in details and all questions answered. He understands the provided information and agrees to proceed with the planned operation. We will plan on proceeding with the surgical procedure as describe above on Saturday. Thank you for allowing me to participate in the care of this patient. surgery: 04/14 PREOPERATIVE DIAGNOSES 1. Critical Aortic Stenosis. 2. Severe Left Ventricular Dysfunction (EF 15%) 3. NSTEMI 4. Left Ventricular Apical Thrombus POSTOPERATIVE DIAGNOSES Same SURGICAL PROCEDURE Aortic Valve Replacement with a 29 mm Medtronic Mosaic Cinch Tissue valve. crystalloid 4000cc, cell saver 1000cc, EBL 2000cc stroke alert called 15 min after arrival to CVICU left sided weakness, left facial drooping stat CTA head showed acute right MCA stroke thrombectomy completed by IR, placed on Heparin gtt 04/15 Bp stable , low dose lasix given , follows commands , moving left arm and leg , left arm 3/5 left leg 4/5 left facial droop, follows commands consult OT/ speech / has PT / for repeat CT head this am will need coumadin keep in CVIVU for now 04/16 appreciate Neuro input, on full dose ASA, off Heparin gtt/ concern for conversion f/u CT brain next week if stable, then consider coumadin at that time has left peripheral vision neglect , left arm weakness 2-3/5 ambulated with 2 person assist start low dose BB , gentle diuresis , dc julian cath transfer to stepdown in am continue PT/OT speech / being evaluate for [facility] leave chest tube in today , thick bloody clots 04/17 ct dc without difficulty left arm weakness improving ambulating with assistance and walker ok to transfer to stepdown continue full dose aspirin HGB 7.3/ transfuse 2 units of PRBC with lasix after each unit 04/18 pt had low grade temp yesterday after first unit PRBC second unit not given worsening chest xray , US done approximately 250cc/ fluid no thoracentesis if no improvement with pulm toileting , then may need CT chest continue diuresis / aspiration precaution PT/OT / CT Brain pending as per Neuro / eval for potential anticoagulation pt will also need life vest 04/19 Likely stable Upper extremity strength improving considerably. Left lower lobe atelectasis/pneumonia. On antibiotics. Repeat labs in a.m. Continue aggressive pulmonary toiletry Awaiting rehab evaluation Objective: Vital Signs - 24 hr 04/18/18 10:00 04/18/18 11:00 04/18/18 12:00 Temperature 97.9 F Pulse Rate 72 70 72 Respiratory Rate 20 Blood Pressure 128/64 Pulse Oximetry 95 04/18/18 13:00 04/18/18 15:00 04/18/18 16:00 Temperature 97.6 F Pulse Rate 65 73 65 Respiratory Rate 18 Blood Pressure 134/64 Pulse Oximetry 95 04/18/18 17:00 04/18/18 17:02 04/18/18 18:00 Temperature Pulse Rate 70 65 Respiratory Rate Blood Pressure Pulse Oximetry 95 04/18/18 19:00 04/18/18 20:00 04/18/18 21:00 Temperature 98.2 F Pulse Rate 72 68 72 Respiratory Rate Blood Pressure 127/58 L Pulse Oximetry 98 98 04/18/18 22:00 04/18/18 23:00 04/19/18 00:00 Temperature 98.7 F Pulse Rate 76 76 73 Respiratory Rate Blood Pressure 136/87 Pulse Oximetry 95 04/19/18 01:00 04/19/18 02:00 04/19/18 03:00 Temperature 97.7 F Pulse Rate 73 59 L 55 L Respiratory Rate Blood Pressure 118/68 Pulse Oximetry 99 04/19/18 04:00 04/19/18 05:00 04/19/18 06:00 Temperature Pulse Rate 68 64 76 Respiratory Rate Blood Pressure Pulse Oximetry 04/19/18 08:04 04/19/18 09:31 Temperature 97.8 F Pulse Rate 73 74 Respiratory Rate 18 18 Blood Pressure 107/70 Pulse Oximetry 99 Labs: Laboratory Results - last 12 hr 04/19/18 04/19/18 04/19/18 04:17 04:17 04:17 WBC 12.1 H RBC 2.66 L Hgb 8.2 L Hct 24.6 L MCV 92.5 MCH 30.9 MCHC 33.5 RDW 15.2 Plt Count 242 D MPV 8.1 PT 10.9 INR 1.1 Sodium 136 Potassium 3.9 D Chloride 99 Carbon Dioxide 28.9 Anion Gap 8 BUN 22 H Creatinine 1.23 Estimated GFR 62 L POC Glucose Random Glucose 105 Calcium 8.0 L Magnesium 2.2 04/19/18 08:02 WBC RBC Hgb Hct MCV MCH MCHC RDW Plt Count MPV PT INR Sodium Potassium Chloride Carbon Dioxide Anion Gap BUN Creatinine Estimated GFR POC Glucose 96 Random Glucose Calcium Magnesium Result Diagrams: 04/19/18 04:17 04/19/18 04:17 - Plan (1) Severe left ventricular systolic dysfunction Plan: will need elias, eval for Life vest prior to discharge start ELIAS continue diuresis (3) Left ventricular apical thrombus Plan: (5) S/P AVR Plan: on ASA, BB , gentle diuresis pulm toileting (6) Acute CVA (cerebrovascular accident) Plan: ASA, Neuro following PT/OT/ speech therapy will need repeat CT brain possible saturday to eval for anticoagulation eval for [facility] (7) Blood loss anemia Plan: s/p one unit PRBC start ferrous sulfate (8) Pleural effusion Plan: continue diuresis
[2018-04-19] MEDS: Ferrous Sulfate 325 MG Tablet PO SCH ×2 (11:19→16:35)
[2018-04-20] MEDS: Piperacil/Tazo 4.5 GM Premix 4.5 GM/100 ML BAG IV.SIG SCH ×4 (05:09→22:08)
[2018-04-20 05:11] LABS: INR 1.1 Ratio
[2018-04-20] MEDS: Sod Chloride 0.9% Inj 1,000 ML IV.CONT SCH ×2 (06:55→12:28)
[2018-04-20] MEDS: Insulin NovoLOG Aspart Correctional Sugar Inj SQ SCH ×3 (07:48→17:18)
[2018-04-20] MEDS: Metoprolol Tartrate 25 MG Tablet PO SCH ×2 (08:44→20:29)
[2018-04-20] MEDS: Polyethylene Glycol 3350 17 GM Packet PO SCH (08:44)
[2018-04-20] MEDS: Senna/Docusate Sodium 8.6/50 MG Tablet PO SCH (08:45)
[2018-04-20] MEDS: Ramipril 2.5 MG Capsule PO SCH (08:45)
[2018-04-20] MEDS: Multivitamin/Minerals Therapeutic Tablet PO SCH (08:45)
[2018-04-20] MEDS: Aspirin 325 MG Tablet PO SCH (08:45)
[2018-04-20] MEDS: Docusate Sodium 100 MG Capsule PO SCH (08:45)
[2018-04-20] MEDS: Digoxin 250 MCG Tablet PO SCH (08:45)
--- NOTE | 2018-04-20 09:54 | P.PNCV ---
- Note Subjective/Hospital Course: This 52-year-old male presented to the emergency room with shortness of breath without exertion for the last month. No syncope or chest pain, but the breathing has become worse over the past week. He has not seen a physician since 2008. He was seen in the past for fatigue and worked up for presyncope in 2005, was seen at that time by Dr. Calderon, was found to have some heart murmur , had an echo, was told he had some aortic valve involvement. The patient presented with a troponin of 0.41. However, the heart catheterization showed no evidence of coronary disease, possibly elevated due to critical aortic stenosis. He underwent also an echocardiogram which showed a valve area of 0.38 , with some trace tricuspid valve regurgitation, trace mitral valve regurgitation, pulmonary artery pressures of 29 mmHg, ejection fraction of 15%, diffuse global AP hypokinesis. There was also a small 12 x 14 mm, round mobile calcified apical left ventricular thrombus. We were consulted for aortic valve replacement. 04/11 The ECHO and angiographic findings were discussed in detail with the patient and his family. The option of mechanical versus tissue valve was discussed in detail as well as the advantages and disadvantages of both types of valves. He understands the provided information and wishes to opt for the tissue valve to avoid life-long anticoagulation therapy. The risks, complications including but not limited to bleeding, infection, stroke, myocardial injury and , and benefits of the surgical procedure were discussed in details and all questions answered. He understands the provided information and agrees to proceed with the planned operation. We will plan on proceeding with the surgical procedure as describe above on Saturday. Thank you for allowing me to participate in the care of this patient. surgery: 04/14 PREOPERATIVE DIAGNOSES 1. Critical Aortic Stenosis. 2. Severe Left Ventricular Dysfunction (EF 15%) 3. NSTEMI 4. Left Ventricular Apical Thrombus POSTOPERATIVE DIAGNOSES Same SURGICAL PROCEDURE Aortic Valve Replacement with a 29 mm Medtronic Mosaic Cinch Tissue valve. crystalloid 4000cc, cell saver 1000cc, EBL 2000cc stroke alert called 15 min after arrival to CVICU left sided weakness, left facial drooping stat CTA head showed acute right MCA stroke thrombectomy completed by IR, placed on Heparin gtt 04/15 Bp stable , low dose lasix given , follows commands , moving left arm and leg , left arm 3/5 left leg 4/5 left facial droop, follows commands consult OT/ speech / has PT / for repeat CT head this am will need coumadin keep in CVIVU for now 04/16 appreciate Neuro input, on full dose ASA, off Heparin gtt/ concern for conversion f/u CT brain next week if stable, then consider coumadin at that time has left peripheral vision neglect , left arm weakness 2-3/5 ambulated with 2 person assist start low dose BB , gentle diuresis , dc julian cath transfer to stepdown in am continue PT/OT speech / being evaluate for [facility] leave chest tube in today , thick bloody clots 04/17 ct dc without difficulty left arm weakness improving ambulating with assistance and walker ok to transfer to stepdown continue full dose aspirin HGB 7.3/ transfuse 2 units of PRBC with lasix after each unit 04/18 pt had low grade temp yesterday after first unit PRBC second unit not given worsening chest xray , US done approximately 250cc/ fluid no thoracentesis if no improvement with pulm toileting , then may need CT chest continue diuresis / aspiration precaution PT/OT / CT Brain pending as per Neuro / eval for potential anticoagulation pt will also need life vest 04/19 Likely stable Upper extremity strength improving considerably. Left lower lobe atelectasis/pneumonia. On antibiotics. Repeat labs in a.m. Continue aggressive pulmonary toiletry Awaiting rehab evaluation 04/20 Doing well In atrial fibrillation with rate control. Will try Amiodarone conversion Rehab upon discharge Objective: Vital Signs - 24 hr 04/19/18 10:18 04/19/18 10:59 04/19/18 11:00 Temperature 97.6 F Pulse Rate 85 85 68 Respiratory Rate 18 Blood Pressure 106/73 Pulse Oximetry 92 L 04/19/18 12:00 04/19/18 12:53 04/19/18 13:00 Temperature Pulse Rate 66 88 76 Respiratory Rate 18 Blood Pressure Pulse Oximetry 04/19/18 14:02 04/19/18 14:56 04/19/18 15:00 Temperature 98.0 F Pulse Rate 81 72 80 Respiratory Rate 18 Blood Pressure 99/67 L Pulse Oximetry 93 L 04/19/18 16:00 04/19/18 17:34 04/19/18 18:03 Temperature Pulse Rate 81 80 72 Respiratory Rate Blood Pressure Pulse Oximetry 04/19/18 19:00 04/19/18 20:00 04/19/18 20:30 Temperature 99.5 F Pulse Rate 70 74 68 Respiratory Rate 16 18 Blood Pressure 105/63 Pulse Oximetry 97 94 L 04/19/18 21:00 04/19/18 22:00 04/19/18 23:00 Temperature 98.2 F Pulse Rate 83 81 96 H Respiratory Rate 18 Blood Pressure 133/91 H Pulse Oximetry 94 L 04/20/18 00:00 04/20/18 01:00 04/20/18 02:00 Temperature Pulse Rate 83 69 76 Respiratory Rate Blood Pressure Pulse Oximetry 04/20/18 03:00 04/20/18 04:00 04/20/18 05:00 Temperature 97.8 F Pulse Rate 95 H 66 73 Respiratory Rate 16 Blood Pressure 109/70 Pulse Oximetry 95 04/20/18 06:20 04/20/18 07:00 04/20/18 07:18 Temperature 98.4 F Pulse Rate 73 75 79 Respiratory Rate 18 Blood Pressure 111/71 Pulse Oximetry 94 L 04/20/18 08:05 Temperature Pulse Rate 70 Respiratory Rate 18 Blood Pressure Pulse Oximetry Labs: Laboratory Results - last 12 hr 04/17/18 04/20/18 04/20/18 10:32 04:50 07:24 PT 11.0 INR 1.1 POC Glucose 115 H MTS Gel Crossmatch See Detail Result Diagrams: 04/19/18 04:17 04/19/18 04:17 - Plan (1) Severe left ventricular systolic dysfunction Plan: will need elias, eval for Life vest prior to discharge start ELIAS continue diuresis (3) Left ventricular apical thrombus Plan: (5) S/P AVR Plan: on ASA, BB , gentle diuresis pulm toileting (6) Acute CVA (cerebrovascular accident) Plan: ASA, Neuro following PT/OT/ speech therapy will need repeat CT brain possible saturday to eval for anticoagulation eval for [facility] (7) Blood loss anemia Plan: s/p one unit PRBC start ferrous sulfate (8) Pleural effusion Plan: continue diuresis
[2018-04-20] MEDS ORDERED: Amiodarone Inj 150 MG in Dextrose 5% in Water Inj 97 ML IV.SIG ONE ×2 (10:11)
--- NOTE | 2018-04-20 11:26 | P.PNNEU ---
Subjective Subjective Comments: Patient reports significant improvement in left arm and leg strength Telemetry showing atria fibrillation. Active Medications: Active Medications Acetaminophen (Tylenol) 650 mg PO Q4H PRN PRN Reason: FEVER > 101 F Hydrocodone Bitart/Acetaminophen ([place] 5/325) 1 tab PO Q3H PRN PRN Reason: PAIN SCALE 1 TO 5 Last Admin: 04/20/18 08:47 Dose: 1 tab Al Hydroxide/Mg Hydroxide (Milk Of Magnesia Liq) 30 ml PO Q12H PRN PRN Reason: Mild Constipation Al Hydroxide/Mg Hydroxide (Milk Of Magnesia Liq) 30 ml PO DAILY [facility] Last Admin: 04/20/18 09:59 Dose: Not Given Albuterol (Duoneb Neb (Prn)) 1 ampul NEB Q2HR NEB PRN PRN Reason: WHEEZING Albuterol (Duoneb Neb (Nahun)) 1 ampul NEB Q6HR WHILE AWAKE NEB [facility] Last Admin: 04/20/18 08:01 Dose: 1 ampul Aspirin (Aspirin) 325 mg PO DAILY [facility] Last Admin: 04/20/18 08:45 Dose: 325 mg Atorvastatin Calcium (Lipitor) 40 mg PO HS [facility] Last Admin: 04/19/18 20:15 Dose: 40 mg Bisacodyl (Dulcolax Supp) 10 mg RECTAL PRN PRN PRN Reason: SEE LABEL COMMENTS Dextrose (D50w Vial) 50 ml IV.PUSH UNSCH PRN PRN Reason: PER HYPOGLYCEMIA PROTOCOL Digoxin (Lanoxin) 250 mcg PO DAILY [facility] Last Admin: 04/20/18 08:45 Dose: 250 mcg Docusate Sodium (Colace) 100 mg PO BID [facility] Last Admin: 04/20/18 08:45 Dose: 100 mg Ferrous Sulfate (Ferosul) 325 mg PO BID@1200,1700 [facility] Last Admin: 04/19/18 16:35 Dose: 325 mg Furosemide (Lasix Inj) 40 mg IV.PUSH BID@0900,1800 [facility] Last Admin: 04/20/18 08:47 Dose: 40 mg Glucagon (Glucagon Inj) 1 mg OTHER PRN PRN PRN Reason: For hypoglycemia Sodium Chloride (Ns Inj) 1,000 mls @ 100 mls/hr IV.CONT .Q10H [facility] Last Admin: 04/20/18 06:55 Dose: Not Given Piperacillin/Tazobactam/Dextrose (Zosyn 4.5 Gm Premix) 4.5 gm in 100 mls @ 200 mls/hr IV.SIG Q6H [facility] Last Admin: 04/20/18 10:23 Dose: 200 mls/hr Amiodarone HCl 450 mg/ (Dextrose) 250 mls @ 33.33 mls/hr IV.CONT TITRATE PRN; Protocol PRN Reason: Per Protocol Insulin Aspart (Novolog Insulin Correctional Sugar Inj) 0 unit SQ ACHS [facility]; Protocol Last Admin: 04/20/18 07:48 Dose: Not Given Metoprolol Tartrate (Lopressor) 12.5 mg PO BID [facility] Last Admin: 04/20/18 08:44 Dose: 12.5 mg Miscellaneous (Pill Splitter) 1 each OTHER UNSCH [facility] Multivitamins/Minerals (Theragran-M) 1 tab PO DAILY [facility] Last Admin: 04/20/18 08:45 Dose: 1 tab Ondansetron HCl (Zofran Inj) 4 mg IV.PUSH Q6H PRN PRN Reason: NAUSEA OR VOMITING Ondansetron HCl (Zofran Inj) 4 mg IV.PUSH Q6H PRN PRN Reason: NAUSEA OR VOMITING Pantoprazole Sodium (Protonix) 40 mg PO DAILY@06 [facility] Last Admin: 04/20/18 05:08 Dose: 40 mg Polyethylene Glycol (Miralax) 17 gm PO DAILY [facility] Last Admin: 04/20/18 08:44 Dose: 17 gm Potassium Chloride (Klor-Con 10) 10 meq PO DAILY [facility] Last Admin: 04/20/18 08:45 Dose: 10 meq Ramipril (Altace) 2.5 mg PO DAILY [facility] Last Admin: 04/20/18 08:45 Dose: 2.5 mg Senna/Docusate Sodium ([place]-Colace) 1 tab PO BID [facility] Last Admin: 04/20/18 08:45 Dose: 1 tab Sennosides (Senokot) 17.2 mg PO Q12H PRN PRN Reason: Moderate Constipation Sennosides (Senokot) 8.6 mg PO HS [facility] Last Admin: 04/19/18 20:16 Dose: Not Given Sodium Biphosphate/Sodium Phosphate (Fleets Enema (Adult)) 118 ml RECTAL UNSCH PRN PRN Reason: SEE LABEL COMMENTS Allergies/Adverse Reactions: Allergies Allergy/AdvReac Type Severity Reaction Status Date / Time tree and shrub pollen Allergy Intermediate itchy rash Verified 04/10/18 07:48 poison oak extract Allergy Swelling Verified 04/10/18 07:47 of Lip/Tongue/Throat Physical Exam Vital signs: Vital Signs 04/19/18 12:00 04/19/18 12:53 04/19/18 13:00 Temperature Pulse Rate 66 88 76 Respiratory Rate 18 Blood Pressure Pulse Oximetry 04/19/18 14:02 04/19/18 14:56 04/19/18 15:00 Temperature 98.0 F Pulse Rate 81 72 80 Respiratory Rate 18 Blood Pressure 99/67 L Pulse Oximetry 93 L 04/19/18 16:00 04/19/18 17:34 04/19/18 18:03 Temperature Pulse Rate 81 80 72 Respiratory Rate Blood Pressure Pulse Oximetry 04/19/18 19:00 04/19/18 20:00 04/19/18 20:30 Temperature 99.5 F Pulse Rate 70 74 68 Respiratory Rate 16 18 Blood Pressure 105/63 Pulse Oximetry 97 94 L 04/19/18 21:00 04/19/18 22:00 04/19/18 23:00 Temperature 98.2 F Pulse Rate 83 81 96 H Respiratory Rate 18 Blood Pressure 133/91 H Pulse Oximetry 94 L 04/20/18 00:00 04/20/18 01:00 04/20/18 02:00 Temperature Pulse Rate 83 69 76 Respiratory Rate Blood Pressure Pulse Oximetry 04/20/18 03:00 04/20/18 04:00 04/20/18 05:00 Temperature 97.8 F Pulse Rate 95 H 66 73 Respiratory Rate 16 Blood Pressure 109/70 Pulse Oximetry 95 04/20/18 06:20 04/20/18 07:00 04/20/18 07:18 Temperature 98.4 F Pulse Rate 73 75 79 Respiratory Rate 18 Blood Pressure 111/71 Pulse Oximetry 94 L 04/20/18 08:00 04/20/18 08:05 04/20/18 09:00 Temperature Pulse Rate 84 70 80 Respiratory Rate 18 Blood Pressure Pulse Oximetry 04/20/18 10:00 04/20/18 11:00 Temperature 98.0 F Pulse Rate 74 55 L Respiratory Rate 18 Blood Pressure 99/64 L Pulse Oximetry 94 L Intake & Output 04/19/18 04/20/18 04/20/18 18:59 06:59 18:59 Intake Total 1540 / 1540 920 / 920 Output Total 2149 / 2149 Balance -610 / -610 -1080 / -1080 Weight 109.9 kg Intake: IV 200 / 200 200 / 200 Zosyn 4.5 GM Premix 4.5 gm In 200 / 200 200 / 200 100 ml @ 200 mls/hr IV.SIG Q6H [facility] Rx#:[id number] Oral 1340 / 1340 720 / 720 Output: Urine 2149 Other: # Incontinent Voids 1 Date of Last Bowel Movement 04/18/18 04/18/18 04/20/18 - Routine Neurological Exam alert, speech normal CN intact. possible minimal LUMN CN 7 weakness. PERRL, EOM intact MOTOR--5/5 BUE and BLE. Normal fine motor - Urinary Catheter Management Indwelling Temp Sensing Catheter Cath placed during this visit: yes, but has since been removed by the nurse Reason for continuing: Hourly intake/output Insertion date: 04/14/18 Insertion time: 08:00 Removal date: 04/16/18 Removal time: 14:00 Objective Laboratory Results - last 24 hr 04/17/18 04/19/18 04/19/18 10:32 12:03 16:42 PT INR POC Glucose 132 H 153 H MTS Gel Crossmatch See Detail 04/19/18 04/20/18 04/20/18 19:39 04:50 07:24 PT 11.0 INR 1.1 POC Glucose 94 115 H MTS Gel Crossmatch Microbiology 04/19/18 10:15 Gram Stain - Final Sputum - Expectorated Sputum Review/Management - Diagnosis (1) CVA (cerebral vascular accident) Code(s): I63.9 - Cerebral infarction, unspecified Status: Acute Current Visit: Yes - Review/Management Plan: neuro exam is returning to normal will check CT brain today and if no hemorrhage, I feel it anticoagulation is safe to start given his atrial fibrillation to reduce risk of recurrent CVA.
[2018-04-20] MEDS: Ferrous Sulfate 325 MG Tablet PO SCH ×2 (11:40→17:07)
--- NOTE | 2018-04-20 18:52 | CT ---
EXAM DATE: 04/20/2018 6:45 PM EDT AGE/SEX: 52 years / Male INDICATIONS: General weakness, rule out hemorrhage. CLINICAL DATA: This is the patient's initial encounter. Patient reports that signs and symptoms have been present for 1 day and indicates a pain score of 0/10. MEDICAL/SURGICAL HISTORY: Stroke. None. RADIATION DOSE: 64.65 CTDI (mGy) COMPARISON: [facility], CT HEAD W/O CONTRAST, 04/15/2018. [facility], THROMBECTOMY INTRACRANIAL R, 04/14/2018. [facility], CT HEAD W/O CONTRAST, 04/14/2018. [facility], CTA HEAD W CONTRAST W 3D, 04/14/2018. . TECHNIQUE: CT of the head without contrast. Using automated exposure control and adjustment of the mA and/or kV according to patient size, radiation dose was kept as low as reasonably achievable to ob tain optimal diagnostic quality images. DICOM format image data is available electronically for revi ew and comparison. FINDINGS: Cerebrum: Interval increase in the size of hypodensity at site of evolving infarction. There is now involvement of most of the temporal lobe, and a new area of hypodensity in the right posterior dawit n region. Hypodensity in the basal ganglia is similar. No evidence of acute blood products. There has been a mild increase in amount of mass effect, with persistent effacement of the frontal horn and in terval development of 2 mm midline shift at the interventricular septal level. The third ventricle re toribio midline. The left supratentorial brain is normal in appearance. No extra-axial fluid or blood. Posterior Fossa: The cerebellum and brainstem are intact. The 4th ventricle is midline. The cerebe llopontine angle is unremarkable. Extracranial: The visualized portion of the orbits is intact. Skull: The calvaria is intact. No evidence of skull fracture. CONCLUSION: 1. Increasing size nonhemorrhagic right MCA infarction. There is increased mass effect, now with 2 m m subfalcine midline shift. . Electronically signed by: Praveen Shi MD 04/20/2018 6:51 PM EDT
--- NOTE | 2018-04-20 20:58 | P.PNNEU ---
Subjective Subjective Comments: Pt had follow up CT brain Active Medications: Active Medications Acetaminophen (Tylenol) 650 mg PO Q4H PRN PRN Reason: FEVER > 101 F Hydrocodone Bitart/Acetaminophen ([place] 5/325) 1 tab PO Q3H PRN PRN Reason: PAIN SCALE 1 TO 5 Last Admin: 04/20/18 18:51 Dose: 1 tab Al Hydroxide/Mg Hydroxide (Milk Of Magnesia Liq) 30 ml PO Q12H PRN PRN Reason: Mild Constipation Al Hydroxide/Mg Hydroxide (Milk Of Magnesia Liq) 30 ml PO DAILY [facility] Last Admin: 04/20/18 09:59 Dose: Not Given Albuterol (Duoneb Neb (Prn)) 1 ampul NEB Q2HR NEB PRN PRN Reason: WHEEZING Albuterol (Duoneb Neb (Nahun)) 1 ampul NEB Q6HR WHILE AWAKE NEB [facility] Last Admin: 04/20/18 19:09 Dose: 1 ampul Aspirin (Aspirin) 325 mg PO DAILY [facility] Last Admin: 04/20/18 08:45 Dose: 325 mg Atorvastatin Calcium (Lipitor) 40 mg PO HS [facility] Last Admin: 04/20/18 20:28 Dose: 40 mg Bisacodyl (Dulcolax Supp) 10 mg RECTAL PRN PRN PRN Reason: SEE LABEL COMMENTS Dextrose (D50w Vial) 50 ml IV.PUSH UNSCH PRN PRN Reason: PER HYPOGLYCEMIA PROTOCOL Digoxin (Lanoxin) 250 mcg PO DAILY [facility] Last Admin: 04/20/18 08:45 Dose: 250 mcg Docusate Sodium (Colace) 100 mg PO BID [facility] Last Admin: 04/20/18 08:45 Dose: 100 mg Ferrous Sulfate (Ferosul) 325 mg PO BID@1200,1700 [facility] Last Admin: 04/20/18 17:07 Dose: 325 mg Furosemide (Lasix Inj) 40 mg IV.PUSH BID@0900,1800 [facility] Last Admin: 04/20/18 17:07 Dose: 40 mg Glucagon (Glucagon Inj) 1 mg OTHER PRN PRN PRN Reason: For hypoglycemia Sodium Chloride (Ns Inj) 1,000 mls @ 100 mls/hr IV.CONT .Q10H [facility] Last Admin: 04/20/18 12:28 Dose: Not Given Piperacillin/Tazobactam/Dextrose (Zosyn 4.5 Gm Premix) 4.5 gm in 100 mls @ 200 mls/hr IV.SIG Q6H [facility] Last Infusion: 04/20/18 18:20 Dose: Infused Amiodarone HCl 450 mg/ (Dextrose) 250 mls @ 33.33 mls/hr IV.CONT TITRATE PRN; Protocol PRN Reason: Per Protocol Insulin Aspart (Novolog Insulin Correctional Sugar Inj) 0 unit SQ ACHS [facility]; Protocol Last Admin: 04/20/18 17:18 Dose: Not Given Metoprolol Tartrate (Lopressor) 12.5 mg PO BID [facility] Last Admin: 04/20/18 20:29 Dose: 12.5 mg Miscellaneous (Pill Splitter) 1 each OTHER UNSCH [facility] Multivitamins/Minerals (Theragran-M) 1 tab PO DAILY [facility] Last Admin: 04/20/18 08:45 Dose: 1 tab Ondansetron HCl (Zofran Inj) 4 mg IV.PUSH Q6H PRN PRN Reason: NAUSEA OR VOMITING Ondansetron HCl (Zofran Inj) 4 mg IV.PUSH Q6H PRN PRN Reason: NAUSEA OR VOMITING Pantoprazole Sodium (Protonix) 40 mg PO DAILY@06 [facility] Last Admin: 04/20/18 05:08 Dose: 40 mg Polyethylene Glycol (Miralax) 17 gm PO DAILY [facility] Last Admin: 04/20/18 08:44 Dose: 17 gm Potassium Chloride (Klor-Con 10) 10 meq PO DAILY [facility] Last Admin: 04/20/18 08:45 Dose: 10 meq Ramipril (Altace) 2.5 mg PO DAILY [facility] Last Admin: 04/20/18 08:45 Dose: 2.5 mg Senna/Docusate Sodium (Lizett-Colace) 1 tab PO BID [facility] Last Admin: 04/20/18 08:45 Dose: 1 tab Sennosides (Senokot) 17.2 mg PO Q12H PRN PRN Reason: Moderate Constipation Sennosides (Senokot) 8.6 mg PO HS [facility] Last Admin: 04/19/18 20:16 Dose: Not Given Sodium Biphosphate/Sodium Phosphate (Fleets Enema (Adult)) 118 ml RECTAL UNSCH PRN PRN Reason: SEE LABEL COMMENTS Allergies/Adverse Reactions: Allergies Allergy/AdvReac Type Severity Reaction Status Date / Time tree and shrub pollen Allergy Intermediate itchy rash Verified 04/10/18 07:48 poison oak extract Allergy Swelling Verified 04/10/18 07:47 of Lip/Tongue/Throat Physical Exam Vital signs: Vital Signs 04/19/18 21:00 04/19/18 22:00 04/19/18 23:00 Temperature 98.2 F Pulse Rate 83 81 96 H Respiratory Rate 18 Blood Pressure 133/91 H Pulse Oximetry 94 L 04/20/18 00:00 04/20/18 01:00 04/20/18 02:00 Temperature Pulse Rate 83 69 76 Respiratory Rate Blood Pressure Pulse Oximetry 04/20/18 03:00 04/20/18 04:00 04/20/18 05:00 Temperature 97.8 F Pulse Rate 95 H 66 73 Respiratory Rate 16 Blood Pressure 109/70 Pulse Oximetry 95 04/20/18 06:20 04/20/18 07:00 04/20/18 07:18 Temperature 98.4 F Pulse Rate 73 75 79 Respiratory Rate 18 Blood Pressure 111/71 Pulse Oximetry 94 L 04/20/18 08:00 04/20/18 08:05 04/20/18 09:00 Temperature Pulse Rate 84 70 80 Respiratory Rate 18 Blood Pressure Pulse Oximetry 04/20/18 10:00 04/20/18 11:00 04/20/18 12:00 Temperature 98.0 F Pulse Rate 74 79 76 Respiratory Rate 18 Blood Pressure 99/64 L Pulse Oximetry 94 L 04/20/18 13:00 04/20/18 14:00 04/20/18 14:22 Temperature Pulse Rate 84 70 73 Respiratory Rate 18 Blood Pressure Pulse Oximetry 04/20/18 15:00 04/20/18 15:35 04/20/18 16:00 Temperature 97.9 F Pulse Rate 74 74 80 Respiratory Rate 20 Blood Pressure 107/72 Pulse Oximetry 94 L 04/20/18 17:00 04/20/18 18:00 04/20/18 19:11 Temperature Pulse Rate 86 80 79 Respiratory Rate 18 Blood Pressure Pulse Oximetry Intake & Output 04/20/18 04/20/18 04/21/18 06:59 18:59 06:59 Intake Total 920 / 920 680 / 680 Output Total 1999 1250 / 1250 Balance -1080 / -1080 -570 / -570 Weight 109.9 kg Intake: IV 200 / 200 200 / 200 Zosyn 4.5 GM Premix 4.5 gm In 200 / 200 200 / 200 100 ml @ 200 mls/hr IV.SIG Q6H NAHUN Rx#:[id number] Oral 720 / 720 480 / 480 Output: Urine 1999 1250 / 1250 Other: Date of Last Bowel Movement 04/18/18 04/20/18 - Urinary Catheter Management Indwelling Temp Sensing Catheter Cath placed during this visit: yes, but has since been removed by the nurse Reason for continuing: Hourly intake/output Insertion date: 04/14/18 Insertion time: 08:00 Removal date: 04/16/18 Removal time: 14:00 Objective Radiology Results: CT daniel shows persistent edema with slight increase mass effect from prior CT scan. There is no hemorrhage Laboratory Results - last 24 hr 04/17/18 04/20/18 04/20/18 10:32 04:50 07:24 PT 11.0 INR 1.1 POC Glucose 115 H MTS Gel Crossmatch See Detail 04/20/18 04/20/18 11:39 17:05 PT INR POC Glucose 102 135 H MTS Gel Crossmatch Microbiology 04/19/18 10:15 Gram Stain - Final Sputum - Expectorated Sputum Sputum Culture - Preliminary Heavy growth normal respiratory hannah at 24 hours Review/Management - Diagnosis (1) CVA (cerebral vascular accident) Code(s): I63.9 - Cerebral infarction, unspecified Status: Acute Current Visit: Yes - Review/Management Plan: Although pt is doing very well clinically in his neurologic recovery, he still has a significant amount of edema with slight increase mass effect from the stroke. I would recommend not starting anticoagulation at this time due to the risk of hemorrhagic conversion of the stroke based on his CT findings. I recommend repeat CT in a few days and reconsider anticoagulation at that time.
[2018-04-21] MEDS: Docusate Sodium 100 MG Capsule PO SCH ×3 (00:19→20:36)
[2018-04-21] MEDS: Senna/Docusate Sodium 8.6/50 MG Tablet PO SCH ×3 (00:20→20:37)
[2018-04-21] MEDS: Sod Chloride 0.9% Inj 1,000 ML IV.CONT SCH ×3 (00:21→18:41)
[2018-04-21 03:57] LABS: Hematocrit 26.7 % (39.0-51.0); Hemoglobin 8.8 gm/dL (13.0-17.0); Mean Corpuscular Hemoglobin 30.5 pg (27.0-34.0); Mean Corpuscular Volume 92.4 fL (80.0-100.0); Mean Platelet Volume 7.7 fL (7.0-11.0); Platelet Count 411 th/mm3 (150-450); Red Blood Count 2.89 mil/mm3 (4.50-5.90); Red Cell Distribution Width 14.9 % (11.6-17.2); White Blood Count 14.9 th/mm3 (4.0-11.0)
[2018-04-21 04:05] LABS: INR 1.2 Ratio; Prothrombin Time 12.1 sec (9.8-11.6)
[2018-04-21 04:19] LABS: Calcium 8.6 mg/dL (8.5-10.1); Potassium 3.7 meq/L (3.5-5.1)
[2018-04-21] MEDS: Piperacil/Tazo 4.5 GM Premix 4.5 GM/100 ML BAG IV.SIG SCH ×4 (05:08→22:12)
[2018-04-21] MEDS: Insulin NovoLOG Aspart Correctional Sugar Inj SQ SCH ×4 (06:41→16:31)
[2018-04-21] MEDS: Multivitamin/Minerals Therapeutic Tablet PO SCH (09:02)
[2018-04-21] MEDS: Polyethylene Glycol 3350 17 GM Packet PO SCH (09:02)
[2018-04-21] MEDS: Ramipril 2.5 MG Capsule PO SCH (09:03)
[2018-04-21] MEDS: Digoxin 250 MCG Tablet PO SCH (09:03)
[2018-04-21] MEDS: Aspirin 325 MG Tablet PO SCH (09:03)
[2018-04-21] MEDS: Metoprolol Tartrate 25 MG Tablet PO SCH ×2 (09:04→20:37)
[2018-04-21] MEDS: Ferrous Sulfate 325 MG Tablet PO SCH ×2 (11:57→16:30)
--- NOTE | 2018-04-21 16:50 | P.PNCV ---
- Note Subjective/Hospital Course: This 52-year-old male presented to the emergency room with shortness of breath without exertion for the last month. No syncope or chest pain, but the breathing has become worse over the past week. He has not seen a physician since 2008. He was seen in the past for fatigue and worked up for presyncope in 2005, was seen at that time by Dr. Calderon, was found to have some heart murmur , had an echo, was told he had some aortic valve involvement. The patient presented with a troponin of 0.41. However, the heart catheterization showed no evidence of coronary disease, possibly elevated due to critical aortic stenosis. He underwent also an echocardiogram which showed a valve area of 0.38 , with some trace tricuspid valve regurgitation, trace mitral valve regurgitation, pulmonary artery pressures of 29 mmHg, ejection fraction of 15%, diffuse global AP hypokinesis. There was also a small 12 x 14 mm, round mobile calcified apical left ventricular thrombus. We were consulted for aortic valve replacement. 04/11 The ECHO and angiographic findings were discussed in detail with the patient and his family. The option of mechanical versus tissue valve was discussed in detail as well as the advantages and disadvantages of both types of valves. He understands the provided information and wishes to opt for the tissue valve to avoid life-long anticoagulation therapy. The risks, complications including but not limited to bleeding, infection, stroke, myocardial injury and , and benefits of the surgical procedure were discussed in details and all questions answered. He understands the provided information and agrees to proceed with the planned operation. We will plan on proceeding with the surgical procedure as describe above on Saturday. Thank you for allowing me to participate in the care of this patient. surgery: 04/14 PREOPERATIVE DIAGNOSES 1. Critical Aortic Stenosis. 2. Severe Left Ventricular Dysfunction (EF 15%) 3. NSTEMI 4. Left Ventricular Apical Thrombus POSTOPERATIVE DIAGNOSES Same SURGICAL PROCEDURE Aortic Valve Replacement with a 29 mm Medtronic Mosaic Cinch Tissue valve. crystalloid 4000cc, cell saver 1000cc, EBL 2000cc stroke alert called 15 min after arrival to CVICU left sided weakness, left facial drooping stat CTA head showed acute right MCA stroke thrombectomy completed by IR, placed on Heparin gtt 04/15 Bp stable , low dose lasix given , follows commands , moving left arm and leg , left arm 3/5 left leg 4/5 left facial droop, follows commands consult OT/ speech / has PT / for repeat CT head this am will need coumadin keep in CVIVU for now 04/16 appreciate Neuro input, on full dose ASA, off Heparin gtt/ concern for conversion f/u CT brain next week if stable, then consider coumadin at that time has left peripheral vision neglect , left arm weakness 2-3/5 ambulated with 2 person assist start low dose BB , gentle diuresis , dc julian cath transfer to stepdown in am continue PT/OT speech / being evaluate for [facility] leave chest tube in today , thick bloody clots 04/17 ct dc without difficulty left arm weakness improving ambulating with assistance and walker ok to transfer to stepdown continue full dose aspirin HGB 7.3/ transfuse 2 units of PRBC with lasix after each unit 04/18 pt had low grade temp yesterday after first unit PRBC second unit not given worsening chest xray , US done approximately 250cc/ fluid no thoracentesis if no improvement with pulm toileting , then may need CT chest continue diuresis / aspiration precaution PT/OT / CT Brain pending as per Neuro / eval for potential anticoagulation pt will also need life vest 04/19 Likely stable Upper extremity strength improving considerably. Left lower lobe atelectasis/pneumonia. On antibiotics. Repeat labs in a.m. Continue aggressive pulmonary toiletry Awaiting rehab evaluation 04/20 Doing well In atrial fibrillation with rate control. Will try Amiodarone conversion Rehab upon discharge 04/21 remains in afib rate controlled dose with 150mg amiodarone x 1 decrease diuresis Objective: Vital Signs - 24 hr 04/20/18 17:00 04/20/18 18:00 04/20/18 19:00 Temperature 98.4 F Pulse Rate 86 80 82 Respiratory Rate 18 Blood Pressure 116/66 Pulse Oximetry 96 04/20/18 19:11 04/20/18 20:00 04/20/18 21:00 Temperature Pulse Rate 79 80 79 Respiratory Rate 18 Blood Pressure Pulse Oximetry 96 04/20/18 22:00 04/20/18 23:00 04/20/18 23:06 Temperature 97.9 F Pulse Rate 78 81 81 Respiratory Rate 20 Blood Pressure 97/65 L Pulse Oximetry 93 L 04/21/18 00:07 04/21/18 01:00 04/21/18 03:00 Temperature 98.6 F Pulse Rate 76 80 78 Respiratory Rate 18 Blood Pressure 108/67 Pulse Oximetry 93 L 04/21/18 04:08 04/21/18 05:00 04/21/18 06:00 Temperature Pulse Rate 81 77 68 Respiratory Rate Blood Pressure Pulse Oximetry 04/21/18 07:00 04/21/18 08:00 04/21/18 08:18 Temperature 98.6 F Pulse Rate 74 92 H 60 Respiratory Rate 20 15 Blood Pressure 115/66 Pulse Oximetry 97 97 04/21/18 09:00 04/21/18 09:44 04/21/18 10:00 Temperature Pulse Rate 84 74 Respiratory Rate 16 Blood Pressure Pulse Oximetry 04/21/18 11:00 04/21/18 12:00 04/21/18 13:00 Temperature 97.6 F Pulse Rate 66 75 78 Respiratory Rate 18 Blood Pressure 123/55 L Pulse Oximetry 98 04/21/18 14:00 04/21/18 14:13 04/21/18 15:00 Temperature Pulse Rate 72 70 100 H Respiratory Rate 15 Blood Pressure Pulse Oximetry Labs: Laboratory Results - last 12 hr 04/21/18 04/21/18 04/21/18 07:45 11:17 16:29 POC Glucose 136 H 117 H 126 H Result Diagrams: 04/21/18 03:39 04/21/18 03:39 Telemetry: afib - Plan (1) Severe left ventricular systolic dysfunction Plan: will need elias, eval for Life vest prior to discharge ELIAS continue diuresis (3) Left ventricular apical thrombus Plan: (5) S/P AVR Plan: on ASA, BB , gentle diuresis pulm toileting (6) Blood loss anemia Plan: s/p one unit PRBC start ferrous sulfate (7) Pleural effusion Plan: continue diuresis (8) Acute CVA (cerebrovascular accident) Plan: ASA, Neuro following PT/OT/ speech therapy will need repeat CT brain possible as per Neuro eval [facility]
[2018-04-21] MEDS ORDERED: Amiodarone Inj 150 MG in Dextrose 5% in Water Inj 97 ML IV.SIG ONE ×2 (17:30)
[2018-04-21] MEDS: Acetaminophen 325 MG Tablet PO PRN (20:38)
[2018-04-21] MEDS ORDERED: Temazepam 15 MG Capsule PO ONE (21:00)
[2018-04-22] MEDS: Acetaminophen 325 MG Tablet PO PRN ×4 (03:13→20:44)
[2018-04-22 04:42] LABS: Hematocrit 24.3 % (39.0-51.0); Hemoglobin 8.1 gm/dL (13.0-17.0); Mean Corpuscular HGB Conc 33.4 % (32.0-36.0); Mean Corpuscular Hemoglobin 30.7 pg (27.0-34.0); Mean Corpuscular Volume 91.8 fL (80.0-100.0); Mean Platelet Volume 7.4 fL (7.0-11.0); Platelet Count 415 th/mm3 (150-450); Red Blood Count 2.65 mil/mm3 (4.50-5.90); Red Cell Distribution Width 14.6 % (11.6-17.2); White Blood Count 14.1 th/mm3 (4.0-11.0)
[2018-04-22 05:03] LABS: Calcium 8.2 mg/dL (8.5-10.1); Carbon Dioxide 30.4 meq/L (21.0-32.0); Magnesium 2.4 mg/dL (1.5-2.5); Potassium 3.7 meq/L (3.5-5.1)
[2018-04-22] MEDS: Sod Chloride 0.9% Inj 1,000 ML IV.CONT SCH ×2 (05:10→18:40)
[2018-04-22] MEDS: Piperacil/Tazo 4.5 GM Premix 4.5 GM/100 ML BAG IV.SIG SCH ×4 (05:21→23:23)
--- NOTE | 2018-04-22 05:46 | XR ---
EXAM DATE: 04/22/2018 5:13 AM EDT AGE/SEX: 52 years / Male INDICATIONS: Short of breath. CLINICAL DATA: This is the patient's subsequent encounter. Patient reports that signs and symptoms h ave been present for 1 week and indicates a pain score of 0/10. MEDICAL/SURGICAL HISTORY: Cardiovascular disease. CABG. COMPARISON: [facility] – [place], CHEST 1V SINGLE AP, 04/18/2018. . FINDINGS: A single AP view of the chest demonstrates no significant change. Significant cardiomegaly remains. S ignificant consolidation and small left effusion are stable. Right lung is clear although hypoinflate d. Median sternotomy wires noted. CONCLUSION: Unchanged exam. Electronically signed by: Praveen Justin MD 04/22/2018 5:45 AM EDT
[2018-04-22] MEDS: Aspirin 325 MG Tablet PO SCH (08:38)
[2018-04-22] MEDS: Digoxin 250 MCG Tablet PO SCH (08:39)
[2018-04-22] MEDS: Metoprolol Tartrate 25 MG Tablet PO SCH (08:39)
[2018-04-22] MEDS: Ramipril 2.5 MG Capsule PO SCH (08:39)
[2018-04-22] MEDS: Multivitamin/Minerals Therapeutic Tablet PO SCH (08:39)
[2018-04-22] MEDS: Polyethylene Glycol 3350 17 GM Packet PO SCH (08:41)
[2018-04-22] MEDS: Docusate Sodium 100 MG Capsule PO SCH ×2 (08:41→20:43)
[2018-04-22] MEDS: Senna/Docusate Sodium 8.6/50 MG Tablet PO SCH ×2 (08:41→20:43)
[2018-04-22] MEDS: Ferrous Sulfate 325 MG Tablet PO SCH ×2 (11:00→17:18)
--- NOTE | 2018-04-22 16:27 | P.RAD ---
Post Procedure Progress Note - Pre Procedure Diagnosis (1) Pleural effusion, left - Post Procedure Diagnosis (1) Pleural effusion, left - Procedure Information Supervising Radiologist: Gerhard Ramirez MD Estimated blood loss (mL): 0 Anesthesia: Local - Plan of Activity Patient to Unit: Other Patient Condition: Good See PACS Report for procedural detail/treatment. Drainage Procedure Ultrasound left Thoracentesis Drainage: Suction Fluid Removal (CCs): 100 Fluid Description: Bloody Findings: complex septated small pleural effusion. Most of CXR appearance is related to atalectasis or consolidation. Effusion too septated to completely drain. Plan: post CXR then return to floor.
--- NOTE | 2018-04-22 16:48 | XR ---
EXAM DATE: 04/22/2018 4:43 PM EDT AGE/SEX: 52 years / Male INDICATIONS: Post left thoracentesis. CLINICAL DATA: This is the patient's initial encounter. Patient reports that signs and symptoms have been present for 1 day and indicates a pain score of 2/10. MEDICAL/SURGICAL HISTORY: . Cerebral vascular accident. Aortic regurgitation. Post thrombectomy . . COMPARISON: [facility] – [place], CHEST 1V SINGLE AP, 04/22/2018. [facility], CHEST 1V SINGLE AP, 04/18/2018. [facility], CHEST 1V SINGLE AP, 04/15/2018. . FINDINGS: Portable upright expiratory view of the chest demonstrates no pneumothorax following recent left thor acentesis. Cardiac silhouette size remains enlarged and there is a moderate size left pleural parench ymal opacity with atelectasis at the right lung base. CONCLUSION: 1. No pneumothorax following recent left thoracentesis. 2. Persistent moderate left pleural parenchymal opacity representing a complex septated pleural effu ksiha with associated compressive atelectasis. Electronically signed by: Gerhard Ramirez MD 04/22/2018 4:46 PM EDT
--- NOTE | 2018-04-22 16:50 | P.PNCV ---
- Note Subjective/Hospital Course: This 52-year-old male presented to the emergency room with shortness of breath without exertion for the last month. No syncope or chest pain, but the breathing has become worse over the past week. He has not seen a physician since 2008. He was seen in the past for fatigue and worked up for presyncope in 2005, was seen at that time by Dr. Calderon, was found to have some heart murmur , had an echo, was told he had some aortic valve involvement. The patient presented with a troponin of 0.41. However, the heart catheterization showed no evidence of coronary disease, possibly elevated due to critical aortic stenosis. He underwent also an echocardiogram which showed a valve area of 0.38 , with some trace tricuspid valve regurgitation, trace mitral valve regurgitation, pulmonary artery pressures of 29 mmHg, ejection fraction of 15%, diffuse global AP hypokinesis. There was also a small 12 x 14 mm, round mobile calcified apical left ventricular thrombus. We were consulted for aortic valve replacement. 04/11 The ECHO and angiographic findings were discussed in detail with the patient and his family. The option of mechanical versus tissue valve was discussed in detail as well as the advantages and disadvantages of both types of valves. He understands the provided information and wishes to opt for the tissue valve to avoid life-long anticoagulation therapy. The risks, complications including but not limited to bleeding, infection, stroke, myocardial injury and , and benefits of the surgical procedure were discussed in details and all questions answered. He understands the provided information and agrees to proceed with the planned operation. We will plan on proceeding with the surgical procedure as describe above on Saturday. Thank you for allowing me to participate in the care of this patient. surgery: 04/14 PREOPERATIVE DIAGNOSES 1. Critical Aortic Stenosis. 2. Severe Left Ventricular Dysfunction (EF 15%) 3. NSTEMI 4. Left Ventricular Apical Thrombus POSTOPERATIVE DIAGNOSES Same SURGICAL PROCEDURE Aortic Valve Replacement with a 29 mm Medtronic Mosaic Cinch Tissue valve. crystalloid 4000cc, cell saver 1000cc, EBL 2000cc stroke alert called 15 min after arrival to CVICU left sided weakness, left facial drooping stat CTA head showed acute right MCA stroke thrombectomy completed by IR, placed on Heparin gtt 04/15 Bp stable , low dose lasix given , follows commands , moving left arm and leg , left arm 3/5 left leg 4/5 left facial droop, follows commands consult OT/ speech / has PT / for repeat CT head this am will need coumadin keep in CVIVU for now 04/16 appreciate Neuro input, on full dose ASA, off Heparin gtt/ concern for conversion f/u CT brain next week if stable, then consider coumadin at that time has left peripheral vision neglect , left arm weakness 2-3/5 ambulated with 2 person assist start low dose BB , gentle diuresis , dc julian cath transfer to stepdown in am continue PT/OT speech / being evaluate for [facility] leave chest tube in today , thick bloody clots 04/17 ct dc without difficulty left arm weakness improving ambulating with assistance and walker ok to transfer to stepdown continue full dose aspirin HGB 7.3/ transfuse 2 units of PRBC with lasix after each unit 04/18 pt had low grade temp yesterday after first unit PRBC second unit not given worsening chest xray , US done approximately 250cc/ fluid no thoracentesis if no improvement with pulm toileting , then may need CT chest continue diuresis / aspiration precaution PT/OT / CT Brain pending as per Neuro / eval for potential anticoagulation pt will also need life vest 04/19 Likely stable Upper extremity strength improving considerably. Left lower lobe atelectasis/pneumonia. On antibiotics. Repeat labs in a.m. Continue aggressive pulmonary toiletry Awaiting rehab evaluation 04/20 Doing well In atrial fibrillation with rate control. Will try Amiodarone conversion Rehab upon discharge 04/21 remains in afib rate controlled dose with 150mg amiodarone x 1 decrease diuresis 04/22 worsening CXR / increased fluid collection vs consolidation left lung both calves more swollen, non tender to pt US thoracentesis vs CT guided pending US of lower ext pending pt still will require life vest for discharge await repeat CT Brain for possible anticoagulation convert to NSR Objective: Vital Signs - 24 hr 04/21/18 17:00 04/21/18 18:00 04/21/18 19:00 Temperature Pulse Rate 82 88 86 Respiratory Rate Blood Pressure Pulse Oximetry 04/21/18 20:00 04/21/18 21:00 04/21/18 21:17 Temperature 98.0 F Pulse Rate 70 80 57 L Respiratory Rate 18 18 Blood Pressure 108/70 Pulse Oximetry 96 93 L 04/21/18 22:08 04/21/18 23:00 04/22/18 00:00 Temperature 98.1 F Pulse Rate 73 77 Respiratory Rate 18 18 Blood Pressure 111/58 L Pulse Oximetry 93 L 04/22/18 01:00 04/22/18 02:00 04/22/18 03:00 Temperature Pulse Rate 71 79 79 Respiratory Rate Blood Pressure Pulse Oximetry 04/22/18 04:00 04/22/18 05:00 04/22/18 05:09 Temperature 98.2 F Pulse Rate 79 80 Respiratory Rate 18 18 Blood Pressure 113/70 Pulse Oximetry 93 L 04/22/18 06:00 04/22/18 07:00 04/22/18 08:00 Temperature 98.3 F Pulse Rate 75 69 68 Respiratory Rate 16 Blood Pressure 120/64 Pulse Oximetry 94 L 04/22/18 09:00 04/22/18 09:12 04/22/18 10:00 Temperature Pulse Rate 88 61 66 Respiratory Rate 18 Blood Pressure Pulse Oximetry 04/22/18 11:00 04/22/18 12:00 04/22/18 13:00 Temperature 97.4 F L Pulse Rate 68 82 84 Respiratory Rate 16 Blood Pressure 134/65 Pulse Oximetry 97 04/22/18 13:19 04/22/18 14:00 04/22/18 15:30 Temperature 98.1 F Pulse Rate 75 68 114 H Respiratory Rate 18 18 Blood Pressure 107/64 Pulse Oximetry 94 L 04/22/18 15:42 04/22/18 16:33 Temperature 98.6 F Pulse Rate 72 78 Respiratory Rate 20 20 Blood Pressure 108/43 L 101/64 Pulse Oximetry 93 L 91 L GENERAL: A&O x 3 SKIN: Warm and dry. sternal incision intact and well approximated HEAD: Normocephalic. EYES: No scleral icterus. No injection or drainage. NECK: Supple, trachea midline. No JVD or lymphadenopathy. CARDIOVASCULAR: Regular rate and rhythm without murmurs, gallops, or rubs. RESPIRATORY: Breath sounds equal bilaterally. No accessory muscle use. diminished left lower lobe GASTROINTESTINAL: Abdomen soft, non-tender, nondistended. MUSCULOSKELETAL: No cyanosis, or edema. BACK: Nontender without obvious deformity. No CVA tenderness. Labs: Laboratory Results - last 12 hr 04/22/18 04/22/18 04/22/18 04:31 07:52 10:57 Sodium 132 L Potassium 3.7 Chloride 94 L Carbon Dioxide 30.4 Anion Gap 8 BUN 17 Creatinine 1.08 Estimated GFR 72 L POC Glucose 126 H 118 H Random Glucose 107 H Calcium 8.2 L Magnesium 2.4 Result Diagrams: 04/22/18 04:31 04/22/18 04:31 - Plan (1) Severe left ventricular systolic dysfunction Plan: will need elias, eval for Life vest prior to discharge ELIAS continue diuresis/ increase dose (3) Left ventricular apical thrombus Plan: (5) S/P AVR Plan: on ASA, BB , gentle diuresis pulm toileting (6) Blood loss anemia Plan: s/p one unit PRBC start ferrous sulfate (7) Pleural effusion Plan: continue diuresis s/p thoracentesis drained 100cc bloody drainage (8) Acute CVA (cerebrovascular accident) Plan: ASA, Neuro following PT/OT/ speech therapy will need repeat CT brain possible as per Neuro eval for anticoagulation eval for [place] [facility]
--- NOTE | 2018-04-22 17:30 | US ---
EXAM DATE: 04/22/2018 5:11 PM EDT AGE/SEX: 52 years / Male INDICATIONS: Bilateral lower extremity edema. CLINICAL DATA: This is the patient's subsequent encounter. Patient reports that signs and symptoms h ave been present for 2 days and indicates a pain score of 0/10. MEDICAL/SURGICAL HISTORY: . Aortic valve regurgitation. Palpitations. None. COMPARISON: No prior exams available for comparison. TECHNIQUE: Venous ultrasound of both lower extremities was performed from the inguinal ligament to t he proximal calf. Real-time, color Doppler and spectral tracing, compression and augmentation techni ques were used. FINDINGS: Right Leg: Normal compression of the deep venous system from the inguinal region to the proximal ángel f. No echogenic clot is seen. Normal response of the venous system to augmentation and respiration. Left Leg: Normal compression of the deep venous system from the inguinal region to the proximal calf . No echogenic clot is seen. Normal response of the venous system to augmentation and respiration. Other: None. CONCLUSION: 1. The study is negative for bilateral lower extremity deep venous thrombosis. Electronically signed by: Alberto Marie MD 04/22/2018 5:29 PM EDT
--- NOTE | 2018-04-22 21:05 | P.PNNEU ---
Subjective Subjective Comments: No new neurologic sx. He feels left side strength is stable had thoracentesis today Active Medications: Active Medications Acetaminophen (Tylenol) 650 mg PO Q4H PRN PRN Reason: FEVER > 101 F Last Admin: 04/22/18 20:44 Dose: 650 mg Hydrocodone Bitart/Acetaminophen ([place] 5/325) 1 tab PO Q3H PRN PRN Reason: PAIN SCALE 1 TO 5 Last Admin: 04/21/18 16:30 Dose: 1 tab Al Hydroxide/Mg Hydroxide (Milk Of Magnesia Liq) 30 ml PO Q12H PRN PRN Reason: Mild Constipation Al Hydroxide/Mg Hydroxide (Milk Of Magnesia Liq) 30 ml PO DAILY [facility] Last Admin: 04/22/18 08:41 Dose: Not Given Albuterol (Duoneb Neb (Prn)) 1 ampul NEB Q2HR NEB PRN PRN Reason: WHEEZING Aspirin (Aspirin) 325 mg PO DAILY [facility] Last Admin: 04/22/18 08:38 Dose: 325 mg Atorvastatin Calcium (Lipitor) 40 mg PO HS [facility] Last Admin: 04/22/18 20:42 Dose: 40 mg Bisacodyl (Dulcolax Supp) 10 mg RECTAL PRN PRN PRN Reason: SEE LABEL COMMENTS Carvedilol (Coreg) 3.125 mg PO BID [facility] Last Admin: 04/22/18 20:43 Dose: 3.125 mg Dextrose (D50w Vial) 50 ml IV.PUSH UNSCH PRN PRN Reason: PER HYPOGLYCEMIA PROTOCOL Digoxin (Lanoxin) 250 mcg PO DAILY [facility] Last Admin: 04/22/18 08:39 Dose: 250 mcg Docusate Sodium (Colace) 100 mg PO BID [facility] Last Admin: 04/22/18 20:43 Dose: Not Given Ferrous Sulfate (Ferosul) 325 mg PO BID@1200,1700 [facility] Last Admin: 04/22/18 17:18 Dose: 325 mg Furosemide (Lasix Inj) 40 mg IV.PUSH BID@0900,1800 [facility] Last Admin: 04/22/18 17:19 Dose: 40 mg Glucagon (Glucagon Inj) 1 mg OTHER PRN PRN PRN Reason: For hypoglycemia Sodium Chloride (Ns Inj) 1,000 mls @ 100 mls/hr IV.CONT .Q10H [facility] Last Admin: 04/22/18 18:40 Dose: Not Given Piperacillin/Tazobactam/Dextrose (Zosyn 4.5 Gm Premix) 4.5 gm in 100 mls @ 200 mls/hr IV.SIG Q6H [facility] Last Infusion: 04/22/18 18:25 Dose: Infused Miscellaneous (Pill Splitter) 1 each OTHER UNSCH [facility] Multivitamins/Minerals (Theragran-M) 1 tab PO DAILY [facility] Last Admin: 04/22/18 08:39 Dose: 1 tab Ondansetron HCl (Zofran Inj) 4 mg IV.PUSH Q6H PRN PRN Reason: NAUSEA OR VOMITING Ondansetron HCl (Zofran Inj) 4 mg IV.PUSH Q6H PRN PRN Reason: NAUSEA OR VOMITING Pantoprazole Sodium (Protonix) 40 mg PO DAILY@06 [facility] Last Admin: 04/22/18 05:22 Dose: 40 mg Polyethylene Glycol (Miralax) 17 gm PO DAILY [facility] Last Admin: 04/22/18 08:41 Dose: Not Given Potassium Chloride (Klor-Con 10) 10 meq PO DAILY [facility] Last Admin: 04/22/18 08:39 Dose: 10 meq Ramipril (Altace) 2.5 mg PO DAILY [facility] Last Admin: 04/22/18 08:39 Dose: 2.5 mg Senna/Docusate Sodium (Lizett-Colace) 1 tab PO BID [facility] Last Admin: 04/22/18 20:43 Dose: Not Given Sennosides (Senokot) 17.2 mg PO Q12H PRN PRN Reason: Moderate Constipation Sennosides (Senokot) 8.6 mg PO HS [facility] Last Admin: 04/22/18 20:43 Dose: Not Given Sodium Biphosphate/Sodium Phosphate (Fleets Enema (Adult)) 118 ml RECTAL UNSCH PRN PRN Reason: SEE LABEL COMMENTS Allergies/Adverse Reactions: Allergies Allergy/AdvReac Type Severity Reaction Status Date / Time tree and shrub pollen Allergy Intermediate itchy rash Verified 04/10/18 07:48 poison oak extract Allergy Swelling Verified 04/10/18 07:47 of Lip/Tongue/Throat Physical Exam Vital signs: Vital Signs 04/21/18 21:17 04/21/18 22:08 04/21/18 23:00 Temperature Pulse Rate 57 L 73 Respiratory Rate 18 18 Blood Pressure Pulse Oximetry 93 L 04/22/18 00:00 04/22/18 01:00 04/22/18 02:00 Temperature 98.1 F Pulse Rate 77 71 79 Respiratory Rate 18 Blood Pressure 111/58 L Pulse Oximetry 93 L 04/22/18 03:00 04/22/18 04:00 04/22/18 05:00 Temperature 98.2 F Pulse Rate 79 79 80 Respiratory Rate 18 Blood Pressure 113/70 Pulse Oximetry 93 L 04/22/18 05:09 04/22/18 06:00 04/22/18 07:00 Temperature Pulse Rate 75 69 Respiratory Rate 18 Blood Pressure Pulse Oximetry 04/22/18 08:00 04/22/18 09:00 04/22/18 09:12 Temperature 98.3 F Pulse Rate 68 88 61 Respiratory Rate 16 18 Blood Pressure 120/64 Pulse Oximetry 94 L 04/22/18 10:00 04/22/18 11:00 04/22/18 12:00 Temperature 97.4 F L Pulse Rate 66 68 82 Respiratory Rate 16 Blood Pressure 134/65 Pulse Oximetry 97 04/22/18 13:00 04/22/18 13:19 04/22/18 14:00 Temperature Pulse Rate 84 75 68 Respiratory Rate 18 Blood Pressure Pulse Oximetry 04/22/18 15:00 04/22/18 15:30 04/22/18 15:42 Temperature 98.1 F 98.6 F Pulse Rate 68 114 H 72 Respiratory Rate 18 20 Blood Pressure 107/64 108/43 L Pulse Oximetry 94 L 93 L 04/22/18 16:33 04/22/18 18:00 04/22/18 19:20 Temperature Pulse Rate 78 80 65 Respiratory Rate 20 18 Blood Pressure 101/64 Pulse Oximetry 91 L 04/22/18 19:21 Temperature Pulse Rate Respiratory Rate Blood Pressure Pulse Oximetry 93 L Intake & Output 04/22/18 04/22/18 04/23/18 06:59 18:59 06:59 Intake Total 920 / 920 1600 / 1600 Output Total 1600 / 1600 1200 / 1200 Balance -680 / -680 400 / 400 Weight 110 kg Intake: IV 200 / 200 200 / 200 Zosyn 4.5 GM Premix 4.5 gm In 200 / 200 200 / 200 100 ml @ 200 mls/hr IV.SIG Q6H [facility] Rx#:[id number] Oral 720 / 720 1400 / 1400 Output: Urine 1600 / 1600 1200 / 1200 Other: Date of Last Bowel Movement 04/21/18 04/21/18 - Routine Neurological Exam alert, speech normal CN intact MOTOR 5/5 BUE and BLE - Urinary Catheter Management Indwelling Temp Sensing Catheter Cath placed during this visit: yes, but has since been removed by the nurse Reason for continuing: Hourly intake/output Insertion date: 04/14/18 Insertion time: 08:00 Removal date: 04/16/18 Removal time: 14:00 Objective Laboratory Results - last 24 hr 04/22/18 04/22/18 04/22/18 04:31 04:31 07:52 WBC 14.1 H RBC 2.65 L Hgb 8.1 L Hct 24.3 L MCV 91.8 MCH 30.7 MCHC 33.4 RDW 14.6 Plt Count 415 MPV 7.4 Sodium 132 L Potassium 3.7 Chloride 94 L Carbon Dioxide 30.4 Anion Gap 8 BUN 17 Creatinine 1.08 Estimated GFR 72 L POC Glucose 126 H Random Glucose 107 H Calcium 8.2 L Magnesium 2.4 04/22/18 04/22/18 10:57 18:17 WBC RBC Hgb Hct MCV MCH MCHC RDW Plt Count MPV Sodium Potassium Chloride Carbon Dioxide Anion Gap BUN Creatinine Estimated GFR POC Glucose 118 H 163 H Random Glucose Calcium Magnesium Review/Management - Diagnosis (1) CVA (cerebral vascular accident) Code(s): I63.9 - Cerebral infarction, unspecified Status: Acute Current Visit: Yes - Review/Management Plan: repeat CT brain to evaluate for possible start of anticoagulation
[2018-04-23] MEDS: Melatonin 5 MG Tablet PO PRN ×2 (01:37→21:15)
[2018-04-23] MEDS: LORazepam 1 MG Tablet PO PRN ×2 (01:37→21:13)
[2018-04-23 04:33] LABS: Hematocrit 25.2 % (39.0-51.0); Hemoglobin 8.6 gm/dL (13.0-17.0); Mean Corpuscular HGB Conc 34.3 % (32.0-36.0); Mean Corpuscular Volume 90.4 fL (80.0-100.0); Platelet Count 557 th/mm3 (150-450); Red Blood Count 2.79 mil/mm3 (4.50-5.90); Red Cell Distribution Width 14.5 % (11.6-17.2); White Blood Count 13.6 th/mm3 (4.0-11.0)
[2018-04-23 05:02] LABS: Calcium 8.3 mg/dL (8.5-10.1); Carbon Dioxide 33.4 meq/L (21.0-32.0); Magnesium 2.3 mg/dL (1.5-2.5); Potassium 3.5 meq/L (3.5-5.1)
[2018-04-23] MEDS: Sod Chloride 0.9% Inj 1,000 ML IV.CONT SCH ×3 (05:08→21:15)
[2018-04-23] MEDS: Piperacil/Tazo 4.5 GM Premix 4.5 GM/100 ML BAG IV.SIG SCH ×4 (05:12→23:56)
[2018-04-23] MEDS: Acetaminophen 325 MG Tablet PO PRN ×4 (05:19→21:13)
--- NOTE | 2018-04-23 05:24 | XR ---
EXAM DATE: 04/23/2018 5:03 AM EDT AGE/SEX: 52 years / Male INDICATIONS: Shortness of breath. CLINICAL DATA: This is the patient's subsequent encounter. Patient reports that signs and symptoms h ave been present for 2 weeks and indicates a pain score of 0/10. MEDICAL/SURGICAL HISTORY: . Cerebral vascular accident. Aortic regurgitation. None. COMPARISON: [facility] [place], CHEST EXPIRATION ONLY, 04/22/2018. . FINDINGS: A single AP view of the chest demonstrates significant cardiomegaly. Retrocardiac density within left lower lobe is unchanged. Right lung remains clear. Median sternotomy wires. CONCLUSION: Unchanged exam as detailed above. Electronically signed by: Praveen Justin MD 04/23/2018 5:22 AM EDT
--- NOTE | 2018-04-23 08:05 | US ---
EXAM DATE: 04/22/2018 5:02 PM EDT AGE/SEX: 52 years / Male INDICATIONS: Left pleural effusion. CLINICAL DATA: This is the patient's initial encounter. Patient reports that signs and symptoms have been present for 1 week and indicates a pain score of 5/10. MEDICAL/SURGICAL HISTORY: . Aortic valve regurgitation. Palpitations. . Cardiac surgery. COMPARISON: No prior exams available for comparison. FLUID: Total volume of 100 cc of bloody fluid cc of . fluid was removed. Fluid was discarded. Thoracentesis was therapeutic only. . . TECHNIQUE: Ultrasound guidance for thoracentesis. Thoracentesis. The risks, benefits, and alternatives to ultrasound guided thoracentesis were explained to the patien t in lay simple terms, including the risk of bleeding and infection. Written and verbal informed con sent was obtained. Appropriate area for left thoracentesis was marked under ultrasound guidance with the patient in the upright position. Overlying skin was prepped and draped in the usual sterile fashion and with local anesthetic, a dermatotomy was made with an 11 blade scalpel. A 6 Polish thoracentesis catheter was p laced in the pleural space and fluid was removed. Catheter was then removed and a sterile dressing a pplied. There were no immediate complications. The patient tolerated the procedure well and the left the ultrasound suite in stable condition. Chest radiograph is to be obtained. FINDINGS: Ultrasound imaging demonstrates a complex septated pleural effusion. CONCLUSION: 100 cc of bloody pleural fluid was removed from the left pleural space. The remaining pleural effusio n is too complex to completely drain. Some of the chest x-ray appearance is also related to atelectas is or consolidation. Electronically signed by: Gerhard Ramirez MD 04/23/2018 8:03 AM EDT
[2018-04-23] MEDS: Multivitamin/Minerals Therapeutic Tablet PO SCH (08:29)
[2018-04-23] MEDS: Ramipril 2.5 MG Capsule PO SCH (08:29)
[2018-04-23] MEDS: Digoxin 250 MCG Tablet PO SCH (08:29)
[2018-04-23] MEDS: Aspirin 325 MG Tablet PO SCH (08:29)
[2018-04-23] MEDS: Docusate Sodium 100 MG Capsule PO SCH ×2 (08:29→21:13)
[2018-04-23] MEDS: Senna/Docusate Sodium 8.6/50 MG Tablet PO SCH ×2 (08:30→21:15)
[2018-04-23] MEDS: Polyethylene Glycol 3350 17 GM Packet PO SCH (08:30)
[2018-04-23] MEDS: Ferrous Sulfate 325 MG Tablet PO SCH ×2 (11:38→16:23)
--- NOTE | 2018-04-23 11:59 | P.PNCV ---
- Note Subjective/Hospital Course: This 52-year-old male presented to the emergency room with shortness of breath without exertion for the last month. No syncope or chest pain, but the breathing has become worse over the past week. He has not seen a physician since 2008. He was seen in the past for fatigue and worked up for presyncope in 2005, was seen at that time by Dr. Calderon, was found to have some heart murmur , had an echo, was told he had some aortic valve involvement. The patient presented with a troponin of 0.41. However, the heart catheterization showed no evidence of coronary disease, possibly elevated due to critical aortic stenosis. He underwent also an echocardiogram which showed a valve area of 0.38 , with some trace tricuspid valve regurgitation, trace mitral valve regurgitation, pulmonary artery pressures of 29 mmHg, ejection fraction of 15%, diffuse global AP hypokinesis. There was also a small 12 x 14 mm, round mobile calcified apical left ventricular thrombus. We were consulted for aortic valve replacement. 04/11 The ECHO and angiographic findings were discussed in detail with the patient and his family. The option of mechanical versus tissue valve was discussed in detail as well as the advantages and disadvantages of both types of valves. He understands the provided information and wishes to opt for the tissue valve to avoid life-long anticoagulation therapy. The risks, complications including but not limited to bleeding, infection, stroke, myocardial injury and , and benefits of the surgical procedure were discussed in details and all questions answered. He understands the provided information and agrees to proceed with the planned operation. We will plan on proceeding with the surgical procedure as describe above on Saturday. Thank you for allowing me to participate in the care of this patient. surgery: 04/14 PREOPERATIVE DIAGNOSES 1. Critical Aortic Stenosis. 2. Severe Left Ventricular Dysfunction (EF 15%) 3. NSTEMI 4. Left Ventricular Apical Thrombus POSTOPERATIVE DIAGNOSES Same SURGICAL PROCEDURE Aortic Valve Replacement with a 29 mm Medtronic Mosaic Cinch Tissue valve. crystalloid 4000cc, cell saver 1000cc, EBL 2000cc stroke alert called 15 min after arrival to CVICU left sided weakness, left facial drooping stat CTA head showed acute right MCA stroke thrombectomy completed by IR, placed on Heparin gtt 04/15 Bp stable , low dose lasix given , follows commands , moving left arm and leg , left arm 3/5 left leg 4/5 left facial droop, follows commands consult OT/ speech / has PT / for repeat CT head this am will need coumadin keep in CVIVU for now 04/16 appreciate Neuro input, on full dose ASA, off Heparin gtt/ concern for conversion f/u CT brain next week if stable, then consider coumadin at that time has left peripheral vision neglect , left arm weakness 2-3/5 ambulated with 2 person assist start low dose BB , gentle diuresis , dc julian cath transfer to stepdown in am continue PT/OT speech / being evaluate for [facility] leave chest tube in today , thick bloody clots 04/17 ct dc without difficulty left arm weakness improving ambulating with assistance and walker ok to transfer to stepdown continue full dose aspirin HGB 7.3/ transfuse 2 units of PRBC with lasix after each unit 04/18 pt had low grade temp yesterday after first unit PRBC second unit not given worsening chest xray , US done approximately 250cc/ fluid no thoracentesis if no improvement with pulm toileting , then may need CT chest continue diuresis / aspiration precaution PT/OT / CT Brain pending as per Neuro / eval for potential anticoagulation pt will also need life vest 04/19 Likely stable Upper extremity strength improving considerably. Left lower lobe atelectasis/pneumonia. On antibiotics. Repeat labs in a.m. Continue aggressive pulmonary toiletry Awaiting rehab evaluation 04/20 Doing well In atrial fibrillation with rate control. Will try Amiodarone conversion Rehab upon discharge 04/21 remains in afib rate controlled dose with 150mg amiodarone x 1 decrease diuresis 04/22 worsening CXR / increased fluid collection vs consolidation left lung both calves more swollen, non tender to pt US thoracentesis vs CT guided pending US of lower ext pending pt still will require life vest for discharge await repeat CT Brain for possible anticoagulation convert to NSR 04/23 s/p thoracentesis / drained 100cc bloody drainage continue diuresis ELIAS , BB for CT in am / to eval starting coagulation intermittent AFib , also on amiodarone Objective: Vital Signs - 24 hr 04/22/18 12:00 04/22/18 13:00 04/22/18 13:19 Temperature 97.4 F L Pulse Rate 82 84 75 Respiratory Rate 16 18 Blood Pressure 134/65 Pulse Oximetry 97 04/22/18 14:00 04/22/18 15:00 04/22/18 15:30 Temperature 98.1 F Pulse Rate 68 68 114 H Respiratory Rate 18 Blood Pressure 107/64 Pulse Oximetry 94 L 04/22/18 15:42 04/22/18 16:33 04/22/18 18:00 Temperature 98.6 F Pulse Rate 72 78 80 Respiratory Rate 20 20 Blood Pressure 108/43 L 101/64 Pulse Oximetry 93 L 91 L 04/22/18 19:00 04/22/18 19:20 04/22/18 19:21 Temperature Pulse Rate 80 65 Respiratory Rate 18 Blood Pressure Pulse Oximetry 93 L 04/22/18 20:00 04/22/18 21:00 04/22/18 21:45 Temperature 97.7 F Pulse Rate 80 84 Respiratory Rate 16 16 Blood Pressure 114/75 Pulse Oximetry 98 04/22/18 22:00 04/22/18 23:00 04/23/18 00:00 Temperature 97.7 F Pulse Rate 80 70 70 Respiratory Rate 16 Blood Pressure 97/55 L Pulse Oximetry 96 04/23/18 01:00 04/23/18 02:00 04/23/18 03:00 Temperature Pulse Rate 74 74 80 Respiratory Rate Blood Pressure Pulse Oximetry 04/23/18 04:00 04/23/18 05:00 04/23/18 06:00 Temperature 98.7 F Pulse Rate 76 76 76 Respiratory Rate 16 Blood Pressure 110/56 L Pulse Oximetry 93 L 04/23/18 06:34 04/23/18 07:00 04/23/18 08:00 Temperature 97.9 F Pulse Rate 81 80 Respiratory Rate 16 20 Blood Pressure 101/62 Pulse Oximetry 78 L 04/23/18 09:00 04/23/18 10:00 04/23/18 11:00 Temperature 97.5 F L Pulse Rate 90 84 78 Respiratory Rate 20 Blood Pressure 98/53 L Pulse Oximetry 94 L 04/23/18 11:51 Temperature Pulse Rate Respiratory Rate Blood Pressure Pulse Oximetry 97 GENERAL: A&O x 3 SKIN: Warm and dry. sternal incision intact and well approximated HEAD: Normocephalic. EYES: No scleral icterus. No injection or drainage. NECK: Supple, trachea midline. No JVD or lymphadenopathy. CARDIOVASCULAR: irregular rate and rhythm without murmurs, gallops, or rubs. general edema +2-3 lower ext RESPIRATORY: Breath sounds equal bilaterally. No accessory muscle use. diminished L > R in bases GASTROINTESTINAL: Abdomen soft, non-tender, nondistended. MUSCULOSKELETAL: No cyanosis, or edema. BACK: Nontender without obvious deformity. No CVA tenderness. Labs: Laboratory Results - last 12 hr 04/23/18 04/23/18 04:18 04:18 WBC 13.6 H RBC 2.79 L Hgb 8.6 L Hct 25.2 L MCV 90.4 MCH 31.0 MCHC 34.3 RDW 14.5 Plt Count 557 H D MPV 7.0 Sodium 134 L Potassium 3.5 Chloride 94 L Carbon Dioxide 33.4 H Anion Gap 7 BUN 15 Creatinine 1.16 Estimated GFR 66 L Random Glucose 101 Calcium 8.3 L Magnesium 2.3 Result Diagrams: 04/23/18 04:18 04/23/18 04:18 - Plan (1) Severe left ventricular systolic dysfunction Plan: will need elias, eval for Life vest prior to discharge ELIAS continue diuresis/ BB dig (3) Left ventricular apical thrombus Plan: (5) S/P AVR Plan: on ASA, BB , diuresis pulm toileting (6) Blood loss anemia Plan: s/p one unit PRBC start ferrous sulfate (7) Pleural effusion Plan: continue diuresis s/p thoracentesis drained 100cc bloody drainage (8) Acute CVA (cerebrovascular accident) Plan: ASA, Neuro following PT/OT/ speech therapy repeat CT brain on as per Neuro eval for anticoagulation
[2018-04-23] MEDS: Amiodarone 200 MG Tablet PO SCH ×2 (12:32→21:13)
[2018-04-24 05:29] LABS: INR 1.2 Ratio; Prothrombin Time 12.3 sec (9.8-11.6)
[2018-04-24 05:37] LABS: Calcium 8.3 mg/dL (8.5-10.1); Carbon Dioxide 30.6 meq/L (21.0-32.0); Potassium 3.7 meq/L (3.5-5.1)
[2018-04-24] MEDS: Piperacil/Tazo 4.5 GM Premix 4.5 GM/100 ML BAG IV.SIG SCH ×4 (06:10→23:09)
[2018-04-24] MEDS: Sod Chloride 0.9% Inj 1,000 ML IV.CONT SCH ×2 (06:12→18:28)
[2018-04-24] MEDS: Digoxin 250 MCG Tablet PO SCH (08:38)
[2018-04-24] MEDS: Aspirin 325 MG Tablet PO SCH (08:39)
[2018-04-24] MEDS: Amiodarone 200 MG Tablet PO SCH ×2 (08:39→21:59)
[2018-04-24] MEDS: Multivitamin/Minerals Therapeutic Tablet PO SCH (08:39)
[2018-04-24] MEDS: Senna/Docusate Sodium 8.6/50 MG Tablet PO SCH ×2 (08:40→22:00)
[2018-04-24] MEDS: Polyethylene Glycol 3350 17 GM Packet PO SCH (08:40)
[2018-04-24] MEDS: Acetaminophen 325 MG Tablet PO PRN ×2 (09:08→19:57)
[2018-04-24] MEDS: Docusate Sodium 100 MG Capsule PO SCH ×2 (09:19→22:00)
--- NOTE | 2018-04-24 10:23 | CT ---
EXAM DATE: 04/24/2018 10:12 AM EDT AGE/SEX: 52 years / Male INDICATIONS: Follow up stroke. CLINICAL DATA: This is the patient's initial encounter. Patient reports that signs and symptoms have been present for 1 day and indicates a pain score of 0/10. MEDICAL/SURGICAL HISTORY: Cardiovascular disease. None. RADIATION DOSE: 40.62 CTDI (mGy) COMPARISON: [place], CT HEAD W/O CONTRAST, 04/20/2018. [place], CTA HEAD W CONTRAST W 3D, 04/14/2018. . TECHNIQUE: CT of the head without contrast. Using automated exposure control and adjustment of the mA and/or kV according to patient size, radiation dose was kept as low as reasonably achievable to ob tain optimal diagnostic quality images. DICOM format image data is available electronically for revi ew and comparison. FINDINGS: Cerebrum: The ventricles are normal. There is mild residual low attenuation edema in the right front al lobe and right basal ganglia. This has significantly decreased from the prior study. No midline sh ift, mass lesion, hemorrhage or acute infarction. No extraaxial fluid collections are seen. Posterior Fossa: The cerebellum and brainstem demonstrate no acute abnormality. The 4th ventricle is midline. The cerebellopontine angle is within normal limits. Extracranial: The visualized sinuses are clear. Skull: The calvaria is intact. No skull fracture. CONCLUSION: Significant interval decrease in the right frontal lobe and basal ganglia edema related to recent inf arct. There is only minimal residual edema appreciated. The midline shift has resolved and no acute blood products are present. . Electronically signed by: Gerhard Ramirez MD 04/24/2018 10:22 AM EDT
[2018-04-24] MEDS: Ramipril 2.5 MG Capsule PO SCH (10:46)
[2018-04-24] MEDS: Ferrous Sulfate 325 MG Tablet PO SCH ×2 (11:27→18:09)
--- NOTE | 2018-04-24 16:00 | P.PNCV ---
- Note Subjective/Hospital Course: This 52-year-old male presented to the emergency room with shortness of breath without exertion for the last month. No syncope or chest pain, but the breathing has become worse over the past week. He has not seen a physician since 2008. He was seen in the past for fatigue and worked up for presyncope in 2005, was seen at that time by Dr. Calderon, was found to have some heart murmur , had an echo, was told he had some aortic valve involvement. The patient presented with a troponin of 0.41. However, the heart catheterization showed no evidence of coronary disease, possibly elevated due to critical aortic stenosis. He underwent also an echocardiogram which showed a valve area of 0.38 , with some trace tricuspid valve regurgitation, trace mitral valve regurgitation, pulmonary artery pressures of 29 mmHg, ejection fraction of 15%, diffuse global AP hypokinesis. There was also a small 12 x 14 mm, round mobile calcified apical left ventricular thrombus. We were consulted for aortic valve replacement. 04/11 The ECHO and angiographic findings were discussed in detail with the patient and his family. The option of mechanical versus tissue valve was discussed in detail as well as the advantages and disadvantages of both types of valves. He understands the provided information and wishes to opt for the tissue valve to avoid life-long anticoagulation therapy. The risks, complications including but not limited to bleeding, infection, stroke, myocardial injury and , and benefits of the surgical procedure were discussed in details and all questions answered. He understands the provided information and agrees to proceed with the planned operation. We will plan on proceeding with the surgical procedure as describe above on Saturday. Thank you for allowing me to participate in the care of this patient. surgery: 04/14 PREOPERATIVE DIAGNOSES 1. Critical Aortic Stenosis. 2. Severe Left Ventricular Dysfunction (EF 15%) 3. NSTEMI 4. Left Ventricular Apical Thrombus POSTOPERATIVE DIAGNOSES Same SURGICAL PROCEDURE Aortic Valve Replacement with a 29 mm Medtronic Mosaic Cinch Tissue valve. crystalloid 4000cc, cell saver 1000cc, EBL 2000cc stroke alert called 15 min after arrival to CVICU left sided weakness, left facial drooping stat CTA head showed acute right MCA stroke thrombectomy completed by IR, placed on Heparin gtt 04/15 Bp stable , low dose lasix given , follows commands , moving left arm and leg , left arm 3/5 left leg 4/5 left facial droop, follows commands consult OT/ speech / has PT / for repeat CT head this am will need coumadin keep in CVIVU for now 04/16 appreciate Neuro input, on full dose ASA, off Heparin gtt/ concern for conversion f/u CT brain next week if stable, then consider coumadin at that time has left peripheral vision neglect , left arm weakness 2-3/5 ambulated with 2 person assist start low dose BB , gentle diuresis , dc julian cath transfer to stepdown in am continue PT/OT speech / being evaluate for [facility] leave chest tube in today , thick bloody clots 04/17 ct dc without difficulty left arm weakness improving ambulating with assistance and walker ok to transfer to stepdown continue full dose aspirin HGB 7.3/ transfuse 2 units of PRBC with lasix after each unit 04/18 pt had low grade temp yesterday after first unit PRBC second unit not given worsening chest xray , US done approximately 250cc/ fluid no thoracentesis if no improvement with pulm toileting , then may need CT chest continue diuresis / aspiration precaution PT/OT / CT Brain pending as per Neuro / eval for potential anticoagulation pt will also need life vest 04/19 Likely stable Upper extremity strength improving considerably. Left lower lobe atelectasis/pneumonia. On antibiotics. Repeat labs in a.m. Continue aggressive pulmonary toiletry Awaiting rehab evaluation 04/20 Doing well In atrial fibrillation with rate control. Will try Amiodarone conversion Rehab upon discharge 04/21 remains in afib rate controlled dose with 150mg amiodarone x 1 decrease diuresis 04/22 worsening CXR / increased fluid collection vs consolidation left lung both calves more swollen, non tender to pt US thoracentesis vs CT guided pending US of lower ext pending pt still will require life vest for discharge await repeat CT Brain for possible anticoagulation convert to NSR 04/23 s/p thoracentesis / drained 100cc bloody drainage continue diuresis ELIAS , BB for CT in am / to eval starting coagulation intermittent AFib , also on amiodarone 04/24 CT scan Head resulted / improved/ ok to to start low dose coumadin / Goal INR 2- 2.5 eval for dc in am continue diuresis , BB, ELIAS Objective: Vital Signs - 24 hr 04/23/18 16:00 04/23/18 17:00 04/23/18 18:00 Temperature Pulse Rate 76 72 79 Respiratory Rate Blood Pressure Pulse Oximetry 04/23/18 19:00 04/23/18 20:00 04/23/18 21:00 Temperature 98.8 F Pulse Rate 89 84 80 Respiratory Rate 20 Blood Pressure 92/68 L Pulse Oximetry 92 L 92 L 04/23/18 21:45 04/23/18 22:00 04/23/18 23:00 Temperature 98.8 F Pulse Rate 80 124 H Respiratory Rate 16 20 Blood Pressure 92/68 L Pulse Oximetry 92 L 04/24/18 00:00 04/24/18 01:00 04/24/18 02:00 Temperature Pulse Rate 80 82 70 Respiratory Rate Blood Pressure Pulse Oximetry 04/24/18 03:00 04/24/18 04:00 04/24/18 05:00 Temperature 98.7 F Pulse Rate 94 H 85 87 Respiratory Rate 18 Blood Pressure 104/50 L Pulse Oximetry 94 L 04/24/18 06:00 04/24/18 07:00 04/24/18 08:00 Temperature 97.5 F L Pulse Rate 69 68 72 Respiratory Rate 18 Blood Pressure 101/66 Pulse Oximetry 98 96 04/24/18 09:00 04/24/18 10:00 04/24/18 11:00 Temperature 97.8 F Pulse Rate 72 74 66 Respiratory Rate 18 Blood Pressure 144/71 H Pulse Oximetry 96 04/24/18 11:18 04/24/18 12:00 04/24/18 13:00 Temperature Pulse Rate 65 65 Respiratory Rate Blood Pressure Pulse Oximetry 97 04/24/18 14:00 04/24/18 15:00 Temperature 98.4 F Pulse Rate 69 65 Respiratory Rate 18 Blood Pressure 102/52 L Pulse Oximetry 96 GENERAL: A&O x 3 SKIN: Warm and dry. sternal incision intact and well approximated HEAD: Normocephalic. EYES: No scleral icterus. No injection or drainage. NECK: Supple, trachea midline. No JVD or lymphadenopathy. CARDIOVASCULAR: Regular rate and rhythm without murmurs, gallops, or rubs. RESPIRATORY: Breath sounds equal bilaterally. No accessory muscle use. GASTROINTESTINAL: Abdomen soft, non-tender, nondistended. MUSCULOSKELETAL: No cyanosis, or edema. BACK: Nontender without obvious deformity. No CVA tenderness. Labs: Laboratory Results - last 12 hr 08/23/18 08/23/18 04:52 04:52 PT 12.3 H INR 1.2 Sodium 136 Potassium 3.7 Chloride 96 L Carbon Dioxide 30.6 Anion Gap 9 BUN 19 H Creatinine 1.07 Estimated GFR 73 L Random Glucose 106 Calcium 8.3 L Result Diagrams: 04/23/18 04:18 04/24/18 04:52 - Plan (1) Severe left ventricular systolic dysfunction Plan: will need elias, eval for Life vest prior to discharge ELIAS continue diuresis/ BB dig (3) Left ventricular apical thrombus Plan: (5) S/P AVR Plan: on ASA, BB , diuresis pulm toileting eval for dc in am (6) Blood loss anemia Plan: s/p one unit PRBC start ferrous sulfate (7) Pleural effusion Plan: continue diuresis s/p thoracentesis drained 100cc bloody drainage (8) Acute CVA (cerebrovascular accident) Plan: ASA, Neuro following PT/OT/ speech therapy repeat CT brain on as per Neuro eval for anticoagulation
--- NOTE | 2018-04-24 16:43 | P.DS ---
Date of admission: 04/10/18 09:51 Primary care physician: No Primary Care Physician Attending physician on discharge: Mirian Hernandez Anticipated date of discharge: 04/25/18 Brief History from admission: Patient is a 52-year-old male with past history of aortic regurgitation, cardiomegaly who presents today for abdominal pain. He reports that he began having abdominal pain approximately 1 month ago, is typically present when he is physically active. Is not exacerbated by position or food. At the same time he will have a pain in the center of his back. He also occasionally notes shortness of breath. He denies nausea, vomiting, fever, chills, chest pain, left arm or jaw pain, lightheadedness, change in vision, headache. He did attempt to relieve the abdominal pain with an antacid to no relief. He also reports one episode of dizziness yesterday. He reports he came in today because "I know my body I know when something is up." Patient reports normal bowel movements, soft, brown, no blood or black spots. Normal urination, no dysuria, no change in frequency/color/smell. No other complaints today. 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 Family Mother: Cholecystectomy, "Leaky valve" Father: RA Social EtOH: On the weekends, 8-12 beers Smoking: Chew tobacco ~ 35 years Drugs: None DS: Diagnosis - Discharge Diagnosis (1) Severe left ventricular systolic dysfunction Status: Acute (2) Critical aortic valve stenosis Status: Acute (3) Left ventricular apical thrombus Status: Acute (4) Dilated cardiomyopathy Status: Acute (5) S/P AVR Status: Acute (6) Blood loss anemia Status: Acute (7) Pleural effusion Status: Acute (8) Acute CVA (cerebrovascular accident) Status: Acute DS: Medications - Discharge Medications Prescriptions: amiodarone 200 mg PO Q12HR #28 tab aspirin [Adult Low Dose Aspirin] 81 mg PO DAILY #30 tab atorvastatin 40 mg PO HS #30 tab carvedilol [Coreg] 3.125 mg PO BID #60 tab digoxin 0.125 mg PO DAILY #30 ml docusate sodium [DOK] 100 mg PO DAILY #30 cap furosemide [Lasix] 40 mg PO DAILY PRN #30 tab PRN Reason: heat failure3 hydrocodone-acetaminophen 1 tab PO Q6H PRN #30 tab PRN Reason: Pain Scale 1 To 5 lisinopril 2.5 mg PO DAILY #30 tab ngmvvjqu-hvqr-YC-calcium-mins [Thera M Plus (ferrous fumarat)] 1 tab PO DAILY # 30 tab potassium chloride 20 meq PO DAILY #30 tab warfarin [Coumadin] 5 mg PO DAILY@1600 #30 tab DS: Summary Hospital Course: surgery: 04/14 PREOPERATIVE DIAGNOSES 1. Critical Aortic Stenosis. 2. Severe Left Ventricular Dysfunction (EF 15%) 3. NSTEMI 4. Left Ventricular Apical Thrombus POSTOPERATIVE DIAGNOSES Same SURGICAL PROCEDURE Aortic Valve Replacement with a 29 mm Medtronic Mosaic Cinch Tissue valve. crystalloid 4000cc, cell saver 1000cc, EBL 2000cc stroke alert called 15 min after arrival to CVICU left sided weakness, left facial drooping stat CTA head showed acute right MCA stroke thrombectomy completed by IR, placed on Heparin gtt 04/15 Bp stable , low dose lasix given , follows commands , moving left arm and leg , left arm 3/5 left leg 4/5 left facial droop, follows commands consult OT/ speech / has PT / for repeat CT head this am will need coumadin keep in CVIVU for now 04/16 appreciate Neuro input, on full dose ASA, off Heparin gtt/ concern for conversion f/u CT brain next week if stable, then consider coumadin at that time has left peripheral vision neglect , left arm weakness 2-3/5 ambulated with 2 person assist start low dose BB , gentle diuresis , dc julian cath transfer to stepdown in am continue PT/OT speech / being evaluate for [facility] leave chest tube in today , thick bloody clots 04/17 ct dc without difficulty left arm weakness improving ambulating with assistance and walker ok to transfer to stepdown continue full dose aspirin HGB 7.3/ transfuse 2 units of PRBC with lasix after each unit 04/18 pt had low grade temp yesterday after first unit PRBC second unit not given worsening chest xray , US done approximately 250cc/ fluid no thoracentesis if no improvement with pulm toileting , then may need CT chest continue diuresis / aspiration precaution PT/OT / CT Brain pending as per Neuro / eval for potential anticoagulation pt will also need life vest 04/19 Likely stable Upper extremity strength improving considerably. Left lower lobe atelectasis/pneumonia. On antibiotics. Repeat labs in a.m. Continue aggressive pulmonary toiletry Awaiting rehab evaluation 04/20 Doing well In atrial fibrillation with rate control. Will try Amiodarone conversion Rehab upon discharge 04/21 remains in afib rate controlled dose with 150mg amiodarone x 1 decrease diuresis 04/22 worsening CXR / increased fluid collection vs consolidation left lung both calves more swollen, non tender to pt US thoracentesis vs CT guided pending US of lower ext pending pt still will require life vest for discharge await repeat CT Brain for possible anticoagulation convert to NSR 04/23 s/p thoracentesis / drained 100cc bloody drainage continue diuresis ELIAS , BB for CT in am / to eval starting coagulation intermittent AFib , also on amiodarone 04/24 ok to start coumadin, goal 2-2.5 on room air will eval for dc home in am with HHC - Time Spent with Patient Total time spent providing and/or coordinating discharge services: Greater than 30 minutes - Quality: Stroke Last date observed well: 04/14/18 Last time observed well: 07:30 - Quality: VTE Deep Vein Thrombosis/Pulmonary Embolism Present on Admission: No Exam Vital signs: Vital Signs 04/23/18 17:00 04/23/18 18:00 04/23/18 19:00 Temperature 98.8 F Pulse Rate 72 79 89 Respiratory Rate 20 Blood Pressure 92/68 L Pulse Oximetry 92 L 04/23/18 20:00 04/23/18 21:00 04/23/18 21:45 Temperature Pulse Rate 84 80 Respiratory Rate 16 Blood Pressure Pulse Oximetry 92 L 04/23/18 22:00 04/23/18 23:00 04/24/18 00:00 Temperature 98.8 F Pulse Rate 80 124 H 80 Respiratory Rate 20 Blood Pressure 92/68 L Pulse Oximetry 92 L 04/24/18 01:00 04/24/18 02:00 04/24/18 03:00 Temperature 98.7 F Pulse Rate 82 70 94 H Respiratory Rate 18 Blood Pressure 104/50 L Pulse Oximetry 94 L 04/24/18 04:00 04/24/18 05:00 04/24/18 06:00 Temperature Pulse Rate 85 87 69 Respiratory Rate Blood Pressure Pulse Oximetry 04/24/18 07:00 04/24/18 08:00 04/24/18 09:00 Temperature 97.5 F L Pulse Rate 68 72 72 Respiratory Rate 18 Blood Pressure 101/66 Pulse Oximetry 98 96 04/24/18 10:00 04/24/18 11:00 04/24/18 11:18 Temperature 97.8 F Pulse Rate 74 66 Respiratory Rate 18 Blood Pressure 144/71 H Pulse Oximetry 96 97 04/24/18 12:00 04/24/18 13:00 04/24/18 14:00 Temperature Pulse Rate 65 65 69 Respiratory Rate Blood Pressure Pulse Oximetry 04/24/18 15:00 04/24/18 16:00 Temperature 98.4 F Pulse Rate 65 75 Respiratory Rate 18 Blood Pressure 102/52 L Pulse Oximetry 96 Intake & Output 04/23/18 04/24/18 04/24/18 18:59 06:59 18:59 Intake Total 1600 / 1600 820 / 820 200 / 200 Output Total 1100 / 1100 680 / 680 Balance 500 / 500 140 / 140 200 / 200 Weight 112.5 kg Intake: IV 200 / 200 100 / 100 200 / 200 Zosyn 4.5 GM Premix 4.5 gm In 200 / 200 100 / 100 200 / 200 100 ml @ 200 mls/hr IV.SIG Q6H BORA Rx#:[id number] Oral 1400 / 1400 720 / 720 Output: Urine 1100 / 1100 680 / 680 Other: # Voids 1 Date of Last Bowel Movement 04/23/18 04/24/18 04/24/18 # Bowel Movements 2 - Constitutional no acute distress - Routine HEENT Exam Head: Present: normocephalic Eye: Present: EOMI, PERRL, normal accommodation - Routine Neck Exam Present: supple, full ROM - Routine Chest/Breast/Axilla Exam Chest wall: Present: tenderness - Routine Respiratory Exam Comments: diminished in bases, faint crackles in bases - Routine Cardiovascular Exam Present: RRR, S1, S2 - Routine Abdominal Exam Present: soft, normoactive bowel sounds - Routine Extremities Exam Present: edema - Routine Skin Exam Present: intact, wounds Comments: sternal incision intact and well approximated - Routine Neurological Exam Present: alert, oriented X3 mild weakness left upper arm Results Procedures completed during hospitalization: 04/14 PREOPERATIVE DIAGNOSES 1. Critical Aortic Stenosis. 2. Severe Left Ventricular Dysfunction (EF 15%) 3. NSTEMI 4. Left Ventricular Apical Thrombus POSTOPERATIVE DIAGNOSES Same SURGICAL PROCEDURE Aortic Valve Replacement with a 29 mm Medtronic Mosaic Cinch Tissue valve. Labs on day of discharge: Labs from last 24 hours 04/24/18 04/24/18 04:52 04:52 PT 12.3 H INR 1.2 Sodium 136 Potassium 3.7 Chloride 96 L Carbon Dioxide 30.6 Anion Gap 9 BUN 19 H Creatinine 1.07 Estimated GFR 73 L Random Glucose 106 Calcium 8.3 L - Impressions ITS Impressions Carotid Doppler Study 04/11/18 16:24 CONCLUSION: 1. Right Internal Carotid Artery: No significant stenosis or atherosclerotic plaque is visualized. 2. Left Internal Carotid Artery: No significant stenosis or atherosclerotic plaque is visualized. 3. Antegrade flow both vertebral arteries. Cerebral Arteriogram 04/14/18 00:00 CONCLUSION: 1. Proximal right M1 occlusion. 2. Uncomplicated mechanical thrombectomy of right M1 thrombus with TICI 3 revascularization. Head CTA 04/14/18 14:03 CONCLUSION: 1. Right M1 embolic event. 2. Results were called to Dr. Hernandez at the time of this dictation. Neck CTA 04/14/18 14:03 CONCLUSION: Arch and cervical vessels are patent. Both vertebrals are symmetrically diminutive. Chest Ultrasound 04/18/18 00:00 CONCLUSION: Small volume complex left chest pleural fluid collection. If sampling for diagnostic purposes is clinically indicated, this could be performed under CT guidance. Thoracentesis Ultrasound 04/22/18 00:00 CONCLUSION: 100 cc of bloody pleural fluid was removed from the left pleural space. The remaining pleural effusion is too complex to completely drain. Some of the chest x-ray appearance is also related to atelectasis or consolidation. Venous Doppler Study 04/22/18 00:00 CONCLUSION: 1. The study is negative for bilateral lower extremity deep venous thrombosis. Chest X-Ray 04/23/18 06:00 CONCLUSION: Unchanged exam as detailed above. Head CT 04/24/18 00:00 CONCLUSION: Significant interval decrease in the right frontal lobe and basal ganglia edema related to recent infarct. There is only minimal residual edema appreciated. The midline shift has resolved and no acute blood products are present. . Discharge Plan - Discharge Disposition Patient Disposition: W/Home Health Service - Discharge Condition Condition: Fair - Discharge Details Anticipated Discharge Date: 04/25/18 Discharge Comment: after seen by Dr Hernandez - Physicians Team Primary Care Provider: Primary Care Physici,Kiana Attending Provider: Rick Toscano Other Providers: Anil Triplett MD ; Mirian Hernandez MD ; Janes Jalloh MD ; [facility],[place] ; Ward Hernandez MD, PhD
--- NOTE | 2018-04-24 18:59 | P.PNNEU ---
Subjective Subjective Comments: no new c/o. feels left side strength back to normal. Walking well Active Medications: Active Medications Acetaminophen (Tylenol) 650 mg PO Q4H PRN PRN Reason: FEVER > 101 F Last Admin: 04/24/18 09:08 Dose: 650 mg Hydrocodone Bitart/Acetaminophen (Pilger 5/325) 1 tab PO Q3H PRN PRN Reason: PAIN SCALE 1 TO 5 Last Admin: 04/21/18 16:30 Dose: 1 tab Al Hydroxide/Mg Hydroxide (Milk Of Magnesia Liq) 30 ml PO Q12H PRN PRN Reason: Mild Constipation Al Hydroxide/Mg Hydroxide (Milk Of Magnesia Liq) 30 ml PO DAILY [facility] Last Admin: 04/24/18 08:40 Dose: Not Given Albuterol (Duoneb Neb (Prn)) 1 ampul NEB Q2HR NEB PRN PRN Reason: WHEEZING Last Admin: 04/23/18 12:01 Dose: 1 ampul Amiodarone HCl (Cordarone) 200 mg PO Q12HR [facility] Last Admin: 04/24/18 08:39 Dose: 200 mg Aspirin (Aspirin) 325 mg PO DAILY [facility] Last Admin: 04/24/18 08:39 Dose: 325 mg Atorvastatin Calcium (Lipitor) 40 mg PO HS [facility] Last Admin: 04/23/18 21:14 Dose: 40 mg Bisacodyl (Dulcolax Supp) 10 mg RECTAL PRN PRN PRN Reason: SEE LABEL COMMENTS Carvedilol (Coreg) 3.125 mg PO BID [facility] Last Admin: 04/24/18 08:49 Dose: 3.125 mg Dextrose (D50w Vial) 50 ml IV.PUSH UNSCH PRN PRN Reason: PER HYPOGLYCEMIA PROTOCOL Digoxin (Lanoxin) 250 mcg PO DAILY [facility] Last Admin: 04/24/18 08:38 Dose: 250 mcg Docusate Sodium (Colace) 100 mg PO BID [facility] Last Admin: 04/24/18 09:19 Dose: Not Given Ferrous Sulfate (Ferosul) 325 mg PO BID@1200,1700 [facility] Last Admin: 04/24/18 18:09 Dose: 325 mg Furosemide (Lasix Inj) 40 mg IV.PUSH BID@0900,1800 [facility] Last Admin: 04/24/18 18:09 Dose: 40 mg Glucagon (Glucagon Inj) 1 mg OTHER PRN PRN PRN Reason: For hypoglycemia Sodium Chloride (Ns Inj) 1,000 mls @ 100 mls/hr IV.CONT .Q10H [facility] Last Admin: 04/24/18 18:28 Dose: 100 mls/hr Piperacillin/Tazobactam/Dextrose (Zosyn 4.5 Gm Premix) 4.5 gm in 100 mls @ 200 mls/hr IV.SIG Q6H [facility] Last Infusion: 04/24/18 17:23 Dose: Infused Lisinopril (Prinivil) 2.5 mg PO DAILY [facility] Lorazepam (Ativan) 1 mg PO Q6H PRN PRN Reason: ANXIETY Last Admin: 04/23/18 21:13 Dose: 1 mg Melatonin (Melatonin) 5 mg PO HS PRN PRN Reason: INSOMNIA Last Admin: 04/23/18 21:15 Dose: 5 mg Miscellaneous (Pill Splitter) 1 each OTHER UNSCH [facility] Multivitamins/Minerals (Theragran-M) 1 tab PO DAILY [facility] Last Admin: 04/24/18 08:39 Dose: 1 tab Ondansetron HCl (Zofran Inj) 4 mg IV.PUSH Q6H PRN PRN Reason: NAUSEA OR VOMITING Pantoprazole Sodium (Protonix) 40 mg PO DAILY@06 [facility] Last Admin: 04/24/18 06:11 Dose: 40 mg Patient Medication Teaching (Coumadin Booklet) 1 each OTHER ONCE@1600 [facility] Last Admin: 04/24/18 16:53 Dose: 1 each Polyethylene Glycol (Miralax) 17 gm PO DAILY [facility] Last Admin: 04/24/18 08:40 Dose: Not Given Potassium Chloride (K-Dur) 20 meq PO BID [facility] Last Admin: 04/24/18 08:38 Dose: 20 meq Senna/Docusate Sodium (Lizett-Colace) 1 tab PO BID [facility] Last Admin: 04/24/18 08:40 Dose: Not Given Sennosides (Senokot) 17.2 mg PO Q12H PRN PRN Reason: Moderate Constipation Sennosides (Senokot) 8.6 mg PO HS [facility] Last Admin: 04/23/18 21:16 Dose: Not Given Sodium Biphosphate/Sodium Phosphate (Fleets Enema (Adult)) 118 ml RECTAL UNSCH PRN PRN Reason: SEE LABEL COMMENTS Warfarin Sodium (Coumadin) 5 mg PO DAILY@1600 [facility] Last Admin: 04/24/18 16:53 Dose: 5 mg Allergies/Adverse Reactions: Allergies Allergy/AdvReac Type Severity Reaction Status Date / Time tree and shrub pollen Allergy Intermediate itchy rash Verified 04/10/18 07:48 poison oak extract Allergy Swelling Verified 04/10/18 07:47 of Lip/Tongue/Throat Physical Exam Vital signs: Vital Signs 04/23/18 19:00 04/23/18 20:00 04/23/18 21:00 Temperature 98.8 F Pulse Rate 89 84 80 Respiratory Rate 20 Blood Pressure 92/68 L Pulse Oximetry 92 L 92 L 04/23/18 21:45 04/23/18 22:00 04/23/18 23:00 Temperature 98.8 F Pulse Rate 80 124 H Respiratory Rate 16 20 Blood Pressure 92/68 L Pulse Oximetry 92 L 04/24/18 00:00 04/24/18 01:00 04/24/18 02:00 Temperature Pulse Rate 80 82 70 Respiratory Rate Blood Pressure Pulse Oximetry 04/24/18 03:00 04/24/18 04:00 04/24/18 05:00 Temperature 98.7 F Pulse Rate 94 H 85 87 Respiratory Rate 18 Blood Pressure 104/50 L Pulse Oximetry 94 L 04/24/18 06:00 04/24/18 07:00 04/24/18 08:00 Temperature 97.5 F L Pulse Rate 69 68 72 Respiratory Rate 18 Blood Pressure 101/66 Pulse Oximetry 98 96 04/24/18 09:00 04/24/18 10:00 04/24/18 11:00 Temperature 97.8 F Pulse Rate 72 74 66 Respiratory Rate 18 Blood Pressure 144/71 H Pulse Oximetry 96 04/24/18 11:18 04/24/18 12:00 04/24/18 13:00 Temperature Pulse Rate 65 65 Respiratory Rate Blood Pressure Pulse Oximetry 97 04/24/18 14:00 04/24/18 15:00 04/24/18 16:00 Temperature 98.4 F Pulse Rate 69 65 75 Respiratory Rate 18 Blood Pressure 102/52 L Pulse Oximetry 96 04/24/18 17:00 04/24/18 17:37 04/24/18 18:00 Temperature Pulse Rate 76 78 Respiratory Rate Blood Pressure Pulse Oximetry 96 Intake & Output 08/22/18 08/23/18 08/23/18 18:59 06:59 18:59 Intake Total 1600 / 1600 820 / 820 1540 / 1540 Output Total 1100 / 1100 680 / 680 900 / 900 Balance 500 / 500 140 / 140 640 / 640 Weight 112.5 kg Intake: IV 200 / 200 100 / 100 300 / 300 Zosyn 4.5 GM Premix 4.5 gm In 200 / 200 100 / 100 300 / 300 100 ml @ 200 mls/hr IV.SIG Q6H [facility] Rx#:[id number] Oral 1400 / 1400 720 / 720 1240 / 1240 Output: Urine 1100 / 1100 680 / 680 900 / 900 Other: # Voids 1 Date of Last Bowel Movement 04/23/18 04/24/18 04/24/18 # Bowel Movements 2 - Routine Neurological Exam alert, speech normal CN intact MOTOR 5/5 BUE and BLE - Urinary Catheter Management Indwelling Temp Sensing Catheter Cath placed during this visit: yes, but has since been removed by the nurse Reason for continuing: Hourly intake/output Insertion date: 04/14/18 Insertion time: 08:00 Removal date: 04/16/18 Removal time: 14:00 Objective Radiology Results: CT brain today much improved from prior ct with resolution of cerebral edema with no midline shift. No hemorrhage Laboratory Results - last 24 hr 04/24/18 04/24/18 04:52 04:52 PT 12.3 H INR 1.2 Sodium 136 Potassium 3.7 Chloride 96 L Carbon Dioxide 30.6 Anion Gap 9 BUN 19 H Creatinine 1.07 Estimated GFR 73 L Random Glucose 106 Calcium 8.3 L Review/Management - Diagnosis (1) CVA (cerebral vascular accident) Code(s): I63.9 - Cerebral infarction, unspecified Status: Acute Current Visit: Yes - Review/Management Plan: CT brain much improved today. Ok from neuro standpoint to start coumadin
[2018-04-24] MEDS: Melatonin 5 MG Tablet PO PRN (21:59)
[2018-04-24] MEDS: LORazepam 1 MG Tablet PO PRN (21:59)
[2018-04-25 02:34] VITALS: O2SAT 95
[2018-04-25 04:34] LABS: INR 1.3 Ratio; Prothrombin Time 12.7 sec (9.8-11.6)
[2018-04-25] MEDS: Sod Chloride 0.9% Inj 1,000 ML IV.CONT SCH ×2 (04:55→16:22)
[2018-04-25] MEDS: Piperacil/Tazo 4.5 GM Premix 4.5 GM/100 ML BAG IV.SIG SCH ×3 (05:41→18:09)
[2018-04-25] MEDS: Aspirin 325 MG Tablet PO SCH (08:33)
[2018-04-25] MEDS: Amiodarone 200 MG Tablet PO SCH (08:34)
[2018-04-25] MEDS: Multivitamin/Minerals Therapeutic Tablet PO SCH (08:34)
[2018-04-25] MEDS: Digoxin 250 MCG Tablet PO SCH (08:34)
[2018-04-25] MEDS: Docusate Sodium 100 MG Capsule PO SCH (08:35)
[2018-04-25] MEDS: Polyethylene Glycol 3350 17 GM Packet PO SCH (08:35)
[2018-04-25] MEDS: Senna/Docusate Sodium 8.6/50 MG Tablet PO SCH (08:35)
[2018-04-25] MEDS ORDERED: Lisinopril 5 MG Tablet PO SCH (09:00)
[2018-04-25 10:54] VITALS: RESP 16
[2018-04-25] MEDS: Ferrous Sulfate 325 MG Tablet PO SCH ×2 (11:27→18:09)
--- NOTE | 2018-04-25 14:57 | P.PNCV ---
- Note Subjective/Hospital Course: This 52-year-old male presented to the emergency room with shortness of breath without exertion for the last month. No syncope or chest pain, but the breathing has become worse over the past week. He has not seen a physician since 2008. He was seen in the past for fatigue and worked up for presyncope in 2005, was seen at that time by Dr. Calderon, was found to have some heart murmur , had an echo, was told he had some aortic valve involvement. The patient presented with a troponin of 0.41. However, the heart catheterization showed no evidence of coronary disease, possibly elevated due to critical aortic stenosis. He underwent also an echocardiogram which showed a valve area of 0.38 , with some trace tricuspid valve regurgitation, trace mitral valve regurgitation, pulmonary artery pressures of 29 mmHg, ejection fraction of 15%, diffuse global AP hypokinesis. There was also a small 12 x 14 mm, round mobile calcified apical left ventricular thrombus. We were consulted for aortic valve replacement. 04/11 The ECHO and angiographic findings were discussed in detail with the patient and his family. The option of mechanical versus tissue valve was discussed in detail as well as the advantages and disadvantages of both types of valves. He understands the provided information and wishes to opt for the tissue valve to avoid life-long anticoagulation therapy. The risks, complications including but not limited to bleeding, infection, stroke, myocardial injury and , and benefits of the surgical procedure were discussed in details and all questions answered. He understands the provided information and agrees to proceed with the planned operation. We will plan on proceeding with the surgical procedure as describe above on Saturday. Thank you for allowing me to participate in the care of this patient. surgery: 04/14 PREOPERATIVE DIAGNOSES 1. Critical Aortic Stenosis. 2. Severe Left Ventricular Dysfunction (EF 15%) 3. NSTEMI 4. Left Ventricular Apical Thrombus POSTOPERATIVE DIAGNOSES Same SURGICAL PROCEDURE Aortic Valve Replacement with a 29 mm Medtronic Mosaic Cinch Tissue valve. crystalloid 4000cc, cell saver 1000cc, EBL 2000cc stroke alert called 15 min after arrival to CVICU left sided weakness, left facial drooping stat CTA head showed acute right MCA stroke thrombectomy completed by IR, placed on Heparin gtt 04/15 Bp stable , low dose lasix given , follows commands , moving left arm and leg , left arm 3/5 left leg 4/5 left facial droop, follows commands consult OT/ speech / has PT / for repeat CT head this am will need coumadin keep in CVIVU for now 04/16 appreciate Neuro input, on full dose ASA, off Heparin gtt/ concern for conversion f/u CT brain next week if stable, then consider coumadin at that time has left peripheral vision neglect , left arm weakness 2-3/5 ambulated with 2 person assist start low dose BB , gentle diuresis , dc julian cath transfer to stepdown in am continue PT/OT speech / being evaluate for [facility] leave chest tube in today , thick bloody clots 04/17 ct dc without difficulty left arm weakness improving ambulating with assistance and walker ok to transfer to stepdown continue full dose aspirin HGB 7.3/ transfuse 2 units of PRBC with lasix after each unit 04/18 pt had low grade temp yesterday after first unit PRBC second unit not given worsening chest xray , US done approximately 250cc/ fluid no thoracentesis if no improvement with pulm toileting , then may need CT chest continue diuresis / aspiration precaution PT/OT / CT Brain pending as per Neuro / eval for potential anticoagulation pt will also need life vest 04/19 Likely stable Upper extremity strength improving considerably. Left lower lobe atelectasis/pneumonia. On antibiotics. Repeat labs in a.m. Continue aggressive pulmonary toiletry Awaiting rehab evaluation 04/20 Doing well In atrial fibrillation with rate control. Will try Amiodarone conversion Rehab upon discharge 04/21 remains in afib rate controlled dose with 150mg amiodarone x 1 decrease diuresis 04/22 worsening CXR / increased fluid collection vs consolidation left lung both calves more swollen, non tender to pt US thoracentesis vs CT guided pending US of lower ext pending pt still will require life vest for discharge await repeat CT Brain for possible anticoagulation convert to NSR 04/23 s/p thoracentesis / drained 100cc bloody drainage continue diuresis ELIAS , BB for CT in am / to eval starting coagulation intermittent AFib , also on amiodarone 04/24 CT scan Head resulted / improved/ ok to to start low dose coumadin / Goal INR 2- 2.5 eval for dc in am continue diuresis , BB, ELIAS 04/25 D/C Home Objective: Vital Signs - 24 hr 04/24/18 15:00 04/24/18 16:00 04/24/18 17:00 Temperature 98.4 F Pulse Rate 65 75 76 Respiratory Rate 18 Blood Pressure 102/52 L Pulse Oximetry 96 04/24/18 17:37 04/24/18 18:00 04/24/18 19:00 Temperature 99.6 F Pulse Rate 78 76 Respiratory Rate 18 Blood Pressure 117/55 L Pulse Oximetry 96 97 04/24/18 20:00 04/24/18 21:00 04/24/18 21:57 Temperature Pulse Rate 80 84 Respiratory Rate 16 Blood Pressure Pulse Oximetry 96 04/24/18 22:00 04/24/18 23:00 04/25/18 00:00 Temperature 98.0 F Pulse Rate 80 81 72 Respiratory Rate 18 Blood Pressure 120/67 Pulse Oximetry 95 04/25/18 01:00 04/25/18 02:00 04/25/18 03:00 Temperature 98.0 F Pulse Rate 68 70 76 Respiratory Rate 18 Blood Pressure 113/58 L Pulse Oximetry 95 04/25/18 04:00 04/25/18 05:00 04/25/18 06:00 Temperature Pulse Rate 72 67 68 Respiratory Rate Blood Pressure Pulse Oximetry 04/25/18 07:00 04/25/18 08:00 04/25/18 09:41 Temperature 98.6 F Pulse Rate 73 84 Respiratory Rate 16 Blood Pressure 112/71 Pulse Oximetry 95 95 Labs: Laboratory Results - last 12 hr 04/25/18 04:02 PT 12.7 H INR 1.3 Result Diagrams: 04/23/18 04:18 04/24/18 04:52 - Plan (1) Severe left ventricular systolic dysfunction Plan: will need elias, eval for Life vest prior to discharge ELIAS continue diuresis/ BB dig (3) Left ventricular apical thrombus Plan: (5) S/P AVR Plan: on ASA, BB , diuresis pulm toileting eval for dc in am (6) Blood loss anemia Plan: s/p one unit PRBC start ferrous sulfate (7) Pleural effusion Plan: continue diuresis s/p thoracentesis drained 100cc bloody drainage (8) Acute CVA (cerebrovascular accident) Plan: ASA, Neuro following PT/OT/ speech therapy repeat CT brain on as per Neuro eval for anticoagulation
[2018-04-25 15:42] VITALS: BP 105/57; PULSE 76; TEMP 98.2
== END 2018-04-25 17:33 | disposition home health service (06) ==
LOC: NEPC 06:12 → NEDA 09:51 → HCPC 16:50 → HCVI 04-14 13:32 → HCPC 04-17 16:29
PROVIDERS: ADMIT Family Medicine; ATTEND Family Medicine
PROC: CABGAVR (ICD-10-PCS; 2018-04-14 07:30)